=== PATIENT | female | born 1965 | race African-American/Black ===

== ENCOUNTER 2018-07-10 10:37 | Emergency (ER) | payer MEDICAID ==
[~2018-07-10] VITALS: Ht 167.6 cm; Wt 77.1 kg
[~2018-07-10 10:37] MED LIST: BACL10TA; BUSP10TA90; ESTRAVAN; TRIA37.55
[2018-07-10] MEDS ORDERED: SODIUM CHLORIDE 0.9% 500 ML IVB ONE (10:52)
[2018-07-10] MEDS ORDERED: PANTOPRAZOLE 40 MG/10 ML VIAL IV STA (10:52)
[2018-07-10] MEDS ORDERED: MORPHINE SULFATE 4 MG/ML SYR/VIAL IV ONE (11:00)
[2018-07-10] MEDS ORDERED: ONDANSETRON HCL 4 MG/2 ML VIAL IV ONE (11:00)
[2018-07-10 11:25] LABS: Basophils # (auto) 0.1 uL; Basophils % (auto) 0.7 % (0.0-2.0); Eosinophils # (auto) 0 uL; Eosinophils % (auto) 0.2 % (0.0-7.0); Hematocrit 48.3 % (36.0-46.0); Hemoglobin 16.7 g/dL (12.2-16.2); Lymphocytes # (auto) 2.1 uL; Lymphocytes % (auto) 18.2 % (10.0-50.0); Mean Corpuscular Hemoglobin 32.8 pg (28.0-32.0); Mean Corpuscular Hgb Conc. 34.6 g/dL (32.0-36.0); Mean Corpuscular Volume 94.9 fL (80.0-100.0); Monocytes # (auto) 0.8 uL; Monocytes % (auto) 6.5 % (0.0-12.0); Neutrophils # (auto) 8.7 uL; Neutrophils % (auto) 74.4 % (37.0-80.0); Nucleated Red Blood Cells % 0.1 %; Platelet Count (auto) 285 10^3/uL (140-450); Red Blood Cells 5.09 10^6/uL (4.0-5.20); Red Cell Distribution Width 14.1 % (11.8-14.3); White Blood Cell 11.7 10^3/uL (4.4-10.8)
[2018-07-10 11:37] LABS: Potassium 3.2 mmol/L (3.5-5.1)
[2018-07-10 11:40] LABS: Albumin 4.1 g/dL (3.4-5.0); Calcium 9.5 mg/dL (8.5-10.1); Magnesium 2.2 mg/dL (1.6-2.6)
[2018-07-10 11:45] LABS: BUN/Creatinine Ratio 21.1; Bilirubin, Total 0.5 mg/dL (0.2-1.0); Total Protein 8.6 g/dL (6.4-8.2)
[2018-07-10 12:17] VITALS: BP 160/93
== END 2018-07-10 13:12 | disposition home or self-care (01) ==
LOC: ER 10:37 → EDBD 10:37 → ER 13:12
DX: K52.9 Noninfective gastroenteritis and colitis, unspecified (principal); I10 Essential (primary) hypertension; F17.210 Nicotine dependence, cigarettes, uncomplicated; Z79.899 Other long term (current) drug therapy
CPT/HCPCS: 36415; 74176; 80053; 82150; 83690; 83735; 85025; 94761; 96361; 96374; 96375; 99284; C9113; J2405; J7040

== ENCOUNTER 2024-01-19 16:29 | Inpatient (IN) | payer OTHER, MEDICAID ==
[~2024-01-19] VITALS: Ht 167.6 cm; Wt 85.4 kg
[~2024-01-19 16:29] MED LIST changes: -TRIA37.55; +TRIA37.586
[2024-01-19 16:30] VITALS: PULSE 52; RESP 10; O2SAT 87
[2024-01-19] MEDS: ETOMIDATE (2MG/ML) 20ML VIAL IV ONE (16:32)
[2024-01-19] MEDS: ROCURONIUM 10MG/ML 10ML VIAL IV ONE ×3 (16:32→19:54)
[2024-01-19] MEDS: PROPOFOL 100 ML IV ONE (16:43)
--- NOTE | 2024-01-19 16:44 | ED.PDOC ---
Altered Mental Status HPI Comments 58 year old female OCHOA presents to the ED with chief complaint of seizure-like activity/LOC. EMS reports patient was last seen well 30 minutes ago, however, was found on the ground unresponsive by family. EMS relays patient was noted by family to be having seizure-like activity, but has no history of seizures. EMS denies any further history at this time. Time Seen by MD: 16:39 Primary Care Provider: GRAY Cole Notes: Nurses Notes, Molding Machine Tender Notes, Medications, Allergies Allergies: Coded Allergies: NO KNOWN ALLERGIES (Unverified , 11/04/12) Home Meds Reported Medications Baclofen (Baclofen) 10 Mg Tab, #60 01/22/15 Buspirone Hcl (Buspirone Hcl) 10 Mg Tab, #60 01/22/15 Hydrochlorothiazide W/Triamter (Triamterene/Hydrochloroth) 1 Cap Cap, #30 01/22/15 [Estravan] No Conflict Check 11/04/12 Information Source: Emergency Med Personnel Mode of Arrival: EMS Severity: Unresponsive Timing: Hours Duration: Since onset Prehospital treatment: Oxygen Quality: Decreased Alertness Recent: None History of: None Associated Signs and Symptoms: Seizure Past Medical History PAST MEDICAL HISTORY: Anxiety, HTN Surgical History: Denies all surgeries MILLER WOOD FLOUR History: No Pertinent MILLER WOOD FLOUR History Family History Family History: Unknown Social History Smoker: Cigarettes, Less Than 1 Pack/Day Alcohol: Occasionally Drugs: Denies Drug Use Lives In: Home Unable to Obtain due to: Altered Mental Status, Intubated All Other Systems: Reviewed and Negative Physical Exam General Appearance: No Apparent Distress, Normal HEENT: Normal ENT Inspection Neck: Full Range of Motion, Non-Tender, Normal, Normal Inspection Respiratory: Chest Non-Tender, Lungs Clear, No Accessory Muscle Use, No Respiratory Distress, Normal Breath Sounds Cardiovascular: No Edema, No JVD, No Murmur, No Gallop, Normal Peripheral Pulses, Regular Rate/Rhythm Breast Exam: Deferred Gastrointestinal: No Organomegaly, Non Tender, No Pulsatile Mass, Normal Bowel Sounds, Soft Genitalia: Deferred Pelvic: Deferred Rectal: Deferred Extremities: No calf tenderness, Normal capillary refill, Normal inspection, Normal range of motion, Non-tender, No pedal edema Musculoskeletal : Apperance: Normal Neurologic: Alert, sponsorship coordinator II-XII nml as Tested, No Motor Deficits, Normal Affect, Normal Mood, No Sensory Deficits Cerebellar Function: Normal Reflexes: Normal Skin: Dry, Normal Color, Warm Lymphatic: No Adenopathy Was a procedure done? Was a procedure done?: Yes Sedation Sedation?: Yes Informed consent obtained: No Sedation start time: 16:30 Sedation end time: 16:45 Sedation total time: 15 minutes Sedation provider statement: Propofol given. Central Line Recorder of insertion practice: Before [employer] Babysitter Occupation of software lead: Attending Physician Indication: Volume resuscitation, Suspected infection Room prepared for procedure: Yes [employer] Babysitter performed hand hygien: Yes Maximal sterile barrier precau: Sterile gown, Cap, Sterlie gloves, Large sterlie drape Skin Preparation: Chlorhexidine gluconate Skin preparation completely dr: Yes Insertion site: Right, Femoral Central line catheter type: [id number] dialysis Number of lumens: 3 Central line exchanged over a: No Antiseptic ointment applied to: No Post Assessment: Proper placement Informed consent obtained: No Risks/benefits/alt described: No Intubation Indication: Respiratory Insufficiency, Altered Mental Status, Airway Protection Prep: Preoxygenation Pretreated with: Sedation (Propofol) Medicated with: Other (20mg Rocuronium, 100mg Etomidate) Intubation Approach: Orotracheal Intubation size: cm (8) Informed consent obtained: No Risks/benefits/alt described: No Differential Diagnosis (ALOC) Differential Diagnosis: Hypoglycemia, DKA, Encephalopathy, Meningitis, Sepsis, Hypoxemia, Seizure, CVA, Drug Overdose, Heart Failure, Renal Failure X-Ray, Labs, Meds, VS Vital Signs Date Time Temp Pulse Resp B/P (MAP) Pulse Ox O2 Delivery O2 Flow Rate FiO2 01/19/24 19:48 198/82 01/19/24 19:20 70/43 01/19/24 19:15 51 20 70/43 (52) 86 01/19/24 19:11 80/48 01/19/24 19:00 72 20 205/115 (145) 98 01/19/24 18:50 49 200/109 01/19/24 18:45 97.5 50 20 224/137 (166) 100 97.5 01/19/24 18:39 92 26 198/108 (138) 99 100 01/19/24 18:32 224/137 01/19/24 18:30 97.2 88 20 198/108 (138) 99 97.2 01/19/24 18:15 97.2 51 20 196/105 (135) 100 97.2 01/19/24 18:00 97.3 52 20 189/104 (132) 99 97.3 01/19/24 17:45 56 20 197/110 (139) 99 01/19/24 17:45 197/110 01/19/24 17:30 57 20 177/103 (127) 100 01/19/24 17:00 74 21 191/116 (141) 100 01/19/24 16:57 97.7 97.7 01/19/24 16:56 79 20 188/120 (142) 100 100 01/19/24 16:50 79 20 190/115 (140) 100 01/19/24 16:45 188/120 01/19/24 16:45 86 20 180/120 (140) 100 01/19/24 16:40 103 15 162/117 (132) 100 01/19/24 16:38 106 20 175/125 (142) 100 01/19/24 16:33 52 10 165/83 (110) 100 01/19/24 16:32 165/83 01/19/24 16:30 52 10 87 Room Air* 0 21 01/19/24 16:30 53 01/19/24 16:29 97.7 96 8 162/117 (132) 99 Lab Test 01/19/24 18:15 01/19/24 18:12 01/19/24 17:54 01/19/24 14:03 Range/Units Urine Color Colorless Yellow Urine Clarity Clear Clear Urine pH 6.5 5.0-9.0 Urine Specific [place] 1.031 1.001-1.035 Urine Protein Negative Negative Urine Ketones Negative Negative Urine Blood Negative Negative /uL Urine Nitrite Negative Negative Urine Bilirubin Negative Negative Urine Urobilinogen Normal Negative mg/dL Urine Leukocyte Esterase Negative Negative /uL Urine RBC 1 0 - 4 /hpf Urine WBC <1 0 - 5 /hpf Urine Squamous Epithelial Cells Few <5 /hpf Urine Bacteria None seen None Seen /hpf Urine Glucose Normal Normal mg/dL Urine Opiates Screen Neg NEGATIVE Urine Fentanyl Screen Neg NEGATIVE Urine Barbiturates Screen Neg NEGATIVE Urine Phencyclidine Screen Neg NEGATIVE Urine Amphetamines Screen Neg NEGATIVE Urine Benzodiazepines Screen Neg NEGATIVE Urine Cocaine Screen Neg NEGATIVE Urine Cannabinoids Screen Neg NEGATIVE Blood Gas Specimen Type Arterial Blood Gas Sample Site Right radial Blood Gas Patient Temperature 37.0 Arterial Blood Date Drawn [id number] Arterial Blood pH 7.499 H 7.350-7.450 Arterial Blood Partial Pressure CO2 32.6 32.0-45.0 mmHg Arterial Blood Partial Pressure O2 133.9 H 83.0-108.0 mmHg Arterial Blood HCO3 24.8 21.0-28.0 mmol/L Arterial Blood Oxygen Saturation 99.0 H 94.0-98.0 % Arterial Blood Base Excess 2.4 -2.0-3.0 mmol/L Arterial Blood Oxyhemoglobin 95.5 94.0-98.0 % Arterial Blood Carboxyhemoglobin 3.0 H 0.5-1.5 % Arterial Blood Methemoglobin 0.5 0.0-1.5 % Elijah Test Modified Blood Gas Total Hemoglobin 17.00 H 12.0-16.0 g/dL Blood Gas Set Respiration Rate 20.0 Blood Gas Modality Vent - ac Blood Gas Spontaneous Rate 20 FiO2 % 100.0 Blood Gas Tidal Volume 450.0 Blood Gas PEEP or CPAP 5.0 White Blood Count 7.1 4.4-10.8 10^3/uL Red Blood Count 4.76 4.0-5.20 10^6/uL Hemoglobin 15.9 12.2-16.2 g/dL Hematocrit 46.0 36.0-46.0 % Mean Corpuscular Volume 96.7 80.0-100.0 fL Mean Corpuscular Hemoglobin 33.4 H 28.0-32.0 pg Mean Corpuscular Hemoglobin Concent 34.6 32.0-36.0 g/dL Red Cell Distribution Width 14.1 11.8-14.3 % Platelet Count 208 140-450 10^3/uL Mean Platelet Volume 8.6 6.9-10.8 fL Neutrophils (%) (Auto) 73.2 37.0-80.0 % Lymphocytes (%) (Auto) 18.1 10.0-50.0 % Monocytes (%) (Auto) 7.4 0.0-12.0 % Eosinophils (%) (Auto) 0.8 0.0-7.0 % Basophils (%) (Auto) 0.5 0.0-2.0 % Neutrophils # (Auto) 5.2 1.6-8.6 10 ^3/uL Lymphocytes # (Auto) 1.3 0.4-5.4 10 ^3/uL Monocytes # (Auto) 0.5 0-1.3 10 ^3/uL Eosinophils # (Auto) 0.1 0-0.8 10 ^3/uL Basophils # (Auto) 0 0-0.2 10 ^3/uL Nucleated Red Blood Cells 0.1 % Sodium Level 140 136-145 mmol/L Potassium Level 2.7 L 3.5-5.1 mmol/L Chloride Level 106 98-107 mmol/L Carbon Dioxide Level 26 20-31 mmol/L Anion Gap 8 5-15 Blood Urea Nitrogen < 5 L 9-23 mg/dL Creatinine 0.90 0.550-1.02 mg/dL Glomerular Filtration Rate Calc 73 >90 mL/min BUN/Creatinine Ratio 5.6 L 10.0-20.0 Serum Glucose 130 H 74-106 mg/dL Lactic Acid Level 1.2 0.4-2.0 mmol/L Calcium Level 10.2 8.7-10.4 mg/dL Total Bilirubin 1.1 H 0.2-1.0 mg/dL Aspartate Amino Transferase (AST) 14 13-40 U/L Alanine Aminotransferase (ALT) 17 7-40 U/L Alkaline Phosphatase 80 46-116 U/L Troponin I High Sensitivity 10 14 </=34 ng/L B-Type Natriuretic Peptide 25.66 0-100 pg/mL Total Protein 7.3 5.7-8.2 g/dL Albumin 4.4 3.2-4.8 g/dL Current Medications Medications (Trade) Dose Ordered Sig/Zenon Route Start Time Stop Time Status Last Admin Propofol 100 ml @ 2.7 mls/hr Q24H IV 01/19/24 16:45 01/19/24 16:45 Etomidate 20 mg ONCE ONCE IV 01/19/24 18:00 01/19/24 18:01 MA 01/19/24 16:32 Rocuronium Lutz 100 mg ONCE ONCE IV 01/19/24 18:00 01/19/24 18:01 MA 01/19/24 16:32 Vancomycin HCl 200 ml @ 200 mls/hr ONCE ONCE IV 01/19/24 18:15 01/19/24 19:14 DC 01/19/24 18:26 Azithromycin 250 ml @ 125 mls/hr ONCE ONCE IV 01/19/24 18:15 01/19/24 20:14 DC 01/19/24 20:43 Nicardipine HCl 250 ml @ 50 mls/hr Q5H IV 01/19/24 18:45 01/19/24 18:50 Norepinephrine Bitartrate 250 ml @ 3.75 mls/hr Q24H IV 01/19/24 19:45 01/19/24 19:11 Rocuronium Lutz 100 mg ONCE ONCE IV 01/19/24 19:45 01/19/24 19:46 DC 01/19/24 19:48 CT Head: Findings: Mild diffuse brain atrophy. Mild chronic small-vessel ischemic changes. No hemorrhages, masses, mass effect, midline shift, herniation or cytotoxic edema following a large vascular territory. No intra-axial or extra-axial fluid collections. No evidence of hydrocephalus. The basal cisterns are patent. The cerebellar tonsils are in normal position. The cerebellum is unremarkable.Nonspecific partially empty sella. The orbits and globes are unremarkable. Mucoperiosteal thickening of the ethmoid air cells. The remainder of the paranasal sinuses and mastoids are clear. There are no worrisome calvarial lesions. Impression: No evidence of acute intracranial abnormality. Nonspecific partially empty sella. Head/Neck CT: 1. No large vessel occlusion or high-grade stenosis in the arteries of the head and neck. 2. 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 3. Large amount of fluid in the oropharynx and nasopharynx. Fluid is seen in the dependent portion of trachea. Pulmonary opacities in the right upper lobe and asymmetric reduction in right lung volume. Aspiration pneumonia can not be ruled out. Recommend suctioning of the fluid in oropharynx and trachea. CT Chest/Abd/Pel W/ IV Con: Endotracheal tube with tip terminating superior to t he level of the clavicles. Recommend advancing 5 cm and obtaining follow-up radiographs. Right lower lobe consolidation with rightward deviation of the mediastinum. This may represent a large atelectasis with right lower lobe collapse versus possible mucous plug. A superimposed infectious process is not completely excluded. Fatty infiltration of the cecum which is nonspecific. Chest XR: No acute cardiopulmonary process. X-Ray, Labs, Meds, VS Comment @2030: Dr. Valdez came by bedside and performed a bronchoscopy on the patient at this time. Images Reviewed?: Images reviewed and evaluated by me Time of 1ST Reevaluation: 17:39 Reevaluation 1ST: Unchanged Patient Education/Counseling: Pt Unresponsive Family Education/Counseling: No Family Present Departure 1 Departure Time of Disposition: 20:48 (Patient presented critically ill. She was unresponsive with agonal breathing. Patient was emergently intubated. Central line was placed. Emergent CT scans were taken. Determine the patient did not have an obvious stroke. She was started on antibiotics, fluids, and pressors . She had what appeared to me to be a right lung collapse likely 2/[address] Valdez came to the bedside and bronched the patient. Patient to be admitted to the ICU in critical condition.) Impression: Primary Impression: Acute respiratory failure with hypoxemia Additional Impressions: Acute metabolic encephalopathy Collapse of right lung Disposition: ADMITTED INPATIENT Admit to: ICU Condition: Critical Critical Care Note Critical Care Time?: Yes Critical care comment: Acute respiratory failure Authorized and Performed by: Hansel Carrero MD Total critical care time: Approximately 140 minutes Due to a high probability of clinically significant, life threatening deterioration, the patient required my highest level of preparedness to intervene emergently and I personally spent this critical care time directly and personally managing the patient. This critical care time included obtaining a history; examining the patient; pulse oximetry; ordering and review of studies; arranging urgent treatment with development of a management plan; evaluation of patient's response to treatment; frequent reassessment; and, discussions with other providers. This critical care time was performed to assess and manage the high probability of imminent, life-threatening deterioration that could result in multi-organ failure. It was exclusive of separately billable procedures and treating other patients and teaching time. Please see my other sections and the rest of the note for further information on patient assessment and treatment. Stability Stability form required: No Heart Score Heart Score: Heart Score Response (Comments) Value History N/A 0 EKG N/A 0 Age N/A 0 Risk Factors N/A 0 Troponin N/A 0 Total 0 I personally scribed for HANSEL CARRERO MD ([email or web address]) on 01/19/24 at 16:44. Electronically submitted by Bon Smart ([email or web address]). I personally scribed for HANSEL CARRERO MD ([email or web address]) on 01/19/24 at 17:58. Electronically submitted by Bon Smart ([email or web address]). I personally scribed for [facility] on 01/19/24 at 17:59. Electronically submitted by Bon Smart ([email or web address]). I personally scribed for HANSEL CARRERO MD ([facility] on 01/19/24 at 18:22. Electronically submitted by Bon Smart ([email or web address]). I personally scribed for HANSEL CARRERO MD ([email or web address]) on 01/19/24 at 18:28. Electronically submitted by Bon Smart ([email or web address]). I personally scribed for HANSEL CARRERO MD ([email or web address]) on 01/19/24 at 20:44. Electronically submitted by Bon Smart ([email or web address]). HANSEL CARRERO MD Jan 19, 2024 16:44
[2024-01-19] MEDS: PROPOFOL 100 ML IV SCH (16:45)
[2024-01-19] MEDS: IOHEXOL 180 MG/ML 20ML VIAL IJ ONE (17:49)
--- NOTE | 2024-01-19 17:51 | DVH ---
Procedure: CT HEAD WITHOUT CONTRAST Study Date and Requested Time: 01/19/2024 05:14 PM History:ams, intubated Comparison: None Dose: CTDI: 55.48 mGy DLP: 1000.27 mGycm Technique: Multiplanar images obtained through the brain without intravenous contrast. Findings: Mild diffuse brain atrophy. Mild chronic small-vessel ischemic changes. No hemorrhages, masses, mass effect, midline shift, herniation or cytotoxic edema following a large v ascular territory. No intra-axial or extra-axial fluid collections. No evidence of hydrocephalus. The basal cisterns are patent. The cerebellar tonsils are in normal position. The cerebellum is unremarkable.Nonspecific partially e mpty sella. The orbits and globes are unremarkable. Mucoperiosteal thickening of the ethmoid air cells. The [place]ent[place] ju of the paranasal sinuses and mastoids are clear. There are no worrisome calvarial lesions. Impression: No evidence of acute intracranial abnormality. Nonspecific partially empty sella.
[2024-01-19] MEDS: IOHEXOL 350 MG/ML 100ML IJ ONE (17:54)
--- NOTE | 2024-01-19 18:09 | DVH ---
EXAM: CT ANGIO HEAD/NECK HISTORY: ams, intubated COMPARISON: CT brain without contrast performed earlier today TECHNIQUE: CTA imaging of the head was performed through the [place] following the uneventf ul administration of intravenous contrast. Sagittal and coronal reformatted images were obtained from the source data. 3D/MIP post-processing of the source data set was performed and reviewed by the rad iologist. Radiation Dose Information: CT Dose: CTDI volume is 39.96 mGy. Dose-length product is 1268.95 mGy*cm All CT scans at this medical facility are performed using dose modulation techniques as appropriate t o a performed exam including the following: Automated exposure control was utilized; adjustment of th e MA and/or KV according to patient size; and use of iterative reconstruction technique. FINDINGS: CTA Neck: Aortic Arch: Common origin of the right brachiocephalic and left common carotid arteries. Right brachiocephalic artery: Unremarkable. Right carotid artery: Mild calcified plaque formation of the carotid bulb and proximal ICA without si gnificant stenosis. Right subclavian artery: Unremarkable. Right vertebral artery: Unremarkable. Left carotid artery: Mild calcified plaque formation of the carotid bulb and proximal ICA without sig nificant stenosis. Left subclavian artery: Unremarkable. Left vertebral artery: Unremarkable. OTHER: Pulmonary opacities are seen in the right upper lobe. There is asymmetric reduction in the pa rtially seen right lung volume. Fluid is layered in the dependent portion of trachea. Large amount of fluid is seen in the oropharynx and nasopharynx. Ethmoid is opacified. ETT and NGT are noted. Promin ent thyroid several small hypodense nodules. CTA Head: [place]: The arteries of [place] are patent. Mild scattered calcified plaques of the carotid siphon noted bilaterally without significant stenosis. 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 Dural venous: Grossly unremarkable. Other: None. IMPRESSION: 1. No large vessel occlusion or high-grade stenosis in the arteries of the head and neck. 2. 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 3. Large amount of fluid in the oropharynx and nasopharynx. Fluid is seen in the dependent portion o f trachea. Pulmonary opacities in the right upper lobe and asymmetric reduction in right lung volume. Aspiration pneumonia can not be ruled out. Recommend suctioning of the fluid in oropharynx and trac hea.
--- NOTE | 2024-01-19 18:14 | DVH ---
EXAM: XR Chest, 1 View CLINICAL INDICATION: Post intubation TECHNIQUE: Frontal view of the chest. COMPARISON: None FINDINGS: LUNGS AND PLEURAL SPACES: Congestion. No consolidation. No pneumothorax. HEART: Unremarkable. No cardiomegaly. MEDIASTINUM: Unremarkable. Normal mediastinal contour. BONES/JOINTS: Unremarkable. No acute fracture. TUBES, LINES AND DEVICES: Enteric tube tip in the stomach. ETT nonvisualized. Clinical correlation is recommended. OTHER FINDINGS: . . IMPRESSION: No acute cardiopulmonary process. HS:Y
[2024-01-19 18:19] LABS: Base Excess 2.4 mmol/L (-2.0-3.0)
--- NOTE | 2024-01-19 18:22 | DVH ---
Exam: CT CT CHEST/AB/PL W CON- IV ONLY History: found down ams, intubated Comparison Study: None available at time of dictation. Technique: Multidetector spiral CT of the chest, abdomen and pelvis was performed from lower neck to pubic symphysis. Intravenous contrast was administered during this examination. Portal venous imagi ng was obtained. Axial, coronal and sagittal multiplanar reformats were performed by the technologist on a separate workstation. Radiation Dose : 1. Chest/Abdomen/Pelvis: CTDIvol 19 mGy, DLP 1391 mGy*cm. Findings: Endotracheal tube with tip terminating superior to the level of the clavicles. Recommend advancing 5 cm and obtaining follow-up radiographs. Enteric tube terminating within the stomach. Right groin CVC with tip terminating in the external iliac vein. Lower neck: Within normal limits Lungs: Right lower lobe consolidation concerning for atelectasis. Heart/Vascular Structures: Mild cardiomegaly. Mild calcification of the coronary vessels. There is ri ghtward deviation of the mediastinum. Lymph Nodes: No adenopathy Pleura: Within normal limits Liver: The liver is normal in size. No focal lesions. Normal hepatic vascular enhancement. Gallbladder and Biliary Tree: Unremarkable Spleen: Unremarkable Pancreas: The pancreas is normal in appearance without focal lesions or abnormal enhancement. Adrenal Glands: Unremarkable Kidneys: Kidneys demonstrate normal symmetric enhancement without focal lesions, calculi or hydroneph rosis. Subcentimeter cystic lesion in the right kidney. Bladder: Alberts catheter within urinary bladder. Bowel: The stomach is grossly normal in appearance. Small bowel and colon are normal in caliber and d istribution. The appendix is not visualized; however, no secondary findings of acute appendicitis id entified. Fatty infiltration of the cecum. Ascites: Absent Lymphadenopathy: No mesenteric, retroperitoneal or periportal lymphadenopathy. Abdominal Wall and Mesentery: Unremarkable. Vasculature: The visualized abdominal aorta is normal in size and caliber. Abdominal and pelvic vess els demonstrate normal enhancement. Pelvic Organs: Unremarkable Musculoskeletal: No aggressive focal bony lesions, acute fractures or dislocation. IMPRESSION: Endotracheal tube with tip terminating superior to the level of the clavicles. Recommend advancing 5 cm and obtaining follow-up radiographs. Right lower lobe consolidation with rightward deviation of the mediastinum. This may represent a larg e atelectasis with right lower lobe collapse versus possible mucous plug. A superimposed infectious process is not completely excluded. Fatty infiltration of the cecum which is nonspecific.
[2024-01-19 18:25] LABS: Urine Bacteria None Seen /hpf (None Seen)
[2024-01-19] MEDS: VANCOMYCIN 1GM/200ML PREMIX 200 ML IV ONE (18:26)
[2024-01-19 18:40] LABS: Basophils # (auto) 0 10 ^3/uL (0-0.2); Basophils % (auto) 0.5 % (0.0-2.0); Eosinophils # (auto) 0.1 10 ^3/uL (0-0.8); Eosinophils % (auto) 0.8 % (0.0-7.0); Hemoglobin 15.9 g/dL (12.2-16.2); Lymphocytes # (auto) 1.3 10 ^3/uL (0.4-5.4); Lymphocytes % (auto) 18.1 % (10.0-50.0); Mean Corpuscular Hemoglobin 33.4 pg (28.0-32.0); Mean Corpuscular Hgb Conc. 34.6 g/dL (32.0-36.0); Mean Corpuscular Volume 96.7 fL (80.0-100.0); Monocytes # (auto) 0.5 10 ^3/uL (0-1.3); Monocytes % (auto) 7.4 % (0.0-12.0); Neutrophils # (auto) 5.2 10 ^3/uL (1.6-8.6); Neutrophils % (auto) 73.2 % (37.0-80.0); Nucleated Red Blood Cells % 0.1 %; Platelet Count (auto) 208 10^3/uL (140-450); Red Blood Cells 4.76 10^6/uL (4.0-5.20); Red Cell Distribution Width 14.1 % (11.8-14.3); White Blood Cell 7.1 10^3/uL (4.4-10.8)
[2024-01-19 18:43] LABS: Urine Blood Negative /uL (Negative); Urine Clarity Clear (Clear); Urine Color Colorless (Yellow); Urine Protein, UAD Negative (Negative); Urine Specific Gravity 1.031 (1.001-1.035); Urine Urobilinogen Normal (Negative); Urine WBC <1 /hpf (0 - 5); Urine pH 6.5 (5.0-9.0)
[2024-01-19 18:48] LABS: Amphetamine Screen, Urine Neg (NEGATIVE); Barbiturate Scree,Urine Neg (NEGATIVE); Benzodiazephine Screen, Urine Neg (NEGATIVE); Cannabinoid Screen, Urine Neg (NEGATIVE); Cocaine Screen, Urine Neg (NEGATIVE); Opiate Scree,Urine Neg (NEGATIVE); Phencyclidine Screen, Urine Neg (NEGATIVE)
[2024-01-19 18:49] LABS: Alanine Aminotransferase 17 U/L (7-40); Albumin 4.4 g/dL (3.2-4.8); Alkaline Phosphatase 80 U/L (46-116); Anion Gap 8 (5-15); Aspartate Aminotransferase 14 U/L (13-40); Bilirubin, Total 1.1 mg/dL (0.2-1.0); Calcium 10.2 mg/dL (8.7-10.4); Carbon Dioxide 26 mmol/L (20-31); Chloride 106 mmol/L (98-107); Glucose 130 mg/dL (74-106); Potassium 2.7 mmol/L (3.5-5.1); Sodium 140 mmol/L (136-145); Total Protein 7.3 g/dL (5.7-8.2)
[2024-01-19 19:07] LABS: BUN/Creatinine Ratio 5.6 (10.0-20.0); Blood Urea Nitrogen < 5 mg/dL (9-23)
[2024-01-19] MEDS: NOREPINEPHRINE 8 MG/250ML KIT 250 ML IV SCH (19:11)
--- NOTE | 2024-01-19 19:20 | DVH ---
CHEST RADIOGRAPH Indication:s/p advancing tube Technique: Single frontal view of the chest was obtained Comparison: XY CHEST PORTABLE on DOS: 01/19/24 Findings/ IMPRESSION: Endotracheal tube projects 5.7 cm superior to the toño. Enteric tube projects terminating within th e stomach. Opacification of the right lower lung zone concerning for atelectasis with superimposed in fection not excluded. There is mild rightward deviation of the mediastinum.
[2024-01-19 19:30] VITALS: PULSE 56; RESP 20; O2SAT 100
[2024-01-19 20:08] VITALS: BP 167/107; PULSE 88; RESP 20; O2SAT 99
[2024-01-19] MEDS: AZITHROMYCIN 500MG/ 250ML 250 ML IV ONE (20:43)
--- NOTE | 2024-01-19 21:10 | DVHINCON2 ---
Date of service: Jan 19, [address] Ortega Reason for Consultation Acute hypoxic respiratory failure, suspected mucous plugging. History of Present Illness 58-year-old woman history of anxiety, hypertension who presented with seizure- like activity and loss of consciousness. EMS reports patient was last seen well 30 minutes ago. She was found on the ground unresponsive by family. EMS relays patient was noted by family to have seizure-like activity. No prior history of seizures. She was currently sedated, intubated on mechanical ventilator in the emergency department. Pulmonary consultation was called emergently due to suspected mucus plugging in the right lung, emergent bronchoscopy on mechanical ventilator management. Review of systems: 14 point review of systems is negative unless otherwise noted above. Past medical history: Hypertension, anxiety Past surgical history: None mentioned in prior surgeries. Medications: Reviewed Allergies: No known drug allergies. Family history: No family history of premature CAD. No family history of lung disease Social history: Smoker, less than one pack per day. Social alcohol use. No illicit drug use. Lives at home. Allergies: Coded Allergies: NO KNOWN ALLERGIES (Unverified , 11/04/12) Home Meds Reported Medications Baclofen (Baclofen) 10 Mg Tab, #60 01/22/15 Buspirone Hcl (Buspirone Hcl) 10 Mg Tab, #60 01/22/15 Hydrochlorothiazide W/Triamter (Triamterene/Hydrochloroth) 1 Cap Cap, #30 01/22/15 [Estravan] No Conflict Check 11/04/12 Current Medications Current Medications Medications (Trade) Dose Ordered Sig/Zenon Route PRN Reason Start Time Stop Time Status Last Admin Propofol 100 ml @ 2.7 mls/hr Q24H IV 01/19/24 16:45 01/19/24 16:45 Nicardipine HCl 250 ml @ 50 mls/hr Q5H IV 01/19/24 18:45 01/19/24 18:50 Norepinephrine Bitartrate 250 ml @ 3.75 mls/hr Q24H IV 01/19/24 19:45 01/19/24 19:11 Vital Signs Vital Signs Date Time Temp Pulse Resp B/P (MAP) Pulse Ox O2 Delivery O2 Flow Rate FiO2 01/19/24 19:48 198/82 01/19/24 19:15 51 20 86 01/19/24 18:45 97.5 97.5 01/19/24 18:39 100 01/19/24 16:30 Room Air* 0 Physical Exam Gen.: Patient lying in bed in medical ICU. Sedated, intubated on mechanical ventilator. Head: Normocephalic, atraumatic. Eyes: PERRLA. Ears: Normal external anatomy. Throat: Endotracheal tube and orogastric tube in place. Neck: Supple, trachea midline. Chest: Transmitted breath sounds bilaterally. Decreased air entry bilaterally. No wheezing. Bibasilar crackles. Cardio vascular: Positive S1, positive S2. Regular rate and rhythm. Abdomen: Positive bowel sounds in all 4 quadrants. Soft, nontender, non distended. : Alberts in place. Normal external genitalia. Rectal: Deferred Skin: Warm, dry. Intact. Extremities: 2+ radial pulses bilaterally. No lower extremity edema. Neuro: Sedated. Labs/Diagnostic Data Labs Test 01/19/24 18:15 01/19/24 18:12 01/19/24 17:54 Range/Units Urine Color Colorless Yellow Urine Clarity Clear Clear Urine pH 6.5 5.0-9.0 Urine Specific Jean 1.031 1.001-1.035 Urine Protein Negative Negative Urine Ketones Negative Negative Urine Blood Negative Negative /uL Urine Nitrite Negative Negative Urine Bilirubin Negative Negative Urine Urobilinogen Normal Negative mg/dL Urine Leukocyte Esterase Negative Negative /uL Urine RBC 1 0 - 4 /hpf Urine WBC <1 0 - 5 /hpf Urine Squamous Epithelial Cells Few <5 /hpf Urine Bacteria None seen None Seen /hpf Urine Glucose Normal Normal mg/dL Urine Opiates Screen Neg NEGATIVE Urine Fentanyl Screen Neg NEGATIVE Urine Barbiturates Screen Neg NEGATIVE Urine Phencyclidine Screen Neg NEGATIVE Urine Amphetamines Screen Neg NEGATIVE Urine Benzodiazepines Screen Neg NEGATIVE Urine Cocaine Screen Neg NEGATIVE Urine Cannabinoids Screen Neg NEGATIVE Blood Gas Specimen Type Arterial Blood Gas Sample Site Right radial Blood Gas Patient Temperature 37.0 Arterial Blood Date Drawn [id number] Arterial Blood pH 7.499 H 7.350-7.450 Arterial Blood Partial Pressure CO2 32.6 32.0-45.0 mmHg Arterial Blood Partial Pressure O2 133.9 H 83.0-108.0 mmHg Arterial Blood HCO3 24.8 21.0-28.0 mmol/L Arterial Blood Oxygen Saturation 99.0 H 94.0-98.0 % Arterial Blood Base Excess 2.4 -2.0-3.0 mmol/L Arterial Blood Oxyhemoglobin 95.5 94.0-98.0 % Arterial Blood Carboxyhemoglobin 3.0 H 0.5-1.5 % Arterial Blood Methemoglobin 0.5 0.0-1.5 % Elijah Test Modified Blood Gas Total Hemoglobin 17.00 H 12.0-16.0 g/dL Blood Gas Set Respiration Rate 20.0 Blood Gas Modality Vent - ac Blood Gas Spontaneous Rate 20 FiO2 % 100.0 Blood Gas Tidal Volume 450.0 Blood Gas PEEP or CPAP 5.0 White Blood Count 7.1 4.4-10.8 10^3/uL Red Blood Count 4.76 4.0-5.20 10^6/uL Hemoglobin 15.9 12.2-16.2 g/dL Hematocrit 46.0 36.0-46.0 % Mean Corpuscular Volume 96.7 80.0-100.0 fL Mean Corpuscular Hemoglobin 33.4 H 28.0-32.0 pg Mean Corpuscular Hemoglobin Concent 34.6 32.0-36.0 g/dL Red Cell Distribution Width 14.1 11.8-14.3 % Platelet Count 208 140-450 10^3/uL Mean Platelet Volume 8.6 6.9-10.8 fL Neutrophils (%) (Auto) 73.2 37.0-80.0 % Lymphocytes (%) (Auto) 18.1 10.0-50.0 % Monocytes (%) (Auto) 7.4 0.0-12.0 % Eosinophils (%) (Auto) 0.8 0.0-7.0 % Basophils (%) (Auto) 0.5 0.0-2.0 % Neutrophils # (Auto) 5.2 1.6-8.6 10 ^3/uL Lymphocytes # (Auto) 1.3 0.4-5.4 10 ^3/uL Monocytes # (Auto) 0.5 0-1.3 10 ^3/uL Eosinophils # (Auto) 0.1 0-0.8 10 ^3/uL Basophils # (Auto) 0 0-0.2 10 ^3/uL Nucleated Red Blood Cells 0.1 % Sodium Level 140 136-145 mmol/L Potassium Level 2.7 L 3.5-5.1 mmol/L Chloride Level 106 98-107 mmol/L Carbon Dioxide Level 26 20-31 mmol/L Anion Gap 8 5-15 Blood Urea Nitrogen < 5 L 9-23 mg/dL Creatinine 0.90 0.550-1.02 mg/dL Glomerular Filtration Rate Calc 73 >90 mL/min BUN/Creatinine Ratio 5.6 L 10.0-20.0 Serum Glucose 130 H 74-106 mg/dL Lactic Acid Level 1.2 0.4-2.0 mmol/L Calcium Level 10.2 8.7-10.4 mg/dL Total Bilirubin 1.1 H 0.2-1.0 mg/dL Aspartate Amino Transferase (AST) 14 13-40 U/L Alanine Aminotransferase (ALT) 17 7-40 U/L Alkaline Phosphatase 80 46-116 U/L Troponin I High Sensitivity 10 </=34 ng/L B-Type Natriuretic Peptide 25.66 0-100 pg/mL Total Protein 7.3 5.7-8.2 g/dL Albumin 4.4 3.2-4.8 g/dL Assessment Impression: Acute hypoxic respiratory failure On mechanical ventilator Aspiration pneumonia Acute metabolic encephalopathy Mucus plugging causing collapse of the right lung Atelectasis Obesity, BMI 31.1 Hypokalemia Plan: s/p intubation on mechanical ventilator Head CT : NO acute intracranial abnormality. CXR image and report reviewed. CT chest report and images reviewed: Rightward deviation of the mediastinum. Atelectasis with right lower lobe. Possible mucus plugging. Can not rule out superimposed pneumonia. ABG reviewed. Alkalemia due to respiratory alkalosis. On assist control with respiratory rate of 20, tidal volume 450, peep of five, FiO2 at 100% Titrate FIO2 to keep O2 saturation above 92%. VAP bundle Daily ABG and CXR while intubated. Sedate for ventilatory synchrony. Recommend Propofol and Fentanyl drips. Recommend to taper versed drip. On pressors for hemodynamic support. On Levophed at 10 micrograms/minute. Titrate to keep MAP above 65 mmHg/SBP above 90 mmHg. Continue broad spectrum antibiotics. F/u cultures. F/u RML BAL cultures Monitor renal function due to Acute kidney injury. Monitor electrolytes. Supplement as necessary. Nutritional support. Accucheks, ISS. On nicardipine drip for BP control GI/DVT prophylaxis. Updated family at bedside regarding management plan. Consent obtained for bronchoscopy. With full knowledge of risks and benefits, mother agreed for bronchoscopy with Bronchoalveolar lavage. Condition: Critical Prognosis: Poor given multiple comorbidities. Rest of plan per hospitalist and other consultants. A total of 36 minutes of critical care time was spent reviewing the patient record, examining the patient, making a diagnostic and therapeutic plan, discussing this plan with the medical personnel, following up on diagnostic studies and following the patient for clinical stability excluding any and all procedures. At least 50% of this time was spent in direct, [id number] contact. Thank you Dr. Ortega for allowing me to participate in this patient's care. Further recommendations will depend on patient's clinical course. Please do not hesitate to contact me if you have any questions or concerns. This medical document was created using an electronic medical record system with [employer] dictation system. Although this document has been carefully reviewed, there may still be some phonetic and typographical errors. These areas are purely typographical due to imperfections of the software programs, and do not reflect any compromise in the patient's medical care. Plan discussed with: Other (Mother, RN Graciela, RT MD Shannon Colon, MD Del Valle) CJ FYO MD Jan 19, 2024 21:10
--- NOTE | 2024-01-19 21:14 | DVHNC2 ---
Procedure - Bronchoscopy procedure note: Indications: Right lower lobe collapse, Possible mucous plugging. Medicines: See ED RN notes. Complications: None Procedure: Patient medications and allergies reviewed. The risks and benefits of the procedure and the sedation options and risk were discussed with the patient's healthcare proxy. All questions were answered and informed consent was obtained. Patient identification and proposed procedure were verified prior to the procedure by the physician, and a nurse, and the respiratory therapist in ICU room. The heart rate, respiratory rate, oxygen saturations, blood pressure, adequacy of pulmonary ventilation, and response to care were monitored throughout the procedure. The physical status of the patient was reassessed after the procedure. After obtaining informed consent, the bronchoscope was introduced through the endotracheal tube and advanced into the trachea bronchial tree of both lungs. The procedure was accomplished without difficulty. The patient tolerated the procedure well. Findings: The trachea is in normal caliber. The toño is sharp. The tracheobronchial tree of the right lung was examined to at least the first subsegmental level. The bronchial mucosa and anatomy in the right lung are normal. There are no endobronchial lesions. There was copious clear viscous secretions from right main stem bronchus onward throughout R1-R10. These were suctioned and cleared out. Right middle lobe (RML) Bronchoalveolar lavage (BAL) obtained. RML BAL sent for gram stain and culture. The left upper lobe, lingula, and left lower lobe were examined to at least the first subsegmental level. Bronchial mucosa and anatomy in the left upper lobe and lingula are normal. There were no endobronchial lesions. There was no secretions. There was no active bleeding at the completion of the procedure. Copious clear viscous secretions were suctioned from oropharynx. Likely source of contents found in right lung. Estimated blood loss: Less than 5 mL. Impression: Right upper and lower lobe atelectasis due to mucous plugging Mucous plugging from R1-R10 RML BAL performed Recommendation: Follow-up RML BAL results. Procedure codes: 37165, bronchoscopy, rigid and flexible, including fluoroscopic guidance, one performed; with bronchial endobronchial broncho-alveolar lavage, single or multiple sites CJ FOY MD Jan 19, 2024 21:14
--- NOTE | 2024-01-19 21:26 | DVH ---
CHEST RADIOGRAPH Indication:S/P BRONCHOSCOPY Technique: Single frontal view of the chest was obtained Comparison: XY CHEST PORTABLE on DOS: 01/19/24, XY CHEST PORTABLE on DOS: 01/19/24 Findings/ IMPRESSION: Endotracheal tube projects 4.2 cm superior to the toño. Enteric tube projecting in the stomach. Rig ht lower lung zone opacification concerning for pleural effusion versus atelectasis versus pneumonia. No pneumothorax.
[2024-01-19] MEDS ORDERED: ALBUTEROL SULF 2.5 MG/0.5ML(0.5%) NEB SOLN NEB PRN (22:00)
[2024-01-19] MEDS ORDERED: ACETAMINOPHEN 325 MG TAB PO PRN (22:00)
[2024-01-19] MEDS ORDERED: MORPHINE SULFATE INJ 2 MG/ml SYRG IV PRN (22:00)
[2024-01-19] MEDS ORDERED: ONDANSETRON HCL 4 MG/2 ML VIAL IV PRN (22:00)
[2024-01-19] MEDS ORDERED: NITROGLYCERIN 0.4 MG SL TAB SL PRN (22:00)
[2024-01-19] MEDS ORDERED: IPRATROPIUM BROM 0.5 MG/2.5ML INH SOL NEB PRN (22:00)
[2024-01-19 22:40] VITALS: BP 178/80; PULSE 84; RESP 20; O2SAT 99
[2024-01-19] MEDS: hydrALAZINE HCL 20 MG/ML VL IV ONE (22:54)
[2024-01-19] MEDS: POTASSIUM CHL 20MEQ/100ML 100 ML IV SCH (23:01)
[2024-01-19] MEDS: D5W/SOD CHL 0.45% 1,000 ML IV SCH (23:03)
[2024-01-19 23:20] VITALS: BP 178/80; PULSE 84; RESP 20; TEMP 97.5; O2SAT 100
[2024-01-19] MEDS: CEFEPIME 2GM/50ML NS 50 ML IV ONE (23:30)
[2024-01-20] VITALS (110 sets, daily range): BP systolic 104–204; BP diastolic 47–136; PULSE 58–139; RESP 13–25; TEMP 98.4–99.9; O2SAT 95–100
[2024-01-20 00:39] LABS: Base Excess -1.4 mmol/L (-2.0-3.0)
[2024-01-20 02:38] LABS: Basophils # (auto) 0 10 ^3/uL (0-0.2); Basophils % (auto) 0.3 % (0.0-2.0); Eosinophils # (auto) 0 10 ^3/uL (0-0.8); Eosinophils % (auto) 0.1 % (0.0-7.0); Hemoglobin 16.2 g/dL (12.2-16.2); Lymphocytes # (auto) 1.3 10 ^3/uL (0.4-5.4); Lymphocytes % (auto) 7.7 % (10.0-50.0); Mean Corpuscular Hemoglobin 33.4 pg (28.0-32.0); Mean Corpuscular Hgb Conc. 34.5 g/dL (32.0-36.0); Mean Corpuscular Volume 96.6 fL (80.0-100.0); Monocytes # (auto) 1.1 10 ^3/uL (0-1.3); Monocytes % (auto) 6.6 % (0.0-12.0); Neutrophils # (auto) 13.9 10 ^3/uL (1.6-8.6); Neutrophils % (auto) 85.3 % (37.0-80.0); Platelet Count (auto) 219 10^3/uL (140-450); Red Blood Cells 4.87 10^6/uL (4.0-5.20); White Blood Cell 16.3 10^3/uL (4.4-10.8)
[2024-01-20 02:55] LABS: Alanine Aminotransferase 14 U/L (7-40); Albumin 4.4 g/dL (3.2-4.8); Alkaline Phosphatase 81 U/L (46-116); Anion Gap 11 (5-15); Aspartate Aminotransferase 11 U/L (13-40); Calcium 9.4 mg/dL (8.7-10.4); Carbon Dioxide 23 mmol/L (20-31); Chloride 110 mmol/L (98-107); Glucose 160 mg/dL (74-106); Potassium 3.5 mmol/L (3.5-5.1); Sodium 144 mmol/L (136-145)
[2024-01-20 02:56] LABS: Bilirubin, Total 0.9 mg/dL (0.2-1.0); Total Protein 7.1 g/dL (5.7-8.2)
[2024-01-20 03:29] LABS: BUN/Creatinine Ratio 6.8 (10.0-20.0); Blood Urea Nitrogen < 5 mg/dL (9-23)
[2024-01-20 06:45] LABS: Base Excess -1.9 mmol/L (-2.0-3.0)
--- NOTE | 2024-01-20 06:57 | DVHHP2 ---
History of Present Illness Reason for Visit: Altered mental status History of Present Illness 58-year-old female presents for evaluation of altered mental status. Patient was found unresponsive by family members. Patient was transferred to the emergency department and intubated on arrival. Patient's right lung was noted to be collapsed up with possible mucus plug. Bedside bronchoscopy was performed with positive reinflation of the right lung. Patient is currently sedated and intubated. No further history could be obtained at the moment. Past Medical History Hypertension Past Surgical History Unknown Family History Unknown Smoke: 2 packs per day ALCOHOL: none Lives: with Family Review of Systems Review of Systems Review of systems can not be completed, patient is sedated and intubated. Allergies: Coded Allergies: NO KNOWN ALLERGIES (Unverified , 11/04/12) Medications Current Medications Medications Dose Ordered Sig/Zenon Route Start Time Stop Time Status Last Admin Dose Admin Propofol 100 ml @ 2.7 mls/hr Q24H IV 01/19/24 16:45 01/20/24 03:06 16.2 MLS/HR Nicardipine HCl 250 ml @ 50 mls/hr Q5H IV 01/19/24 18:45 01/20/24 00:15 50 MLS/HR Norepinephrine Bitartrate 250 ml @ 3.75 mls/hr Q24H IV 01/19/24 19:45 01/19/24 19:11 3.75 MLS/HR Albuterol 2.5 mg Q6HPRN PRN NEB 01/19/24 22:00 Ipratropium Egan 0.5 mg Q6HPRN PRN NEB 01/19/24 22:00 Ondansetron HCl 4 mg Q4HP PRN IV 01/19/24 22:00 Enoxaparin Sodium 40 mg DAILY SC 01/20/24 10:00 Acetaminophen 650 mg Q6HP PRN PO 01/19/24 22:00 Nitroglycerin 0.4 mg Q5MINP PRN SL 01/19/24 22:00 Morphine Sulfate 2 mg Q30M PRN IV 01/19/24 22:00 Dextrose/Sodium Chloride 1,000 ml @ 65 mls/hr [id number] IV 01/19/24 22:00 01/19/24 23:03 65 MLS/HR Exam Vital Signs Vital Signs Date Time Temp Pulse Resp B/P (MAP) Pulse Ox O2 Delivery O2 Flow Rate FiO2 01/20/24 06:17 67 01/20/24 06:17 20 98 Mechanical Ventilator+ 30 30 01/20/24 04:30 99.7 132/70 (90) 99.7 149/67 (94) 01/19/24 19:30 0 Exam Gen: 58-year-old female in no apparent distress Skin: Warm, dry, normal color and texture, no rash. HEENT: Normocephalic atraumatic, mucous membranes moist and pink. Neck: Cervical and supraclavicular nodes normal without enlargement, trachea is midline, thyroid gland is normal without masses. Pulmonary: Clear to auscultation and percussion bilaterally. Cardiac: Regular rate and rhythm. No murmur Abdomen: Soft, nontender, nondistended, bowel sounds present all 4 quadrants, no guarding, no rigidity, no organomegaly. Extremities: No cyanosis, clubbing, no edema Neuro: Cranial nerves II through XII grossly intact, normal affect and speech, no focal motor deficits. Labs/Xrays ORDERING PHYSICIAN: HANSEL CARRERO MD PROCEDURE(s): CXRP - CHEST PORTABLE REASON: S/P BRONCHOSCOPY ORDER NUMBER(s): [id number], ACCESSION NUMBER(s): [id number] CHEST RADIOGRAPH Indication:S/P BRONCHOSCOPY Technique: Single frontal view of the chest was obtained Comparison: XY CHEST PORTABLE on DOS: 01/19/24, XY CHEST PORTABLE on DOS: 01/19/24 Findings/ IMPRESSION: Endotracheal tube projects 4.2 cm superior to the toño. Enteric tube projecting in the stomach. Right lower lung zone opacification concerning for pleural effusion versus atelectasis versus pneumonia. No pneumothorax. RING PHYSICIAN: HANSEL CARRERO MD PROCEDURE(s): CAPIV - CT CHEST/AB/PL W CON- IV ONLY REASON: found down ams, intubated ORDER NUMBER(s): [id number], ACCESSION NUMBER(s): [id number] Exam: CT CT CHEST/AB/PL W CON- IV ONLY History: found down ams, intubated Comparison Study: None available at time of dictation. Technique: Multidetector spiral CT of the chest, abdomen and pelvis was performed from lower neck to pubic symphysis. Intravenous contrast was admin istered during this examination. Portal venous imaging was obtained. Axial, coronal and sagittal multiplanar reformats were performed by the technologist on a separate workstation. Radiation Dose : 1. Chest/Abdomen/Pelvis: CTDIvol 19 mGy, DLP 1391 mGy*cm. Findings: Endotracheal tube with tip terminating superior to the level of the clavicles. Recommend advancing 5 cm and obtaining follow-up radiographs. Enteric tube terminating within the stomach. Right groin CVC with tip terminating in the external iliac vein. Lower neck: Within normal limits Lungs: Right lower lobe consolidation concerning for atelectasis. Heart/Vascular Structures: Mild cardiomegaly. Mild calcification of the coronary vessels. There is rightward deviation of the mediastinum. Lymph Nodes: No adenopathy Pleura: Within normal limits Liver: The liver is normal in size. No focal lesions. Normal hepatic vascular enhancement. Gallbladder and Biliary Tree: Unremarkable Spleen: Unremarkable Pancreas: The pancreas is normal in appearance without focal lesions or abnormal enhancement. Adrenal Glands: Unremarkable Kidneys: Kidneys demonstrate normal symmetric enhancement without focal lesions, calculi or hydronephrosis. Subcentimeter cystic lesion in the right kidney. Bladder: Alberts catheter within urinary bladder. Bowel: The stomach is grossly normal in appearance. Small bowel and colon are normal in caliber and distribution. The appendix is not visualized; however, no secondary findings of acute appendicitis identified. Fatty infiltration of the cecum. Ascites: Absent Lymphadenopathy: No mesenteric, retroperitoneal or periportal lymphadenopathy. Abdominal Wall and Mesentery: Unremarkable. Vasculature: The visualized abdominal aorta is normal in size and caliber. Abdominal and pelvic vessels demonstrate normal enhancement. Pelvic Organs: Unremarkable Musculoskeletal: No aggressive focal bony lesions, acute fractures or dislocation. IMPRESSION: Endotracheal tube with tip terminating superior to the level of the clavicles. Recommend advancing 5 cm and obtaining follow-up radiographs. Right lower lobe consolidation with rightward deviation of the mediastinum. This may represent a large atelectasis with right lower lobe collapse versus possible mucous plug. A superimposed infectious process is not completely excluded. Fatty infiltration of the cecum which is nonspecific. RING PHYSICIAN: HANSEL CARRERO MD PROCEDURE(s): HWOCT - HEAD WITHOUT CONTRAST REASON: ams, intubated ORDER NUMBER(s): [id number], ACCESSION NUMBER(s): [id number] Procedure: CT HEAD WITHOUT CONTRAST Study Date and Requested Time: 01/19/2024 05:14 PM History:ams, intubated Comparison: None Dose: CTDI: 55.48 mGy DLP: 1000.27 mGycm Technique: Multiplanar images obtained through the brain without intravenous contrast. Findings: Mild diffuse brain atrophy. Mild chronic small-vessel ischemic changes. No hemorrhages, masses, mass effect, midline shift, herniation or cytotoxic edema following a large vascular territory. No intra-axial or extra-axial fluid collections. No evidence of hydrocephalus. The basal cisterns are patent. The cerebellar tonsils are in normal position. The cerebellum is unremarkable.Nonspecific partially empty sella. The orbits and globes are unremarkable. Mucoperiosteal thickening of the ethmoid air cells. The remainder of the paranasal sinuses and mastoids are clear. There are no worrisome calvarial lesions. Impression: No evidence of acute intracranial abnormality. Nonspecific partially empty sella. Labs Test 01/20/24 06:35 01/20/24 02:26 01/19/24 20:54 01/19/24 18:15 Range/Units Blood Gas Specimen Type Arterial Blood Gas Sample Site Arterial line Blood Gas Patient Temperature 37.0 Arterial Blood Date Drawn [id number] Arterial Blood pH 7.503 H 7.350-7.450 Arterial Blood Partial Pressure CO2 24.7 L 32.0-45.0 mmHg Arterial Blood Partial Pressure O2 86.7 83.0-108.0 mmHg Arterial Blood HCO3 19.0 L 21.0-28.0 mmol/L Arterial Blood Oxygen Saturation 97.2 94.0-98.0 % Arterial Blood Base Excess -1.9 -2.0-3.0 mmol/L Arterial Blood Oxyhemoglobin 95.5 94.0-98.0 % Arterial Blood Carboxyhemoglobin 0.9 0.5-1.5 % Arterial Blood Methemoglobin 0.8 0.0-1.5 % Elijah Test N/a Blood Gas Total Hemoglobin 17.00 H 12.0-16.0 g/dL Blood Gas Set Respiration Rate 20.0 Blood Gas Modality Vent - ac Blood Gas Spontaneous Rate 20 FiO2 % 30.0 Blood Gas Tidal Volume 450.0 Blood Gas PEEP or CPAP 5.0 White Blood Count 16.3 #H 4.4-10.8 10^3/uL Red Blood Count 4.87 4.0-5.20 10^6/uL Hemoglobin 16.2 12.2-16.2 g/dL Hematocrit 47.0 H 36.0-46.0 % Mean Corpuscular Volume 96.6 80.0-100.0 fL Mean Corpuscular Hemoglobin 33.4 H 28.0-32.0 pg Mean Corpuscular Hemoglobin Concent 34.5 32.0-36.0 g/dL Red Cell Distribution Width 14.0 11.8-14.3 % Platelet Count 219 140-450 10^3/uL Mean Platelet Volume 7.9 6.9-10.8 fL Neutrophils (%) (Auto) 85.3 H 37.0-80.0 % Lymphocytes (%) (Auto) 7.7 L 10.0-50.0 % Monocytes (%) (Auto) 6.6 0.0-12.0 % Eosinophils (%) (Auto) 0.1 0.0-7.0 % Basophils (%) (Auto) 0.3 0.0-2.0 % Neutrophils # (Auto) 13.9 H 1.6-8.6 10 ^3/uL Lymphocytes # (Auto) 1.3 0.4-5.4 10 ^3/uL Monocytes # (Auto) 1.1 0-1.3 10 ^3/uL Eosinophils # (Auto) 0 0-0.8 10 ^3/uL Basophils # (Auto) 0 0-0.2 10 ^3/uL Nucleated Red Blood Cells 0.0 % Sodium Level 144 136-145 mmol/L Potassium Level 3.5 3.5-5.1 mmol/L Chloride Level 110 H 98-107 mmol/L Carbon Dioxide Level 23 20-31 mmol/L Anion Gap 11 5-15 Blood Urea Nitrogen < 5 L 9-23 mg/dL Creatinine 0.73 0.550-1.02 mg/dL Glomerular Filtration Rate Calc 94 >90 mL/min BUN/Creatinine Ratio 6.8 L 10.0-20.0 Serum Glucose 160 H 74-106 mg/dL Calcium Level 9.4 8.7-10.4 mg/dL Total Bilirubin 0.9 0.2-1.0 mg/dL Aspartate Amino Transferase (AST) 11 L 13-40 U/L Alanine Aminotransferase (ALT) 14 7-40 U/L Alkaline Phosphatase 81 46-116 U/L Total Protein 7.1 5.7-8.2 g/dL Albumin 4.4 3.2-4.8 g/dL Troponin I High Sensitivity 15 </=34 ng/L Urine Color Colorless Yellow Urine Clarity Clear Clear Urine pH 6.5 5.0-9.0 Urine Specific G[place] 1.031 1.001-1.035 Urine Protein Negative Negative Urine Ketones Negative Negative Urine Blood Negative Negative /uL Urine Nitrite Negative Negative Urine Bilirubin Negative Negative Urine Urobilinogen Normal Negative mg/dL Urine Leukocyte Esterase Negative Negative /uL Urine RBC 1 0 - 4 /hpf Urine WBC <1 0 - 5 /hpf Urine Squamous Epithelial Cells Few <5 /hpf Urine Bacteria None seen None Seen /hpf Urine Glucose Normal Normal mg/dL Urine Opiates Screen Neg NEGATIVE Urine Fentanyl Screen Neg NEGATIVE Urine Barbiturates Screen Neg NEGATIVE Urine Phencyclidine Screen Neg NEGATIVE Urine Amphetamines Screen Neg NEGATIVE Urine Benzodiazepines Screen Neg NEGATIVE Urine Cocaine Screen Neg NEGATIVE Urine Cannabinoids Screen Neg NEGATIVE Test 01/19/24 17:54 Range/Units Lactic Acid Level 1.2 0.4-2.0 mmol/L B-Type Natriuretic Peptide 25.66 0-100 pg/mL Assessment/Plan Assessment/Plan Assessment Acute hypoxic respiratory failure right collapsed lung, status post bronchoscopy Hypokalemia Possible pneumonia Plan Admit the patient to ICU to the hospitalist Rocephin/azithromycin Resume home medications Continue treatment per orders Total critical care time is 50 minutes excluding procedures performed. Plan discussed with: Other My Orders Orders - CHAMP HANEY AGACNP Procedure Category Date Status Time Albuterol Medneb PHA 01/19/24 In Process (Ventolin Medneb) 22:00 Ipratropium Medneb PHA 01/19/24 In Process (Atrovent Medneb) 22:00 Admit ADMIT 01/19/24 Transmitted 21:51 Ondansetron Hcl PHA 01/19/24 In Process (Zofran) 22:00 Enoxaparin Sodium PHA 01/20/24 In Process (Lovenox) 10:00 Condition: Critical PAZ 01/19/24 In Process 21:51 Acetaminophen Tablet PHA 01/19/24 In Process (Tylenol Tablet) 22:00 Maintain Bed Rest PAZ 01/19/24 In Process 21:51 Sequential PAZ 01/19/24 In Process Compression Device Nitroglycerin PHA 01/19/24 In Process Sublingual (Ntrostat 22:00 Morphine Sulfate PHA 01/19/24 In Process Injection 22:00 Stat Ekg For Chest PAZ 01/19/24 In Process Pain 21:51 Notify Md Of Changes PAZ 01/19/24 In Process From Base 21:51 Check Writer Salesperson For [facility] 01/19/24 In Process 24 Hours 21:51 Emergency Dysrhythmia PAZ 01/19/24 In Process Protocol 21:51 Rhythm Strips Once PAZ 01/19/24 In Process Every Shift 21:51 Oxygen By Nasal RT 01/19/24 Transmitted Cannula 21:51 D5w/Sod Chl 0.45% PHA 01/19/24 In Process (D5w 1/2ns) 22:00 * Wound Consult CONS 01/20/24 Transmitted * Dietary Consult CONS 01/20/24 Transmitted 06:25 Date of Service: Jan 19, 2024 Billing Provider: CHAMP HANEY Common Visit Codes: [id number] CARE 30-74 MIN CHAMP HANEY Jan 20, 2024 06:57
[2024-01-20] MEDS: cefTRIAXone 1GM/50ML D5W 50 ML IV SCH (09:57)
[2024-01-20] MEDS: AZITHROMYCIN 500MG/ 250ML 250 ML IV SCH (09:58)
[2024-01-20] MEDS: ENOXAPARIN SOD 40 MG/0.4 ML SYRINGE SC SCH (10:00)
--- NOTE | 2024-01-20 10:04 | DVHNC2 ---
Arterial Puncture Indication: Assess ventilatory status, Assess acid-base status Procedure: Sterile Preparation, Arterial Punct Obtained Location: Right Femoral Informed consent obtained: Yes Risks/benefits/alt described: Yes Date of Service: Jan 19, 2024 Billing Provider: HANSEL CARREOR MD Common Visit Codes: PROCEDURE ONLY RAMOS CLANCY RESIDENT Jan 20, 2024 10:04
--- NOTE | 2024-01-20 11:12 | ECG ---
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
[2024-01-20 12:19] LABS: Phosphorus 2.9 mg/dL (2.4-5.1)
[2024-01-20] MEDS: POTASSIUM CHL 20MEQ/100ML 100 ML IV ONE (14:24)
--- NOTE | 2024-01-20 14:55 | DVHPN2 ---
Subjective Patient intubated and chemically sedated Reviewed: Care Plan, H&P, Labs, Medications Changes from previous H/P or p: No Changes General: Per HPI Objective Vitals Vital Signs Date Time Temp Pulse Resp B/P (MAP) Pulse Ox O2 Delivery O2 Flow Rate FiO2 01/20/24 14:14 73 155/68 01/20/24 14:00 30 01/20/24 14:00 16 97 Mechanical Ventilator+ 01/20/24 06:45 99.3 99.3 01/19/24 19:30 0 Intake/Output Intake and Output 01/20/24 07:00 Intake Total 1631.6 ml Output Total 2600 ml Balance -968.4 ml Intake IV Total 1631.6 ml Output Urine Total 2600 ml # Bowel Movements 1 General Appearance: moderate distress HEENT: Atraumatic, PERRLA Lungs: Clear to auscultation, Normal air movement, Other (Mechanical ventilation) Cardiovascular: Normal S1, Normal S2 Abdomen: Normal bowel sounds, No tenderness, No hepatospenomegaly Genitourinary: No Apparent Abnormalities (Alberts catheterization) Musculoskeletal: Other (No motor removed) Neuro: Other (Unable to assess) Psych/Mental Status: Other (Unable to assess) Medications Current Medications Medications Dose Ordered Sig/Zenon Route Start Time Stop Time Status Last Admin Dose Admin Propofol 100 ml @ 2.7 mls/hr Q24H IV 01/19/24 16:45 01/20/24 13:51 16.2 MLS/HR Nicardipine HCl 250 ml @ 50 mls/hr Q5H IV 01/19/24 18:45 01/20/24 14:14 125 MLS/HR Norepinephrine Bitartrate 250 ml @ 3.75 mls/hr Q24H IV 01/19/24 19:45 01/19/24 19:11 3.75 MLS/HR Ondansetron HCl 4 mg Q4HP PRN IV 01/19/24 22:00 Enoxaparin Sodium 40 mg DAILY SC 01/20/24 10:00 01/20/24 10:00 40 MG Acetaminophen 650 mg Q6HP PRN PO 01/19/24 22:00 Nitroglycerin 0.4 mg Q5MINP PRN SL 01/19/24 22:00 Morphine Sulfate 2 mg Q30M PRN IV 01/19/24 22:00 Dextrose/Sodium Chloride 1,000 ml @ 65 mls/hr [id number] IV 01/19/24 22:00 01/20/24 14:24 65 MLS/HR Ceftriaxone Sodium 50 ml @ 100 mls/hr DAILY@09 IV 01/20/24 09:00 01/20/24 09:57 100 MLS/HR Azithromycin 250 ml @ 125 mls/hr DAILY IV 01/20/24 10:00 01/20/24 09:58 125 MLS/HR Albuterol 2.5 mg Q6HR NEB 01/20/24 18:00 Ipratropium [place] 0.5 mg Q6HR NEB 01/20/24 18:00 Acetylcysteine 100 mg Q6HR NEB 01/20/24 18:00 01/21/24 12:01 Pantoprazole Sodium 40 mg DAILY IV 01/21/24 10:00 Laboratory Results Laboratory Tests 01/20/24 02:26 Chemistry Test 01/19/24 17:54 01/20/24 02:26 Albumin 4.4 g/dL (3.2-4.8) 4.4 g/dL (3.2-4.8) Calcium Level 10.2 mg/dL (8.7-10.4) 9.4 mg/dL (8.7-10.4) Total Protein 7.3 g/dL (5.7-8.2) 7.1 g/dL (5.7-8.2) Magnesium Level 2.0 mg/dL (1.6-2.6) Phosphorus Level 2.9 mg/dL (2.4-5.1) Cardiac Markers Test 01/19/24 17:54 B-Type Natriuretic Peptide 25.66 pg/mL (0-100) LFT Test 01/19/24 17:54 01/20/24 02:26 Alanine Aminotransferase (ALT) 17 U/L (7-40) 14 U/L (7-40) Alkaline Phosphatase 80 U/L (46-116) 81 U/L (46-116) Aspartate Amino Transferase (AST) 14 U/L (13-40) 11 U/L (13-40) L Total Bilirubin 1.1 mg/dL (0.2-1.0) H 0.9 mg/dL (0.2-1.0) Urinalysis Test 01/19/24 18:15 Urine Color Colorless (Yellow) Urine Clarity Clear (Clear) Urine pH 6.5 (5.0-9.0) Urine Specific [place] 1.031 (1.001-1.035) Urine Protein Negative (Negative) Urine Ketones Negative (Negative) Urine Blood Negative /uL (Negative) Urine Nitrite Negative (Negative) Urine Bilirubin Negative (Negative) Urine Urobilinogen Normal mg/dL (Negative) Urine Leukocyte Esterase Negative /uL (Negative) Urine RBC 1 /hpf (0 - 4) Urine WBC <1 /hpf (0 - 5) Urine Squamous Epithelial Cells Few /hpf (<5) Urine Bacteria None seen /hpf (None Seen) Urine Glucose Normal mg/dL (Normal) Blood Gas Results Test 01/19/24 18:12 01/20/24 00:34 01/20/24 06:35 Arterial Blood pH 7.499 (7.350-7.450) 7.465 (7.350-7.450) 7.503 (7.350-7.450) FiO2 % 100.0 80.0 30.0 Microbiology Microbiology Date/Time Source Procedure Growth Status 01/19/24 20:48 Bronchial Washings Gram Stain - Final Resulted 01/19/24 20:48 Bronchial Washings Respiratory Culture - Preliminary Resulted Labs and/or images reviewed: Labs reviewed by me, Image(s) reviewed by me Assessment/Plan Assessment/Plan LImpression: -acute hypoxic respiratory failure on mechanical ventilation -probable aspiration pneumonia -breakthrough seizure activity -history of anxiety disorder, probable other underlying psychosis, not otherwise specified -obesity -leukocytosis, probable sepsis -right upper bronchus occlusion secondary to mucus plugging -accelerated hypertension Plan: -continue mechanical ventilation -bronchodilators q.6 hours, add Mucomyst q.6 hours -continue current sedation with propofol -continue nicardipine drip. Add lisinopril and amlodipine, home doses -PUD, DVT prophylaxis -repeat labs in a.m. -pulmonology consultation on board. Possible spontaneous breathing trial in a.m. Critical care time spent with patient discussing and formulating plan of care: 90 minutes. This does not include time spent performing procedures. This medical document was created using an electronic medical record system with [employer] dictation system. Although this document has been carefully reviewed, there may still be some phonetic and typographical errors. These areas are purely typographical due to imperfections of the software programs, and do not reflect any compromise in the patient's medical care. Plan discussed with: Patient, Daughter, Other (RN, mother) My Orders Orders - PIA HEATH NP Procedure Category Date Status Time Albuterol Medneb PHA 01/20/24 In Process (Ventolin Medneb) 18:00 Ipratropium Medneb PHA 01/20/24 In Process (Atrovent Medneb) 18:00 Acetylcysteine PHA 01/20/24 In Process Inhalation 10% 18:00 Blood Culture DAVID 01/20/24 Logged 14:16 Pantoprazole PHA 01/21/24 In Process (Protonix) 10:00 Chest Xray 1 View XY 01/20/24 Taken 14:16 Basic Metabolic Panel LAB 01/21/24 Verified 04:00 Chest Portable XY 01/21/24 Logged 04:00 Abg W/ Co-Ox RT 01/21/24 Logged 04:00 Complete Blood Count LAB 01/21/24 Verified 04:00 Lisinopril Tablet PHA 01/20/24 Logged (Zestril Tablet) 14:45 Amlodipine Tablet PHA 01/21/24 Logged (Norvasc Tablet) 10:00 Date of Service: Jan 20, 2024 Billing Provider: PIA HEATH NP Common Visit Codes: 69309-[id number] CARE 30-74 MIN, 33553-HOHTWWWE CARE-EACH +30MIN PIA HEATH NP Jan 20, 2024 14:55
--- NOTE | 2024-01-20 15:43 | DVH ---
CHEST RADIOGRAPH Indication:aspiration pna Technique: Single frontal view of the chest was obtained COMPARISON: XY CHEST PORTABLE on DOS: 01/19/24, XY CHEST PORTABLE on DOS: 01/19/24, XY CHEST PORTABLE on DOS: 01/19/24 FINDINGS: Lines and Tubes: Endotracheal tube and enteric catheter in satisfactory position. Lungs: Pulmonary vascular congestion. Pleura: No effusion. No pneumothorax. Cardiomediastinal contours: Unremarkable Bones: Unremarkable IMPRESSION: Lines and tubes in satisfactory position. No significant interval change.
[2024-01-20] MEDS: LISINOPRIL 20 MG TAB PO SCH (15:56)
--- NOTE | 2024-01-20 18:30 | DVHPN2 ---
Progress Note - Dictate Date Seen: Jan 20, 2024 Medical Necessity Reason Pt with a Central, PICC or Fol: No Subjective Patient seen and examined at bedside. Sedated, intubated on mechanical ventilator. Overnight events reviewed. vital signs Vital Sign Date Time Temp Pulse Resp B/P (MAP) Pulse Ox O2 Delivery O2 Flow Rate FiO2 01/20/24 16:12 80 16 146/66 (92) 98 30 01/20/24 14:00 Mechanical Ventilator+ 01/20/24 08:45 99.0 99.0 01/19/24 19:30 0 Total Intake and Output 01/19/24 01/19/24 01/20/24 15:00 23:00 07:00 Intake Total 530.0 ml 1232.8 ml Output Total 2600 ml Balance 530.0 ml -1367.2 ml medications Current Medications Medications Dose Ordered Sig/Zenon Route Start Time Stop Time Status Last Admin Dose Admin Propofol 100 ml @ 2.7 mls/hr Q24H IV 01/19/24 16:45 01/20/24 13:51 16.2 MLS/HR Nicardipine HCl 250 ml @ 50 mls/hr Q5H IV 01/19/24 18:45 01/20/24 14:14 125 MLS/HR Norepinephrine Bitartrate 250 ml @ 3.75 mls/hr Q24H IV 01/19/24 19:45 01/19/24 19:11 3.75 MLS/HR Ondansetron HCl 4 mg Q4HP PRN IV 01/19/24 22:00 Enoxaparin Sodium 40 mg DAILY SC 01/20/24 10:00 01/20/24 10:00 40 MG Acetaminophen 650 mg Q6HP PRN PO 01/19/24 22:00 Nitroglycerin 0.4 mg Q5MINP PRN SL 01/19/24 22:00 Morphine Sulfate 2 mg Q30M PRN IV 01/19/24 22:00 Dextrose/Sodium Chloride 1,000 ml @ 65 mls/hr [id number] IV 01/19/24 22:00 01/20/24 14:24 65 MLS/HR Ceftriaxone Sodium 50 ml @ 100 mls/hr DAILY@09 IV 01/20/24 09:00 01/20/24 09:57 100 MLS/HR Azithromycin 250 ml @ 125 mls/hr DAILY IV 01/20/24 10:00 01/20/24 09:58 125 MLS/HR Albuterol 2.5 mg Q6HR NEB 01/20/24 18:00 Ipratropium [place] 0.5 mg Q6HR NEB 01/20/24 18:00 Acetylcysteine 100 mg Q6HR NEB 01/20/24 18:00 01/21/24 12:01 Pantoprazole Sodium 40 mg DAILY IV 01/21/24 10:00 Lisinopril 40 mg DAILY PO 01/20/24 14:45 01/20/24 15:56 40 MG Amlodipine Besylate 10 mg DAILY PO 01/21/24 10:00 objective Gen.: Patient lying in bed in medical ICU. Sedated, intubated on mechanical ventilator. Head: Normocephalic, atraumatic. Eyes: PERRLA. Ears: Normal external anatomy. Throat: Endotracheal tube and orogastric tube in place. Neck: Supple, trachea midline. Chest: Transmitted breath sounds bilaterally. Decreased air entry bilaterally. No wheezing. Bibasilar crackles. Cardiovascular: Positive S1, positive S2. Regular rate and rhythm. Abdomen: Positive bowel sounds in all 4 quadrants. Soft, nontender, nondistended. : Alberts in place. Normal external genitalia. Rectal: Deferred. Skin: Warm, dry. Intact. Extremities: 2+ radial pulses bilaterally. No lower extremity edema. Neuro: Sedated. laboratory and microbiology Laboratory Tests 01/20/24 02:26 Test 01/20/24 02:26 Range/Units Serum Glucose 160 H 74-106 mg/dL Assessment/Plan Impression: Acute hypoxic respiratory failure On mechanical ventilator Aspiration pneumonia Acute metabolic encephalopathy Mucus plugging causing collapse of the right lung Atelectasis Obesity, BMI 31.1 Hypokalemia Events: Remains on vent support On assist control with respiratory rate of 16, tidal volume 450, PEEP of 5, FiO2 at 30% Titrate FIO2 to keep O2 saturation above 92%. ABG reviewed, shows alkalemia RR decreased to 16 CXR reviewed, demonstrates improved aeration of right upper/mid lung zones. Increase PEEP to 8 to improve aeration of RLL. Sedated with Propofol Nicardipine drip for increased blood pressure. Check mag, phos Monitor renal function Labs and imaging reviewed. Rest of plan as noted below. Plan: s/p intubation on mechanical ventilator Head CT: No acute intracranial abnormality. CXR image and report reviewed. CT chest report and images reviewed: Rightward deviation of the mediastinum. Atelectasis with right lower lobe. Possible mucus plugging. Can not rule out superimposed pneumonia. ABG reviewed. Alkalemia due to respiratory alkalosis. On assist control with respiratory rate of 16, tidal volume 450, PEEP of 5, FiO2 at 30% Titrate FIO2 to keep O2 saturation above 92%. VAP bundle Daily ABG and CXR while intubated. Sedate for ventilatory synchrony - on Propofol Pressors as necessary for hemodynamic support. Titrate to keep MAP above 65 mmHg/SBP above 90 mmHg. Continue broad spectrum antibiotics. F/u cultures. F/u RML BAL cultures Monitor renal function due to Acute kidney injury. Monitor electrolytes. Supplement as necessary. Nutritional support. Accucheks, ISS. On nicardipine drip for BP control GI/DVT prophylaxis. Updated family at bedside regarding management plan. Consent obtained for bronchoscopy. With full knowledge of risks and benefits, mother agreed for bronchoscopy with Bronchoalveolar lavage. Condition: Critical Prognosis: Poor given multiple comorbidities. Rest of plan per hospitalist and other consultants. A total of 35 minutes of critical care time was spent reviewing the patient record, examining the patient, making a diagnostic and therapeutic plan, discussing this plan with the medical personnel, following up on diagnostic studies and following the patient for clinical stability excluding any and all procedures. At least 50% of this time was spent in direct, [id number] contact. Thank you Dr. Ortega for allowing me to participate in this patient's care. Further recommendations will depend on patient's clinical course. Please do not hesitate to contact me if you have any questions or concerns. This medical document was created using an electronic medical record system with [employer] dictation system. Although this document has been carefully reviewed, there may still be some phonetic and typographical errors. These areas are purely typographical due to imperfections of the software programs, and do not reflect any compromise in the patient's medical care. Dietary Evaluation Review Comments: 1) If GI is accessible consider Jevity 1.2 @ 40 ml/hr x 24 hrs goal as tolerated 2) If pt remains NPO >7 days consider PN support to meet at least 75% or estimated needs 3) Advance pt diet when medically feasible 4) Continue current plan of care Expected Outcomes/Goals: 1) Pt to receive nutrition support within 7 days of NPO status 2) Pt diet to advance 3) F/U in 2-3 days Plan discussed with: Other (MARTÍN Adams) CJ FOY MD Jan 20, 2024 18:30
[2024-01-20] MEDS: ACETYLCYSTEINE 10 %(100MG/ML) SOL 4ML NEB SCH (19:18)
[2024-01-20] MEDS: ALBUTEROL SULF 2.5 MG/0.5ML(0.5%) NEB SOLN NEB SCH (19:18)
[2024-01-20] MEDS: IPRATROPIUM BROM 0.5 MG/2.5ML INH SOL NEB SCH (19:18)
--- NOTE | 2024-01-20 21:28 | DVHINCON2 ---
Date of service: Jan 20, 2024 Referring Physician Kiko Reason for Consultation New onset seizure activity History of Present Illness Ms. Samaniego is a 58 years old right-handed female with a history of hypertension, anxiety, the patient was admitted on 01/17/2024 to the [facility] with a chief company of altered mental state, seizure activity. At this time, she is sedated, intubated, the history is obtained from his daughters, and the nurse, I have also reviewed the chart In the morning on 01/19/24, family found her on the floor by her bed, nonresponsive but having shaking movement as if somebody is seizing, his nose was twisted to one side, she woke up after EMS came over, confused, and she was repeating want to her son's name for a few times. In the emergency room, the patient was still mentally altered, and she was intubated. No more seizure activity in the hospital Per family, the patient has had no similar activity of seizure disorder, she was no history of traumatic brain injury, intracranial infection, stroke, this no family history of seizure disorder Her CT angiogram showed a small brain aneurysm She spiked temperature in the hospital UDS, 01/19/2024: Negative Urinalysis, 01/19/2024: Unremarkable ABG, 01/19/2024: Respiratory alkalosis WBC/HB/PLT/MCV, 01/20/2024: 16.3/16.2/219/96.6 CMP, 01/20/2024: Normal Chest ray, 01/19/24: Endotracheal tube projects 5.7 cm superior to the toño. Enteric tube projects terminating within the stomach. Opacification of the right lower lung zone concerning for atelectasis with superimposed infection not excluded. There is mild rightward deviation of the mediastinum. CT head, 01/19/2024: No evidence of acute intracranial abnormality. Nonspecific partially empty sella CTA head, neck, 01/19/2024: 1. No large vessel occlusion or high-grade stenosis in the arteries of the head and neck. 2. 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 3. Large amount of fluid in the oropharynx and nasopharynx. Fluid is seen in the dependent portion of trachea. Pulmonary opacities in the right upper lobe and asymmetric reduction in right lung volume. Aspiration pneumonia can not be ruled out. Recommend suctioning of the fluid in oropharynx and trachea Past Medical History Hypertension, anxiety Past Surgical History Leg fracture repair Family History: Patient reports no known family medical history. Family History Cancer Social History She smokes, but no history of drug or alcohol abuse Allergies: Coded Allergies: NO KNOWN ALLERGIES (Unverified , 11/04/12) Home Meds Reported Medications Baclofen (Baclofen) 10 Mg Tab, #60 01/22/15 Buspirone Hcl (Buspirone Hcl) 10 Mg Tab, #60 01/22/15 Hydrochlorothiazide W/Triamter (Triamterene/Hydrochloroth) 1 Cap Cap, #30 01/22/15 [Estravan] No Conflict Check 11/04/12 Current Medications Current Medications Medications (Trade) Dose Ordered Sig/Zenon Route PRN Reason Start Time Stop Time Status Last Admin Potassium Chloride 100 ml @ 50 mls/hr Q2H IV 01/19/24 22:00 01/20/24 01:59 DC 01/20/24 01:14 Albuterol (Ventolin Medneb) 2.5 mg Q6HPRN PRN NEB SHORTNESS OF BREATH 01/19/24 22:00 01/20/24 14:21 DC Ipratropium [place] (Atrovent Medneb) 0.5 mg Q6HPRN PRN NEB SHORTNESS OF BREATH 01/19/24 22:00 01/20/24 14:21 DC Ondansetron HCl (Zofran) 4 mg Q4HP PRN IV NAUSEA / VOMITING 01/19/24 22:00 Enoxaparin Sodium (Lovenox) 40 mg DAILY SC 01/20/24 10:00 01/20/24 10:00 Acetaminophen (Tylenol Tablet) 650 mg Q6HP PRN PO PAIN SCALE 1-3 OR TEMP>100.4 01/19/24 22:00 Nitroglycerin (Ntrostat Sublingual) 0.4 mg Q5MINP PRN SL FOR CHEST PAIN 01/19/24 22:00 Morphine Sulfate 2 mg Q30M PRN IV FOR CHEST PAIN 01/19/24 22:00 Dextrose/Sodium Chloride 1,000 ml @ 65 mls/hr [id number] IV 01/19/24 22:00 01/20/24 14:24 Ceftriaxone Sodium 50 ml @ 100 mls/hr DAILY@09 IV 01/20/24 09:00 01/20/24 09:57 Azithromycin 250 ml @ 125 mls/hr DAILY IV 01/20/24 10:00 01/20/24 09:58 Albuterol (Ventolin Medneb) 2.5 mg Q6HR NEB 01/20/24 18:00 01/20/24 19:18 Ipratropium [place] (Atrovent Medneb) 0.5 mg Q6HR NEB 01/20/24 18:00 01/20/24 19:18 Acetylcysteine (Mucomyst Inahalation 10%) 100 mg Q6HR NEB 01/20/24 18:00 01/21/24 12:01 01/20/24 19:18 Pantoprazole Sodium (Protonix) 40 mg DAILY IV 01/21/24 10:00 Lisinopril (Zestril Tablet) 40 mg DAILY PO 01/20/24 14:45 01/20/24 15:56 Amlodipine Besylate (Norvasc Tablet) 10 mg DAILY PO 01/21/24 10:00 Review of Systems As above, the other systems are negative Vital Signs Vital Signs Date Time Temp Pulse Resp B/P (MAP) Pulse Ox O2 Delivery O2 Flow Rate FiO2 01/20/24 20:30 102 18 176/93 (120) 100 30 01/20/24 19:19 Mechanical Ventilator 01/20/24 18:30 99.5 99.5 01/19/24 19:30 0 Physical Exam The patient is well-nourished and well-developed with no distress. The patient is intubated HEENT: Normocephalic, neck supple, no carotid bruits Lungs: Clear to auscultation Cardiovascular: Regular rate and region, S1, S2, no murmurs Abdomen: Soft, nontender, normal bowel sounds MENTAL STATUS: Possibly responsive to light painful stimuli CRANIAL NERVES: Pupils are equal, round and reactive.There are corneal reflexes and doll's eyes phenomenon. No signs of facial weakness. There are gagging or coughing reflexes SENSATION: Possibly responses to pain stimuli. MOTOR: Normal tone in the upper and lower extremity. Normal muscle bulk. No fasciculations. No spontaneous movement. REFLEXES: Deep tendon reflexes are symmetrical. No pathological reflexes. CEREBELLAR/COORDINATION: Deferred GAIT/STATION: deferred. Labs/Diagnostic Data Labs Test 01/20/24 06:35 01/20/24 02:26 01/19/24 20:54 01/19/24 18:15 Range/Units Blood Gas Specimen Type Arterial Blood Gas Sample Site Arterial line Blood Gas Patient Temperature 37.0 Arterial Blood Date Drawn [id number] Arterial Blood pH 7.503 H 7.350-7.450 Arterial Blood Partial Pressure CO2 24.7 L 32.0-45.0 mmHg Arterial Blood Partial Pressure O2 86.7 83.0-108.0 mmHg Arterial Blood HCO3 19.0 L 21.0-28.0 mmol/L Arterial Blood Oxygen Saturation 97.2 94.0-98.0 % Arterial Blood Base Excess -1.9 -2.0-3.0 mmol/L Arterial Blood Oxyhemoglobin 95.5 94.0-98.0 % Arterial Blood Carboxyhemoglobin 0.9 0.5-1.5 % Arterial Blood Methemoglobin 0.8 0.0-1.5 % Elijah Test N/a Blood Gas Total Hemoglobin 17.00 H 12.0-16.0 g/dL Blood Gas Set Respiration Rate 20.0 Blood Gas Modality Vent - ac Blood Gas Spontaneous Rate 20 FiO2 % 30.0 Blood Gas Tidal Volume 450.0 Blood Gas PEEP or CPAP 5.0 White Blood Count 16.3 #H 4.4-10.8 10^3/uL Red Blood Count 4.87 4.0-5.20 10^6/uL Hemoglobin 16.2 12.2-16.2 g/dL Hematocrit 47.0 H 36.0-46.0 % Mean Corpuscular Volume 96.6 80.0-100.0 fL Mean Corpuscular Hemoglobin 33.4 H 28.0-32.0 pg Mean Corpuscular Hemoglobin Concent 34.5 32.0-36.0 g/dL Red Cell Distribution Width 14.0 11.8-14.3 % Platelet Count 219 140-450 10^3/uL Mean Platelet Volume 7.9 6.9-10.8 fL Neutrophils (%) (Auto) 85.3 H 37.0-80.0 % Lymphocytes (%) (Auto) 7.7 L 10.0-50.0 % Monocytes (%) (Auto) 6.6 0.0-12.0 % Eosinophils (%) (Auto) 0.1 0.0-7.0 % Basophils (%) (Auto) 0.3 0.0-2.0 % Neutrophils # (Auto) 13.9 H 1.6-8.6 10 ^3/uL Lymphocytes # (Auto) 1.3 0.4-5.4 10 ^3/uL Monocytes # (Auto) 1.1 0-1.3 10 ^3/uL Eosinophils # (Auto) 0 0-0.8 10 ^3/uL Basophils # (Auto) 0 0-0.2 10 ^3/uL Nucleated Red Blood Cells 0.0 % Sodium Level 144 136-145 mmol/L Potassium Level 3.5 3.5-5.1 mmol/L Chloride Level 110 H 98-107 mmol/L Carbon Dioxide Level 23 20-31 mmol/L Anion Gap 11 5-15 Blood Urea Nitrogen < 5 L 9-23 mg/dL Creatinine 0.73 0.550-1.02 mg/dL Glomerular Filtration Rate Calc 94 >90 mL/min BUN/Creatinine Ratio 6.8 L 10.0-20.0 Serum Glucose 160 H 74-106 mg/dL Calcium Level 9.4 8.7-10.4 mg/dL Phosphorus Level 2.9 2.4-5.1 mg/dL Magnesium Level 2.0 1.6-2.6 mg/dL Total Bilirubin 0.9 0.2-1.0 mg/dL Aspartate Amino Transferase (AST) 11 L 13-40 U/L Alanine Aminotransferase (ALT) 14 7-40 U/L Alkaline Phosphatase 81 46-116 U/L Total Protein 7.1 5.7-8.2 g/dL Albumin 4.4 3.2-4.8 g/dL Troponin I High Sensitivity 15 </=34 ng/L Urine Color Colorless Yellow Urine Clarity Clear Clear Urine pH 6.5 5.0-9.0 Urine Specific [place] 1.031 1.001-1.035 Urine Protein Negative Negative Urine Ketones Negative Negative Urine Blood Negative Negative /uL Urine Nitrite Negative Negative Urine Bilirubin Negative Negative Urine Urobilinogen Normal Negative mg/dL Urine Leukocyte Esterase Negative Negative /uL Urine RBC 1 0 - 4 /hpf Urine WBC <1 0 - 5 /hpf Urine Squamous Epithelial Cells Few <5 /hpf Urine Bacteria None seen None Seen /hpf Urine Glucose Normal Normal mg/dL Urine Opiates Screen Neg NEGATIVE Urine Fentanyl Screen Neg NEGATIVE Urine Barbiturates Screen Neg NEGATIVE Urine Phencyclidine Screen Neg NEGATIVE Urine Amphetamines Screen Neg NEGATIVE Urine Benzodiazepines Screen Neg NEGATIVE Urine Cocaine Screen Neg NEGATIVE Urine Cannabinoids Screen Neg NEGATIVE Test 01/19/24 17:54 Range/Units Lactic Acid Level 1.2 0.4-2.0 mmol/L B-Type Natriuretic Peptide 25.66 0-100 pg/mL Microbiology Date/Time Source Procedure Growth Status 01/19/24 20:48 Bronchial Washings Gram Stain - Final Resulted 01/19/24 20:48 Bronchial Washings Respiratory Culture - Preliminary Resulted Assessment Grand mal seizure Status epileptics Metabolic encephalopathy Respiratory failure Brain aneurysm Fever/sepsis Plan/Recommendation Monitoring Supportive treatment ICU care EEG MR brain/follow-up CT scan Stabilize vitals Respiratory support/vent management Oxygen IV antibiotics Ativan for seizure breakthrough DVT prophylaxis Consider preventive seizure treatment as indicated More recommendation per clinical course Progress: Guarded Critical care time spent is 45 minutes This medical document was created using an electronic medical record system with [employer] computerized dictation system. Although this document has been carefully reviewed, there may still be some phonetic and typographical errors. These areas are purely typographical due to imperfections of the software programs, and do not reflect any compromise in the patient's medical care. Plan discussed with: Daughter, Other RAPHAEL LR MD Jan 20, 2024 21:28
[2024-01-20] MEDS ORDERED: LORazepam 2MG/ML-1ML VIAL IV PRN (22:15)
[2024-01-21] VITALS (117 sets, daily range): BP systolic 72–195; BP diastolic 37–177; PULSE 69–135; RESP 9–35; TEMP 98.2–99.5; O2SAT 96–100
[2024-01-21] MEDS: fentaNYL Drip 2500mCg/250mlNS 250 ML IV SCH (02:48)
[2024-01-21 04:24] LABS: Basophils # (auto) 0 10 ^3/uL (0-0.2); Basophils % (auto) 0.3 % (0.0-2.0); Eosinophils # (auto) 0.1 10 ^3/uL (0-0.8); Eosinophils % (auto) 0.5 % (0.0-7.0); Hematocrit 47.7 % (36.0-46.0); Lymphocytes # (auto) 2.9 10 ^3/uL (0.4-5.4); Mean Corpuscular Hemoglobin 32.8 pg (28.0-32.0); Mean Corpuscular Hgb Conc. 33.5 g/dL (32.0-36.0); Mean Corpuscular Volume 97.7 fL (80.0-100.0); Monocytes # (auto) 1.3 10 ^3/uL (0-1.3); Monocytes % (auto) 8.9 % (0.0-12.0); Neutrophils # (auto) 9.7 10 ^3/uL (1.6-8.6); Neutrophils % (auto) 69.3 % (37.0-80.0); Nucleated Red Blood Cells % 0.1 %; Platelet Count (auto) 214 10^3/uL (140-450); Red Blood Cells 4.88 10^6/uL (4.0-5.20); Red Cell Distribution Width 14.8 % (11.8-14.3); White Blood Cell 14.1 10^3/uL (4.4-10.8)
[2024-01-21 04:42] LABS: Anion Gap 10 (5-15); Calcium 9.4 mg/dL (8.7-10.4); Carbon Dioxide 23 mmol/L (20-31); Chloride 114 mmol/L (98-107); Potassium 3.2 mmol/L (3.5-5.1); Sodium 147 mmol/L (136-145)
--- NOTE | 2024-01-21 04:44 | DVH ---
CHEST RADIOGRAPH Indication:pna Technique: Single frontal view of the chest was obtained Comparison: XY CHEST XRAY 1 VIEW on DOS: 01/20/24 FINDINGS: Rotation limits evaluation. Lines and Tubes: The endotracheal tube terminates 4.3 cm above the toño. The enteric tube courses b elow the left hemidiaphragm and the tip extends outside the field of view. Lungs: Pulmonary congestion. Pleura: No effusion. No pneumothorax. Cardiomediastinal contours: Unremarkable Bones: No acute osseous abnormality. IMPRESSION: 1. Pulmonary congestion. 2. Stable position of the support lines and tubes.
[2024-01-21 04:48] LABS: Glucose 131 mg/dL (74-106)
[2024-01-21 04:52] LABS: BUN/Creatinine Ratio 6.3 (10.0-20.0); Blood Urea Nitrogen < 5 mg/dL (9-23)
[2024-01-21] MEDS: POTASSIUM CHL 20MEQ/100ML 100 ML IV ONE (06:51)
[2024-01-21 07:40] LABS: Base Excess -1.4 mmol/L (-2.0-3.0)
--- NOTE | 2024-01-21 09:11 | DVHPN2 ---
Subjective Patient intubated and chemically sedated Reviewed: Care Plan, H&P, Labs, Medications Changes from previous H/P or p: No Changes General: Per HPI Objective Vitals Vital Signs Date Time Temp Pulse Resp B/P (MAP) Pulse Ox O2 Delivery O2 Flow Rate FiO2 01/21/24 08:37 130/67 01/21/24 08:30 84 16 99 30 01/21/24 06:45 98.8 209.8 01/21/24 06:01 Mechanical Ventilator+ 01/19/24 19:30 0 Intake/Output Intake and Output 01/21/24 07:00 Intake Total 3112.2 ml Output Total 2350 ml Balance 762.2 ml Intake IV Total 3112.2 ml Output Urine Total 2350 ml # Bowel Movements 2 General Appearance: mild distress HEENT: Atraumatic, PERRLA Lungs: Clear to auscultation, Normal air movement, Other (Mechanical ventilation) Cardiovascular: Normal S1, Normal S2 Abdomen: Normal bowel sounds, No tenderness, No hepatospenomegaly Genitourinary: No Apparent Abnormalities (Alberts catheterization) Musculoskeletal: Other (No motor removed) Neuro: Other (Unable to assess) Psych/Mental Status: Other (Unable to assess) Medications Current Medications Medications Dose Ordered Sig/Zenon Route Start Time Stop Time Status Last Admin Dose Admin Propofol 100 ml @ 2.7 mls/hr Q24H IV 01/19/24 16:45 01/21/24 08:37 21.6 MLS/HR Nicardipine HCl 250 ml @ 50 mls/hr Q5H IV 01/19/24 18:45 01/20/24 14:14 125 MLS/HR Norepinephrine Bitartrate 250 ml @ 3.75 mls/hr Q24H IV 01/19/24 19:45 01/19/24 19:11 3.75 MLS/HR Ondansetron HCl 4 mg Q4HP PRN IV 01/19/24 22:00 Enoxaparin Sodium 40 mg DAILY SC 01/20/24 10:00 01/20/24 10:00 40 MG Acetaminophen 650 mg Q6HP PRN PO 01/19/24 22:00 Nitroglycerin 0.4 mg Q5MINP PRN SL 01/19/24 22:00 Morphine Sulfate 2 mg Q30M PRN IV 01/19/24 22:00 Dextrose/Sodium Chloride 1,000 ml @ 65 mls/hr [id number] IV 01/19/24 22:00 01/20/24 14:24 65 MLS/HR Ceftriaxone Sodium 50 ml @ 100 mls/hr DAILY@09 IV 01/20/24 09:00 01/21/24 08:38 100 MLS/HR Azithromycin 250 ml @ 125 mls/hr DAILY IV 01/20/24 10:00 01/20/24 09:58 125 MLS/HR Albuterol 2.5 mg Q6HR NEB 01/20/24 18:00 01/21/24 06:12 2.5 MG Ipratropium [place] 0.5 mg Q6HR NEB 01/20/24 18:00 01/21/24 06:12 0.5 MG Acetylcysteine 100 mg Q6HR NEB 01/20/24 18:00 01/21/24 12:01 01/21/24 06:12 100 MG Pantoprazole Sodium 40 mg DAILY IV 01/21/24 10:00 Lisinopril 40 mg DAILY PO 01/20/24 14:45 01/20/24 15:56 40 MG Amlodipine Besylate 10 mg DAILY PO 01/21/24 10:00 Lorazepam 1 mg Q5MINP PRN IV 01/20/24 22:15 Fentanyl Citrate 250 ml @ 2.5 mls/hr Q24H IV 01/21/24 00:45 01/21/24 02:48 2.5 MLS/HR Laboratory Results Laboratory Tests 01/21/24 03:59 Chemistry Test 01/21/24 03:59 Calcium Level 9.4 mg/dL (8.7-10.4) Urinalysis Test 01/19/24 18:15 Urine Color Colorless (Yellow) Urine Clarity Clear (Clear) Urine pH 6.5 (5.0-9.0) Urine Specific [place] 1.031 (1.001-1.035) Urine Protein Negative (Negative) Urine Ketones Negative (Negative) Urine Blood Negative /uL (Negative) Urine Nitrite Negative (Negative) Urine Bilirubin Negative (Negative) Urine Urobilinogen Normal mg/dL (Negative) Urine Leukocyte Esterase Negative /uL (Negative) Urine RBC 1 /hpf (0 - 4) Urine WBC <1 /hpf (0 - 5) Urine Squamous Epithelial Cells Few /hpf (<5) Urine Bacteria None seen /hpf (None Seen) Urine Glucose Normal mg/dL (Normal) Blood Gas Results Test 01/21/24 07:30 Arterial Blood pH 7.408 (7.350-7.450) FiO2 % 30.0 Microbiology Microbiology Date/Time Source Procedure Growth Status 01/19/24 20:48 Bronchial Washings Gram Stain - Final Resulted 01/19/24 20:48 Bronchial Washings Respiratory Culture - Preliminary Resulted Labs and/or images reviewed: Labs reviewed by me, Image(s) reviewed by me Assessment/Plan Assessment/Plan LImpression: -acute hypoxic respiratory failure on mechanical ventilation -probable aspiration pneumonia -breakthrough seizure activity -history of anxiety disorder, probable other underlying psychosis, not otherwise specified -obesity -leukocytosis, probable sepsis -right upper bronchus occlusion secondary to mucus plugging -accelerated hypertension Plan: Events: X-ray reviewed. Communicated with pulmonology regarding possible spontaneous breathing trial. Dr. Valdez agrees. Nicardipine drip weaned off. -continue mechanical ventilation -bronchodilators q.6 hours, add Mucomyst q.6 hours -weaned fentanyl and propofol -nicardipine drip as needed to keep systolic blood pressure less than 160 mmHg. Continue amlodipine and lisinopril -PUD, DVT prophylaxis -repeat labs in a.m. -consultations: Pulmonology, neurology Critical care time spent with patient discussing and formulating plan of care: 90 minutes. This does not include time spent performing procedures. This medical document was created using an electronic medical record system with [employer] dictation system. Although this document has been carefully reviewed, there may still be some phonetic and typographical errors. These areas are purely typographical due to imperfections of the software programs, and do not reflect any compromise in the patient's medical care. 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 - PIA HEATH NP Procedure Category Date Status Time Albuterol Medneb PHA 01/20/24 In Process (Ventolin Medneb) 18:00 Ipratropium Medneb PHA 01/20/24 In Process (Atrovent Medneb) 18:00 Acetylcysteine PHA 01/20/24 In Process Inhalation 10% 18:00 Blood Culture DAVID 01/20/24 In Process 14:16 Pantoprazole PHA 01/21/24 In Process (Protonix) 10:00 Chest Xray 1 View XY 01/20/24 Resulted 14:16 Chest Portable XY 01/21/24 Resulted 04:00 Abg W/ Co-Ox RT 01/21/24 Logged 04:00 Lisinopril Tablet PHA 01/20/24 In Process (Zestril Tablet) 14:45 Amlodipine Tablet PHA 01/21/24 In Process (Norvasc Tablet) 10:00 * Neurology Consult CONS 01/20/24 Transmitted 15:31 Mrsa Screen DAVID 01/20/24 In Process 19:15 Cpap/Sed Vacation Med ORDERS 01/21/24 Transmitted Weaning 08:11 Cpap Trial For Am ORDERS 01/21/24 Transmitted 08:11 Date of Service: Jan 21, 2024 Billing Provider: PIA HEATH NP Common Visit Codes: 01505-[id number] CARE 30-74 MIN PIA HEATH NP Jan 21, 2024 09:11
--- NOTE | 2024-01-21 09:18 | DVHPN2 ---
Progress Note - Dictate Date Seen: Jan 21, 2024 Medical Necessity Reason Pt with a Central, PICC or Fol: No Subjective Ms. Samaniego is a 58 years old right-handed female with a history of hypertension, anxiety, the patient was [facility] on 01[facility]17[facility]20[facility] with a chief company of altered mental state, seizure activity. I have seen and examined the patient, have discussed with her nurse and other medical staff. Her mother, daughter, son are in the room with her, they provided more history According to her mother, the patient was had seizures from age [age] to age [age], according to her description, she had grand mal seizure, but there was no symptoms of absence seizure and myoclonus One of her sons had grand mal seizure One of her nephew has seizure disorder There is no family history of brain aneurysm or headache/migraine headache UDS, 01/19/2024: Negative Urinalysis, 01/19/2024: Unremarkable ABG, 01/19/2024: Respiratory alkalosis WBC/HB/PLT/MCV, 01/20/2024: 16.3/16.2/219/96.6 CMP, 01/20/2024: Normal Chest ray, 01/19/24: Endotracheal tube projects 5.7 cm superior to the toño. Enteric tube projects terminating within the stomach. Opacification of the right lower lung zone concerning for atelectasis with superimposed infection not excluded. There is mild rightward deviation of the mediastinum. CXR, 01/21/24: 1. Pulmonary congestion. 2. Stable position of the support lines and tubes CT head, 01/19/2024: No evidence of acute intracranial abnormality. Nonspecific partially empty sella CTA head, neck, 01/19/2024: 1. No large vessel occlusion or high-grade stenosis in the arteries of the head and neck. 2. 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 3. Large amount of fluid in the oropharynx and nasopharynx. Fluid is seen in the dependent portion of trachea. Pulmonary opacities in the right upper lobe and asymmetric reduction in right lung volume. Aspiration pneumonia can not be ruled out. Recommend suctioning of the fluid in oropharynx and trachea vital signs Vital Sign Date Time Temp Pulse Resp B/P (MAP) Pulse Ox O2 Delivery O2 Flow Rate FiO2 01/21/24 08:37 130/67 01/21/24 08:30 84 16 99 30 01/21/24 06:45 98.8 209.8 01/21/24 06:01 Mechanical Ventilator+ 01/19/24 19:30 0 Total Intake and Output 01/20/24 01/20/24 01/21/24 14:59 22:59 06:59 Intake Total 1524.6 ml 1098.2 ml 620.6 ml Output Total 1850 ml 500 ml Balance 1524.6 ml -751.8 ml 120.6 ml medications Current Medications Medications Dose Ordered Sig/Zenon Route Start Time Stop Time Status Last Admin Dose Admin Propofol 100 ml @ 2.7 mls/hr Q24H IV 01/19/24 16:45 01/21/24 08:37 21.6 MLS/HR Nicardipine HCl 250 ml @ 50 mls/hr Q5H IV 01/19/24 18:45 01/20/24 14:14 125 MLS/HR Norepinephrine Bitartrate 250 ml @ 3.75 mls/hr Q24H IV 01/19/24 19:45 01/19/24 19:11 3.75 MLS/HR Ondansetron HCl 4 mg Q4HP PRN IV 01/19/24 22:00 Enoxaparin Sodium 40 mg DAILY SC 01/20/24 10:00 01/20/24 10:00 40 MG Acetaminophen 650 mg Q6HP PRN PO 01/19/24 22:00 Nitroglycerin 0.4 mg Q5MINP PRN SL 01/19/24 22:00 Morphine Sulfate 2 mg Q30M PRN IV 01/19/24 22:00 Dextrose/Sodium Chloride 1,000 ml @ 65 mls/hr [id number] IV 01/19/24 22:00 01/20/24 14:24 65 MLS/HR Ceftriaxone Sodium 50 ml @ 100 mls/hr DAILY@09 IV 01/20/24 09:00 01/21/24 08:38 100 MLS/HR Azithromycin 250 ml @ 125 mls/hr DAILY IV 01/20/24 10:00 01/20/24 09:58 125 MLS/HR Albuterol 2.5 mg Q6HR NEB 01/20/24 18:00 01/21/24 06:12 2.5 MG Ipratropium [place] 0.5 mg Q6HR NEB 01/20/24 18:00 01/21/24 06:12 0.5 MG Acetylcysteine 100 mg Q6HR NEB 01/20/24 18:00 01/21/24 12:01 01/21/24 06:12 100 MG Pantoprazole Sodium 40 mg DAILY IV 01/21/24 10:00 Lisinopril 40 mg DAILY PO 01/20/24 14:45 01/20/24 15:56 40 MG Amlodipine Besylate 10 mg DAILY PO 01/21/24 10:00 Lorazepam 1 mg Q5MINP PRN IV 01/20/24 22:15 Fentanyl Citrate 250 ml @ 2.5 mls/hr Q24H IV 01/21/24 00:45 01/21/24 02:48 2.5 MLS/HR objective The patient is well-nourished and well-developed with no distress. The patient is intubated MENTAL STATUS: Possibly responsive to light painful stimuli CRANIAL NERVES: Pupils are equal, round and reactive.There are corneal reflexes and doll's eyes phenomenon. No signs of facial weakness. There are gagging or coughing reflexes SENSATION: Possibly responses to pain stimuli. MOTOR: Normal tone in the upper and lower extremity. Normal muscle bulk. No fasciculations. No spontaneous movement. REFLEXES: Deep tendon reflexes are symmetrical. No pathological reflexes. CEREBELLAR/COORDINATION: Deferred GAIT/STATION: deferred. laboratory and microbiology Laboratory Tests 01/21/24 03:59 Test 01/21/24 03:59 Range/Units Serum Glucose 131 H 74-106 mg/dL Problem List Grand mal seizure Status epileptics Metabolic encephalopathy Respiratory failure Brain aneurysm Fever/sepsis Assessment/Plan Monitoring Supportive treatment ICU care EEG MRI brain/follow-up CT scan Stabilize vitals Respiratory support/vent management Oxygen IV antibiotics Ativan for seizure breakthrough DVT prophylaxis Consider preventive seizure treatment as indicated More recommendation per clinical course This medical document was created using an electronic medical record system with [employer] dictation system. Although this document has been carefully reviewed, there may still be some phonetic and typographical errors. These areas are purely typographical due to imperfections of the software programs, and do not reflect any compromise in the patient's medical car Prognosis poor Dietary Evaluation Review Comments: 1) If GI is accessible consider Jevity 1.2 @ 40 ml/hr x 24 hrs goal as tolerated 2) If pt remains NPO >7 days consider PN support to meet at least 75% or estimated needs 3) Advance pt diet when medically feasible 4) Continue current plan of care Expected Outcomes/Goals: 1) Pt to receive nutrition support within 7 days of NPO status 2) Pt diet to advance 3) F/U in 2-3 days Plan discussed with: Daughter, Son, Other Critical Care Time(min): 40 RAPHAEL LR MD Jan 21, 2024 09:18
[2024-01-21] MEDS: PANTOPRAZOLE 40 MG/10 ML VIAL INJ IV SCH (09:49)
[2024-01-21] MEDS: amLODIPine BESYLATE 5 MG TAB PO SCH (10:00)
--- NOTE | 2024-01-21 16:51 | DVH ---
PROCEDURE: MRI BRAIN HEAD WO CONTRAST INDICATION: Seizure EXAM DATE: 01/21/2024 03:45 PM COMPARISON: None TECHNIQUE: MRI brain without intravenous contrast. FINDINGS: Diffusion weighted images of the brain demonstrate no evidence of acute infarction. There is no evid ence of intracranial hemorrhage, extra-axial collection, mass effect, midline shift, herniation or hy drocephalus. The ventricles, sulci, and cisterns appear otherwise age appropriate. There is no old looking infarct in the right clint. Otherwise the signal intensities of the brain parenchyma are within normal limits. There are no signal abnormalities on the susceptibility weighted sequences. The major vascular flow voids are present. The visualized paranasal sinuses and mastoid air cells are clear. The surrounding soft tissues and osseous structures are otherwise unremarkable. Sella is empty. IMPRESSION: 1. No evidence of acute infarction, intracranial hemorrhage, mass lesion or hydrocephalus. 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 Empty sella. HS:Y
--- NOTE | 2024-01-21 22:23 | DVHPN2 ---
Progress Note - Dictate Date Seen: Jan 21, 2024 Medical Necessity Reason Pt with a Central, PICC or Fol: Yes The following are medically ne: Xavier Catheter Reason for xavier catheter: Strict I&O Subjective Patient seen and examined at bedside. Sedated, intubated on mechanical ventilator. Overnight events reviewed. vital signs Vital Sign Date Time Temp Pulse Resp B/P (MAP) Pulse Ox O2 Delivery O2 Flow Rate FiO2 01/21/24 22:06 30 01/21/24 22:06 72 01/21/24 22:06 16 99 Mechanical Ventilator+ 01/21/24 22:00 94/49 (64) 94/49 (64) 01/21/24 20:00 98.6 98.6 01/19/24 19:30 0 Total Intake and Output 01/20/24 01/20/24 01/21/24 15:00 23:00 07:00 Intake Total 1699.6 ml 878.6 ml 551.5 ml Output Total 1850 ml 500 ml Balance 1699.6 ml -971.4 ml 51.5 ml medications Current Medications Medications Dose Ordered Sig/Zenon Route Start Time Stop Time Status Last Admin Dose Admin Propofol 100 ml @ 2.7 mls/hr Q24H IV 01/19/24 16:45 01/21/24 19:14 27 MLS/HR Nicardipine HCl 250 ml @ 50 mls/hr Q5H IV 01/19/24 18:45 01/20/24 14:14 125 MLS/HR Norepinephrine Bitartrate 250 ml @ 3.75 mls/hr Q24H IV 01/19/24 19:45 01/21/24 21:45 3.75 MLS/HR Ondansetron HCl 4 mg Q4HP PRN IV 01/19/24 22:00 Enoxaparin Sodium 40 mg DAILY SC 01/20/24 10:00 01/21/24 09:49 40 MG Acetaminophen 650 mg Q6HP PRN PO 01/19/24 22:00 Nitroglycerin 0.4 mg Q5MINP PRN SL 01/19/24 22:00 Morphine Sulfate 2 mg Q30M PRN IV 01/19/24 22:00 Dextrose/Sodium Chloride 1,000 ml @ 65 mls/hr [id number] IV 01/19/24 22:00 01/20/24 14:24 65 MLS/HR Ceftriaxone Sodium 50 ml @ 100 mls/hr DAILY@09 IV 01/20/24 09:00 01/21/24 08:38 100 MLS/HR Azithromycin 250 ml @ 125 mls/hr DAILY IV 01/20/24 10:00 01/21/24 09:50 125 MLS/HR Albuterol 2.5 mg Q6HR NEB 01/20/24 18:00 01/21/24 18:14 2.5 MG Ipratropium [place] 0.5 mg Q6HR NEB 01/20/24 18:00 01/21/24 18:14 0.5 MG Pantoprazole Sodium 40 mg DAILY IV 01/21/24 10:00 01/21/24 09:49 40 MG Lisinopril 40 mg DAILY PO 01/20/24 14:45 01/20/24 15:56 40 MG Amlodipine Besylate 10 mg DAILY PO 01/21/24 10:00 Lorazepam 1 mg Q5MINP PRN IV 01/20/24 22:15 Fentanyl Citrate 250 ml @ 2.5 mls/hr Q24H IV 01/21/24 00:45 01/21/24 21:42 20 MLS/HR Dexmedetomidine HCl 400 mcg/ Dextrose 100 ml @ 4.32 mls/hr Q23H9M IV 01/21/24 09:30 objective Gen.: Patient lying in bed in medical ICU. Sedated, intubated on mechanical ventilator. Head: Normocephalic, atraumatic. Eyes: PERRLA. Ears: Normal external anatomy. Throat: Endotracheal tube and orogastric tube in place. Neck: Supple, trachea midline. Chest: Transmitted breath sounds bilaterally. Decreased air entry bilaterally. No wheezing. Bibasilar crackles. Cardiovascular: Positive S1, positive S2. Regular rate and rhythm. Abdomen: Positive bowel sounds in all 4 quadrants. Soft, nontender, nondistended. : Xavier in place. Normal external genitalia. Rectal: Deferred. Skin: Warm, dry. Intact. Extremities: 2+ radial pulses bilaterally. No lower extremity edema. Neuro: Sedated. laboratory and microbiology Laboratory Tests 01/21/24 03:59 Test 01/21/24 03:59 Range/Units Serum Glucose 131 H 74-106 mg/dL Assessment/Plan Impression: Acute hypoxic respiratory failure On mechanical ventilator Aspiration pneumonia Acute metabolic encephalopathy Mucus plugging causing collapse of the right lung Atelectasis Obesity, BMI 31.1 Hypokalemia Events: Remains on vent support On assist control with respiratory rate of 16, tidal volume 450, PEEP of 8, FiO2 at 30% Decrease PEEP to 5 ABG reviewed, compensated CXR reviewed, demonstrates pulmonary congestion. No pleural effusion. Brain MRI: No evidence of acute infarction, intracranial hemorrhage, mass lesion or hydrocephalus. Old lacunar infarct in the right clint. Sedated with Propofol, Fentanyl. Patient did not tolerate drop in sedation. Start Precedex drip. Potassium supplementation Check mag, phos Monitor renal function CPAP in AM. Labs and imaging reviewed. Rest of plan as noted below. Plan: s/p intubation on mechanical ventilator Head CT: No acute intracranial abnormality. CXR image and report reviewed. CT chest report and images reviewed: Rightward deviation of the mediastinum. Atelectasis with right lower lobe. Possible mucus plugging. Can not rule out superimposed pneumonia. ABG reviewed. Alkalemia due to respiratory alkalosis. Vent settings; assist control with respiratory rate of 16, tidal volume 450, PEEP of 5, FiO2 at 30% Titrate FIO2 to keep O2 saturation above 92%. VAP bundle Daily ABG and CXR while intubated. Sedate for ventilatory synchrony - on Propofol Pressors as necessary for hemodynamic support. Titrate to keep MAP above 65 mmHg/SBP above 90 mmHg. Continue broad spectrum antibiotics. F/u cultures. F/u RML BAL cultures Monitor renal function due to Acute kidney injury. Monitor electrolytes. Supplement as necessary. Nutritional support. Accucheks, ISS. Nicardipine drip for BP control - on hold GI/DVT prophylaxis. Updated family at bedside regarding management plan. Consent obtained for bronchoscopy. With full knowledge of risks and benefits, mother agreed for bronchoscopy with Bronchoalveolar lavage. Condition: Critical Prognosis: Poor given multiple comorbidities. Rest of plan per hospitalist and other consultants. A total of 35 minutes of critical care time was spent reviewing the patient record, examining the patient, making a diagnostic and therapeutic plan, discussing this plan with the medical personnel, following up on diagnostic studies and following the patient for clinical stability excluding any and all procedures. At least 50% of this time was spent in direct, [id number] contact. Thank you Dr. Ortega for allowing me to participate in this patient's care. Further recommendations will depend on patient's clinical course. Please do not hesitate to contact me if you have any questions or concerns. This medical document was created using an electronic medical record system with [employer] dictation system. Although this document has been carefully reviewed, there may still be some phonetic and typographical errors. These areas are purely typographical due to imperfections of the software programs, and do not reflect any compromise in the patient's medical care. Dietary Evaluation Review Comments: 1) If GI is accessible consider Jevity 1.2 @ 40 ml/hr x 24 hrs goal as tolerated 2) If pt remains NPO >7 days consider PN support to meet at least 75% or estimated needs 3) Advance pt diet when medically feasible 4) Continue current plan of care Expected Outcomes/Goals: 1) Pt to receive nutrition support within 7 days of NPO status 2) Pt diet to advance 3) F/U in 2-3 days Plan discussed with: Other (MARTÍN Mcgovern) Critical Care Time(min): 35 CJ FOY MD Jan 21, 2024 22:23
[2024-01-22] VITALS (107 sets, daily range): BP systolic 69–243; BP diastolic 27–233; PULSE 59–141; RESP 11–43; TEMP 96.3–99.5; O2SAT 97–100
--- NOTE | 2024-01-22 00:46 | DVHEEG2 ---
Neurology EEG Procedural Note Procedural Note EXAM DATE: 01/21/2024 REFERRING DOCTOR: Dr. Lr TECHNIQUE: Eighteen channels of EEG, 2 channels of EOG, and 1 channel of EKG were recorded using the [employer] 10/20 system. CLINICAL DATA: The patient was referred for an EEG evaluation for the evidence of seizure disorder. MEDICATIONS: See chart BACKGROUND ACTIVITY: There was electrode artifacts in the recording. This EEG showed medium voltage polymorphic delta and theta activity over both hemisphere with intervals of relatively suppressed background activity ACTIVATION: Hyperventilation: Not done Photic Stimulation: Not done Sleep: Nonresponsiveness IMPRESSION: This is a remarkably abnormal EEG, this EEG seen in severe cerebral dysfunction due to metabolic/hypoxic encephalopathy or medication effects, please correlate clinically. The EKG channel showed a regular heart rate of 84/min[place] [address] RAPHAEL LR MD Jan 22, 2024 00:45
[2024-01-22 04:01] LABS: Basophils # (auto) 0.1 10 ^3/uL (0-0.2); Basophils % (auto) 0.6 % (0.0-2.0); Eosinophils # (auto) 0.2 10 ^3/uL (0-0.8); Eosinophils % (auto) 1.5 % (0.0-7.0); Hematocrit 39.4 % (36.0-46.0); Hemoglobin 13.3 g/dL (12.2-16.2); Lymphocytes # (auto) 2.6 10 ^3/uL (0.4-5.4); Mean Corpuscular Hgb Conc. 33.6 g/dL (32.0-36.0); Mean Corpuscular Volume 98.2 fL (80.0-100.0); Monocytes # (auto) 1.3 10 ^3/uL (0-1.3); Monocytes % (auto) 10.7 % (0.0-12.0); Neutrophils # (auto) 8.2 10 ^3/uL (1.6-8.6); Neutrophils % (auto) 66.2 % (37.0-80.0); Nucleated Red Blood Cells % 0.1 %; Platelet Count (auto) 225 10^3/uL (140-450); Red Blood Cells 4.02 10^6/uL (4.0-5.20); Red Cell Distribution Width 14.4 % (11.8-14.3); White Blood Cell 12.3 10^3/uL (4.4-10.8)
[2024-01-22 04:12] LABS: Anion Gap 13 (5-15); Carbon Dioxide 22 mmol/L (20-31); Chloride 109 mmol/L (98-107); Potassium 3.2 mmol/L (3.5-5.1); Sodium 144 mmol/L (136-145)
[2024-01-22 04:13] LABS: Calcium 8.9 mg/dL (8.7-10.4)
[2024-01-22 04:18] LABS: BUN/Creatinine Ratio 7.2 (10.0-20.0); Blood Urea Nitrogen 12 mg/dL (9-23); Glucose 146 mg/dL (74-106)
[2024-01-22 04:19] LABS: Magnesium 1.9 mg/dL (1.6-2.6)
[2024-01-22 04:20] LABS: Phosphorus 5.3 mg/dL (2.4-5.1)
--- NOTE | 2024-01-22 05:38 | DVH ---
CHEST RADIOGRAPH Indication: Pulmonary congestion Technique: Single frontal view of the chest was obtained Comparison: XY CHEST PORTABLE on DOS: 01/21/24, XY CHEST XRAY 1 VIEW on DOS: 01/20/24 FINDINGS: Lines and Tubes: The endotracheal tube terminates 5.4 cm above the toño. The enteric tube courses b elow the left hemidiaphragm and the tip extends outside the field of view. Lungs: Stable mild pulmonary vascular congestion. Pleura: No effusion. No pneumothorax. Cardiomediastinal contours: Unremarkable Bones: No acute osseous abnormality. IMPRESSION: 1. No significant interval change.
[2024-01-22] MEDS: POTASSIUM CHL 20MEQ/100ML 100 ML IV ONE (05:46)
[2024-01-22 07:33] LABS: Base Excess -4.6 mmol/L (-2.0-3.0)
[2024-01-22] MEDS: SOD CHL 0.45% WITH 20MEQ KCL 1,000 ML IV ONE (07:36)
--- NOTE | 2024-01-22 07:59 | DVHPN2 ---
Subjective Patient intubated and somewhat lethargic, sedation weaned off Reviewed: Care Plan, H&P, Labs, Medications Changes from previous H/P or p: No Changes General: Per HPI Objective Vitals Vital Signs Date Time Temp Pulse Resp B/P (MAP) Pulse Ox O2 Delivery O2 Flow Rate FiO2 01/22/24 07:20 120 16 119/73 (88) 100 30 01/22/24 06:45 97.3 207.1 01/22/24 05:58 Mechanical Ventilator+ Intake/Output Intake and Output 01/22/24 07:00 Intake Total 1289.40 ml Output Total 225 ml Balance 1064.40 ml Intake IV Total 1289.40 ml Output Urine Total 225 ml # Bowel Movements 2 General Appearance: mild distress HEENT: Atraumatic, PERRLA Lungs: Clear to auscultation, Normal air movement, Other (Mechanical ventilation) Cardiovascular: Normal S1, Normal S2, Other (Sinus tach) Abdomen: Normal bowel sounds, No tenderness, No hepatospenomegaly Genitourinary: No Apparent Abnormalities (Alberts catheterization) Musculoskeletal: Other (No motor removed) Neuro: Other (Unable to assess) Psych/Mental Status: Other (Unable to assess) Medications Current Medications Medications Dose Ordered Sig/Zenon Route Start Time Stop Time Status Last Admin Dose Admin Propofol 100 ml @ 2.7 mls/hr Q24H IV 01/19/24 16:45 01/22/24 02:38 16.2 MLS/HR Nicardipine HCl 250 ml @ 50 mls/hr Q5H IV 01/19/24 18:45 01/20/24 14:14 125 MLS/HR Norepinephrine Bitartrate 250 ml @ 3.75 mls/hr Q24H IV 01/19/24 19:45 01/21/24 21:45 3.75 MLS/HR Ondansetron HCl 4 mg Q4HP PRN IV 01/19/24 22:00 Enoxaparin Sodium 40 mg DAILY SC 01/20/24 10:00 01/21/24 09:49 40 MG Acetaminophen 650 mg Q6HP PRN PO 01/19/24 22:00 Nitroglycerin 0.4 mg Q5MINP PRN SL 01/19/24 22:00 Morphine Sulfate 2 mg Q30M PRN IV 01/19/24 22:00 Ceftriaxone Sodium 50 ml @ 100 mls/hr DAILY@09 IV 01/20/24 09:00 01/21/24 08:38 100 MLS/HR Azithromycin 250 ml @ 125 mls/hr DAILY IV 01/20/24 10:00 01/21/24 09:50 125 MLS/HR Albuterol 2.5 mg Q6HR NEB 01/20/24 18:00 01/22/24 06:26 2.5 MG Ipratropium [place] 0.5 mg Q6HR NEB 01/20/24 18:00 01/22/24 06:26 0.5 MG Pantoprazole Sodium 40 mg DAILY IV 01/21/24 10:00 01/21/24 09:49 40 MG Lisinopril 40 mg DAILY PO 01/20/24 14:45 01/20/24 15:56 40 MG Amlodipine Besylate 10 mg DAILY PO 01/21/24 10:00 Lorazepam 1 mg Q5MINP PRN IV 01/20/24 22:15 Fentanyl Citrate 250 ml @ 2.5 mls/hr Q24H IV 01/21/24 00:45 01/21/24 21:42 20 MLS/HR Dexmedetomidine HCl 400 mcg/ Dextrose 100 ml @ 4.32 mls/hr Q23H9M IV 01/21/24 09:30 01/21/24 23:32 4.32 MLS/HR Laboratory Results Laboratory Tests 01/22/24 03:00 Chemistry Test 01/22/24 03:00 Calcium Level 8.9 mg/dL (8.7-10.4) Magnesium Level 1.9 mg/dL (1.6-2.6) Phosphorus Level 5.3 mg/dL (2.4-5.1) H Urinalysis Test 01/19/24 18:15 Urine Color Colorless (Yellow) Urine Clarity Clear (Clear) Urine pH 6.5 (5.0-9.0) Urine Specific Bryant 1.031 (1.001-1.035) Urine Protein Negative (Negative) Urine Ketones Negative (Negative) Urine Blood Negative /uL (Negative) Urine Nitrite Negative (Negative) Urine Bilirubin Negative (Negative) Urine Urobilinogen Normal mg/dL (Negative) Urine Leukocyte Esterase Negative /uL (Negative) Urine RBC 1 /hpf (0 - 4) Urine WBC <1 /hpf (0 - 5) Urine Squamous Epithelial Cells Few /hpf (<5) Urine Bacteria None seen /hpf (None Seen) Urine Glucose Normal mg/dL (Normal) Blood Gas Results Test 01/22/24 07:08 Arterial Blood pH 7.389 (7.350-7.450) FiO2 % 30.0 Microbiology Microbiology Date/Time Source Procedure Growth Status 01/20/24 19:37 Blood Blood Culture - Preliminary NO GROWTH AFTER 24 HOURS OF INCUBATION. Resulted 01/20/24 19:15 Nose MRSA Screen - Final Complete 01/19/24 20:48 Bronchial Washings Gram Stain - Final Resulted 01/19/24 20:48 Bronchial Washings Respiratory Culture - Preliminary Resulted Labs and/or images reviewed: Labs reviewed by me, Image(s) reviewed by me Assessment/Plan Assessment/Plan LImpression: -acute hypoxic respiratory failure on mechanical ventilation -probable aspiration pneumonia -breakthrough seizure activity -history of anxiety disorder, probable other underlying psychosis, not otherwise specified -obesity -leukocytosis, probable sepsis -right upper bronchus occlusion secondary to mucus plugging -accelerated hypertension -acute kidney injury Plan: Events: X-ray reviewed. Bump in creatinine. Assessed with sedation off with patient opening eyes. -continue mechanical ventilation CPAP trial once awake and able. -continue Precedex -bronchodilators q.6 hours, add Mucomyst q.6 hours -nicardipine drip as needed to keep systolic blood pressure less than 160 mmHg. Continue amlodipine and lisinopril -PUD, DVT prophylaxis -repeat labs in a.m. -consultations: Pulmonology, neurology Critical care time spent with patient discussing and formulating plan of care: 90 minutes. This does not include time spent performing procedures. This medical document was created using an electronic medical record system with [employer] dictation system. Although this document has been carefully reviewed, there may still be some phonetic and typographical errors. These areas are purely typographical due to imperfections of the software programs, and do not reflect any compromise in the patient's medical care. 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 Procedure Category Date Status Time Cpap/Sed Vacation Med ORDERS 01/21/24 Transmitted Weaning 08:11 Cpap Trial For Am ORDERS 01/21/24 Transmitted 08:11 Brain Head Wo Contrast MRI 01/21/24 Resulted 12:41 Sod Chl 0.45% With PHA 01/22/24 In Process 20meq Kcl 07:15 Basic Metabolic Panel LAB 01/23/24 Verified 04:00 Magnesium LAB 01/23/24 Verified 04:00 Chest Portable XY 01/23/24 Logged 04:00 Complete Blood Count LAB 01/23/24 Verified 04:00 Metoprolol Inj PHA 01/22/24 Logged (Lopressor) 08:00 Date of Service: Jan 22, 2024 Billing Provider: PIA HEATH NP Common Visit Codes: [id number] CARE 30-74 MIN PIA HEATH NP Jan 22, 2024 07:59
[2024-01-22] MEDS: METOPROLOL TARTRATE 1MG/1ML-5ML VIAL IV ONE ×2 (08:50→13:18)
--- NOTE | 2024-01-22 10:45 | DVHPN2 ---
"Progress Note - Dictate Date Seen: Jan 22, 2024 Medical Necessity Reason Pt with a Central, PICC or Fol: Yes The following are medically ne: Xavier Catheter Reason for xavier catheter: Strict I&O Subjective Ms. Samaniego is a 58 years old right-handed female with a history of hypertension, anxiety, the patient was admitted on 01/17/2024 to the [facility] with a chief company of altered mental state, seizure activity. I have seen and examined the patient, have discussed with her nurse and other medical staff. She was awake, she was responsive to verbal stimuli, she moves the arms and the legs Her daughter in the room She has pain in the left elbow UDS, 01/19/2024: Negative Urinalysis, 01/19/2024: Unremarkable ABG, 01/19/2024: Respiratory alkalosis WBC/HB/PLT/MCV, 01/20/2024: 16.3/16.2/219/96.6 CMP, 01/20/2024: Normal EEG 01/21/2024: a remarkably abnormal EEG Chest ray, 01/19/24: Endotracheal tube projects 5.7 cm superior to the toño. Enteric tube projects terminating within the stomach. Opacification of the right lower lung zone concerning for atelectasis with superimposed infection not excluded. There is mild rightward deviation of the mediastinum. CXR, 01/21/24: 1. Pulmonary congestion. 2. Stable position of the support lines and tubes CT head, 01/19/2024: No evidence of acute intracranial abnormality. Nonspecific partially empty sella CTA head, neck, 01/19/2024: 1. No large vessel occlusion or high-grade stenosis in the arteries of the head and neck. 2. 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 3. Large amount of fluid in the oropharynx and nasopharynx. Fluid is seen in the dependent portion of trachea. Pulmonary opacities in the right upper lobe and asymmetric reduction in right lung volume. Aspiration pneumonia can not be ruled out. Recommend suctioning of the fluid in oropharynx and trachea MRI head, 01/21/2024: No evidence of acute infarction, intracranial hemorrhage, mass lesion or hydrocephalus. Old lacunar infarct in the right clint. Empty sella. vital signs Vital Sign Date Time Temp Pulse Resp B/P (MAP) Pulse Ox O2 Delivery O2 Flow Rate FiO2 01/22/24 10:06 175/86 01/22/24 09:00 97.9 111 19 100 208.2 01/22/24 08:00 30 01/22/24 08:00 Mechanical Ventilator+ Total Intake and Output 01/21/24 01/21/24 01/22/24 15:00 23:00 07:00 Intake Total 636.1 ml 318.4 ml 334.90 ml Output Total 100 ml 125 ml Balance 636.1 ml 218.4 ml 209.90 ml medications Current Medications Medications Dose Ordered Sig/Zenon Route Start Time Stop Time Status Last Admin Dose Admin Propofol 100 ml @ 2.7 mls/hr Q24H IV 01/19/24 16:45 01/22/24 02:38 16.2 MLS/HR Nicardipine HCl 250 ml @ 50 mls/hr Q5H IV 01/19/24 18:45 01/20/24 14:14 125 MLS/HR Norepinephrine Bitartrate 250 ml @ 3.75 mls/hr Q24H IV 01/19/24 19:45 01/21/24 21:45 3.75 MLS/HR Ondansetron HCl 4 mg Q4HP PRN IV 01/19/24 22:00 Enoxaparin Sodium 40 mg DAILY SC 01/20/24 10:00 01/22/24 10:12 40 MG Acetaminophen 650 mg Q6HP PRN PO 01/19/24 22:00 Nitroglycerin 0.4 mg Q5MINP PRN SL 01/19/24 22:00 Morphine Sulfate 2 mg Q30M PRN IV 01/19/24 22:00 Ceftriaxone Sodium 50 ml @ 100 mls/hr DAILY@09 IV 01/20/24 09:00 01/22/24 08:54 100 MLS/HR Azithromycin 250 ml @ 125 mls/hr DAILY IV 01/20/24 10:00 01/22/24 09:48 125 MLS/HR Albuterol 2.5 mg Q6HR NEB 01/20/24 18:00 01/22/24 06:26 2.5 MG Ipratropium [place] 0.5 mg Q6HR NEB 01/20/24 18:00 01/22/24 06:26 0.5 MG Pantoprazole Sodium 40 mg DAILY IV 01/21/24 10:00 01/22/24 09:48 40 MG Lisinopril 40 mg DAILY PO 01/20/24 14:45 01/22/24 10:06 40 MG Amlodipine Besylate 10 mg DAILY PO 01/21/24 10:00 01/22/24 09:48 10 MG Lorazepam 1 mg Q5MINP PRN IV 01/20/24 22:15 Fentanyl Citrate 250 ml @ 2.5 mls/hr Q24H IV 01/21/24 00:45 01/21/24 21:42 20 MLS/HR Dexmedetomidine HCl 400 mcg/ Dextrose 100 ml @ 4.32 mls/hr Q23H9M IV 01/21/24 09:30 01/21/24 23:32 4.32 MLS/HR objective The patient is well-nourished and well-developed with no distress. The patient is intubated MENTAL STATUS: Possibly responsive to light painful stimuli CRANIAL NERVES: Pupils are equal, round and reactive.There are spontaneous conjugated eye movement. No signs of facial weakness. There are gagging or coughing reflexes during the aura care SENSATION: Responses to pain stimuli. MOTOR: Normal tone in the upper and lower extremity. Normal muscle bulk. No fasciculations. Moves the hands a little bit REFLEXES: Deep tendon reflexes are symmetrical. No pathological reflexes. CEREBELLAR/COORDINATION: Deferred GAIT/STATION: deferred. laboratory and microbiology Laboratory Tests 01/22/24 03:00 Test 01/22/24 03:00 Range/Units Serum Glucose 146 H 74-106 mg/dL Problem List Grand mal seizure Status epileptics Metabolic encephalopathy Respiratory failure Brain aneurysm Fever/sepsis Left elbow pain Assessment/Plan Monitoring Supportive treatment ICU care Left elbow X-ray Stabilize vitals Respiratory support/vent management Oxygen IV antibiotics Ativan for seizure breakthrough DVT prophylaxis Consider preventive seizure treatment as indicated More recommendation per clinical course This medical document was created using an electronic medical record system with [employer] dictation system. Although this document has been carefully reviewed, there may still be some phonetic and typographical errors. These areas are purely typographical due to imperfections of the software programs, and do not reflect any compromise in the patient's medical car Prognosis guarded Dietary Evaluation Review Comments: 1) If GI is accessible consider Jevity 1.2 @ 40 ml/hr x 24 hrs goal as tolerated 2) If pt remains NPO >7 days consider PN support to meet at least 75% or estimated needs 3) Advance pt diet when medically feasible 4) Continue current plan of care Expected Outcomes/Goals: 1) Pt to receive nutrition support within 7 days of NPO status 2) Pt diet to advance 3) F/U in 2-3 days Plan discussed with: Daughter, Other Critical Care Time(min): 30 RAPHAEL LR MD Jan 22, 2024 10:45"
--- NOTE | 2024-01-22 12:20 | DVH ---
CLINICAL INDICATION: pain TECHNIQUE: XY L ELBOW 3 VIEW XRAY Comparison: None FINDINGS/IMPRESSION: There is no evidence of acute fracture or dislocation. Soft tissues are unremarkable.
--- NOTE | 2024-01-22 21:22 | DVHPN2 ---
Progress Note - Dictate Date Seen: Jan 22, 2024 Medical Necessity Reason Pt with a Central, PICC or Fol: Yes The following are medically ne: Xavier Catheter Reason for xavier catheter: Strict I&O Subjective Patient seen and examined at bedside. Sedated, intubated on mechanical ventilator. Overnight events reviewed. vital signs Vital Sign Date Time Temp Pulse Resp B/P (MAP) Pulse Ox O2 Delivery O2 Flow Rate FiO2 01/22/24 20:18 111 19 146/69 (94) 100 30 01/22/24 19:15 99.5 211.1 01/22/24 18:00 Mechanical Ventilator+ Total Intake and Output 01/21/24 01/21/24 01/22/24 15:00 23:00 07:00 Intake Total 636.1 ml 318.4 ml 354.08 ml Output Total 100 ml 125 ml Balance 636.1 ml 218.4 ml 229.08 ml medications Current Medications Medications Dose Ordered Sig/Zenon Route Start Time Stop Time Status Last Admin Dose Admin Propofol 100 ml @ 2.7 mls/hr Q24H IV 01/19/24 16:45 01/22/24 16:10 21.6 MLS/HR Nicardipine HCl 250 ml @ 50 mls/hr Q5H IV 01/19/24 18:45 01/22/24 12:45 150 MLS/HR Norepinephrine Bitartrate 250 ml @ 3.75 mls/hr Q24H IV 01/19/24 19:45 01/21/24 21:45 3.75 MLS/HR Ondansetron HCl 4 mg Q4HP PRN IV 01/19/24 22:00 Enoxaparin Sodium 40 mg DAILY SC 01/20/24 10:00 01/22/24 10:12 40 MG Acetaminophen 650 mg Q6HP PRN PO 01/19/24 22:00 Nitroglycerin 0.4 mg Q5MINP PRN SL 01/19/24 22:00 Morphine Sulfate 2 mg Q30M PRN IV 01/19/24 22:00 Ceftriaxone Sodium 50 ml @ 100 mls/hr DAILY@09 IV 01/20/24 09:00 01/22/24 08:54 100 MLS/HR Azithromycin 250 ml @ 125 mls/hr DAILY IV 01/20/24 10:00 01/22/24 09:48 125 MLS/HR Albuterol 2.5 mg Q6HR NEB 01/20/24 18:00 01/22/24 18:55 2.5 MG Ipratropium [place] 0.5 mg Q6HR NEB 01/20/24 18:00 01/22/24 18:55 0.5 MG Pantoprazole Sodium 40 mg DAILY IV 01/21/24 10:00 01/22/24 09:48 40 MG Lisinopril 40 mg DAILY PO 01/20/24 14:45 01/22/24 10:06 40 MG Amlodipine Besylate 10 mg DAILY PO 01/21/24 10:00 01/22/24 09:48 10 MG Lorazepam 1 mg Q5MINP PRN IV 01/20/24 22:15 Fentanyl Citrate 250 ml @ 2.5 mls/hr Q24H IV 01/21/24 00:45 01/21/24 21:42 20 MLS/HR Dexmedetomidine HCl 400 mcg/ Dextrose 100 ml @ 4.32 mls/hr Q23H9M IV 01/21/24 09:30 01/21/24 23:32 4.32 MLS/HR Metoprolol Tartrate 50 mg BID PO 01/22/24 22:00 Potassium Chloride/Sodium Chloride 1,000 ml @ 75 mls/hr [id number] IV 01/22/24 20:45 objective Gen.: Patient lying in bed in medical ICU. Sedated, intubated on mechanical ventilator. Head: Normocephalic, atraumatic. Eyes: PERRLA. Ears: Normal external anatomy. Throat: Endotracheal tube and orogastric tube in place. Neck: Supple, trachea midline. Chest: Transmitted breath sounds bilaterally. Decreased air entry bilaterally. No wheezing. Bibasilar crackles. Cardiovascular: Positive S1, positive S2. Regular rate and rhythm. Abdomen: Positive bowel sounds in all 4 quadrants. Soft, nontender, nondistended. : Xavier in place. Normal external genitalia. Rectal: Deferred. Skin: Warm, dry. Intact. Extremities: 2+ radial pulses bilaterally. No lower extremity edema. Neuro: Sedated. laboratory and microbiology Laboratory Tests 01/22/24 03:00 Test 01/22/24 03:00 Range/Units Serum Glucose 146 H 74-106 mg/dL Assessment/Plan Impression: Acute hypoxic respiratory failure On mechanical ventilator Aspiration pneumonia Acute metabolic encephalopathy Mucus plugging causing collapse of the right lung Atelectasis Obesity, BMI 31.1 Hypokalemia Events: Remains on vent support On assist control with respiratory rate of 16, tidal volume 450, PEEP of 5, FiO2 at 30% ABG reviewed, notable for alkalemia CXR reviewed, demonstrates stable mild pulmonary vascular congestion. No pleural effusion or pneumothorax. Brain MRI: No evidence of acute infarction, intracranial hemorrhage, mass lesion or hydrocephalus. Old lacunar infarct in the right clint. Sedated with Propofol, Fentanyl. Off nicardipine drip. CPAP trial this AM - pt tachycardic in 140s Placed back on full support Will attempt CPAP in AM. Potassium supplementation Phos 5.3, mag at goal Monitor renal function Labs and imaging reviewed. Rest of plan as noted below. Plan: s/p intubation on mechanical ventilator Head CT: No acute intracranial abnormality. CXR image and report reviewed. CT chest report and images reviewed: Rightward deviation of the mediastinum. Atelectasis with right lower lobe. Possible mucus plugging. Can not rule out superimposed pneumonia. ABG reviewed. Alkalemia due to respiratory alkalosis. Vent settings; assist control with respiratory rate of 16, tidal volume 450, PEEP of 5, FiO2 at 30% Titrate FIO2 to keep O2 saturation above 92%. VAP bundle Daily ABG and CXR while intubated. Sedate for ventilatory synchrony - on Propofol Pressors as necessary for hemodynamic support. Titrate to keep MAP above 65 mmHg/SBP above 90 mmHg. Continue broad spectrum antibiotics. F/u cultures. F/u RML BAL cultures Monitor renal function due to Acute kidney injury. Monitor electrolytes. Supplement as necessary. Nutritional support. Accucheks, ISS. Nicardipine drip for BP control - on hold GI/DVT prophylaxis. Updated family at bedside regarding management plan. Consent obtained for bronchoscopy. With full knowledge of risks and benefits, mother agreed for bronchoscopy with Bronchoalveolar lavage. Condition: Critical Prognosis: Poor given multiple comorbidities. Rest of plan per hospitalist and other consultants. A total of 35 minutes of critical care time was spent reviewing the patient record, examining the patient, making a diagnostic and therapeutic plan, discussing this plan with the medical personnel, following up on diagnostic studies and following the patient for clinical stability excluding any and all procedures. At least 50% of this time was spent in direct, [id number] contact. Thank you Dr. Ortega for allowing me to participate in this patient's care. Further recommendations will depend on patient's clinical course. Please do not hesitate to contact me if you have any questions or concerns. This medical document was created using an electronic medical record system with [employer] system. Although this document has been carefully reviewed, there may still be some phonetic and typographical errors. These areas are purely typographical due to imperfections of the software programs, and do not reflect any compromise in the patient's medical care. Dietary Evaluation Review Comments: 1) If GI is accessible consider Jevity 1.2 @ 40 ml/hr x 24 hrs goal as tolerated 2) If pt remains NPO >7 days consider PN support to meet at least 75% or estimated needs 3) Advance pt diet when medically feasible 4) Continue current plan of care Expected Outcomes/Goals: 1) Pt to receive nutrition support within 7 days of NPO status 2) Pt diet to advance 3) F/U in 2-3 days Plan discussed with: Other (MARTÍN Mcgovern) Critical Care Time(min): 35 CJ FOY MD Jan 22, 2024 21:22
[2024-01-22] MEDS: SOD CHL 0.45% WITH 20MEQ KCL 1,000 ML IV SCH (21:29)
[2024-01-22] MEDS: METOPROLOL TARTRATE 50 MG TAB PO SCH (21:30)
[2024-01-23] VITALS (107 sets, daily range): BP systolic 89–189; BP diastolic 49–131; PULSE 56–119; RESP 11–22; TEMP 98.4–99.9; O2SAT 97–100
[2024-01-23 03:55] LABS: Basophils # (auto) 0 10 ^3/uL (0-0.2); Basophils % (auto) 0.4 % (0.0-2.0); Eosinophils # (auto) 0.2 10 ^3/uL (0-0.8); Eosinophils % (auto) 2.2 % (0.0-7.0); Hematocrit 37.4 % (36.0-46.0); Hemoglobin 12.8 g/dL (12.2-16.2); Lymphocytes # (auto) 2.7 10 ^3/uL (0.4-5.4); Lymphocytes % (auto) 32.4 % (10.0-50.0); Mean Corpuscular Hemoglobin 33.6 pg (28.0-32.0); Mean Corpuscular Hgb Conc. 34.2 g/dL (32.0-36.0); Mean Corpuscular Volume 98.1 fL (80.0-100.0); Monocytes % (auto) 11.8 % (0.0-12.0); Neutrophils # (auto) 4.5 10 ^3/uL (1.6-8.6); Neutrophils % (auto) 53.2 % (37.0-80.0); Nucleated Red Blood Cells % 0.1 %; Platelet Count (auto) 180 10^3/uL (140-450); Red Blood Cells 3.81 10^6/uL (4.0-5.20); Red Cell Distribution Width 14.2 % (11.8-14.3); White Blood Cell 8.5 10^3/uL (4.4-10.8)
[2024-01-23 03:57] LABS: Anion Gap 7 (5-15); Carbon Dioxide 23 mmol/L (20-31); Chloride 112 mmol/L (98-107); Potassium 3.6 mmol/L (3.5-5.1); Sodium 142 mmol/L (136-145)
[2024-01-23 03:58] LABS: Calcium 8.9 mg/dL (8.7-10.4)
[2024-01-23 04:02] LABS: Glucose 101 mg/dL (74-106)
[2024-01-23 04:03] LABS: BUN/Creatinine Ratio 11.8 (10.0-20.0); Blood Urea Nitrogen 12 mg/dL (9-23)
--- NOTE | 2024-01-23 04:09 | DVH ---
CHEST RADIOGRAPH Indication:aspiration pna Technique: Single frontal view of the chest was obtained Comparison: XY CHEST PORTABLE on DOS: 01/22/24, XY CHEST PORTABLE on DOS: 01/21/24, XY CHEST XRAY 1 V IEW on DOS: 01/20/24, XY CHEST PORTABLE on DOS: 01/19/24, XY CHEST PORTABLE on DOS: 01/19/24, XY CHES T PORTABLE on DOS: 01/22/24 FINDINGS: Lines and Tubes: The endotracheal tube terminates 5.4 cm above the toño. The enteric tube courses b elow the left hemidiaphragm and the tip extends outside the field of view. Lungs: Stable mild pulmonary vascular congestion. Pleura: No effusion. No pneumothorax. Cardiomediastinal contours: Unremarkable Bones: No acute osseous abnormality. IMPRESSION: 1. No significant interval change.
[2024-01-23 07:20] LABS: Base Excess -4.4 mmol/L (-2.0-3.0)
[2024-01-23] MEDS ORDERED: VANCOMYCIN PER PHARMACY 0 MG IV SCH (07:45)
[2024-01-23] MEDS: VANCOMYCIN 1GM/200ML PREMIX 200 ML IV SCH ×2 (08:32→20:13)
--- NOTE | 2024-01-23 08:39 | DVHPN2 ---
Subjective Patient intubated and somewhat lethargic, sedation weaned off Reviewed: Care Plan, H&P, Labs, Medications Changes from previous H/P or p: No Changes General: Per HPI Objective Vitals Vital Signs Date Time Temp Pulse Resp B/P (MAP) Pulse Ox O2 Delivery O2 Flow Rate FiO2 01/23/24 08:17 107 172/84 01/23/24 08:06 17 100 30 01/23/24 07:30 99.1 210.4 01/23/24 06:00 Mechanical Ventilator+ Intake/Output Intake and Output 01/23/24 07:00 Intake Total 3427.20 ml Output Total 2100 ml Balance 1327.20 ml Intake Oral 120 ml IV Total 3307.20 ml Output Urine Total 2100 ml General Appearance: mild distress HEENT: Atraumatic, PERRLA Lungs: Clear to auscultation, Normal air movement, Other (Mechanical ventilation) Cardiovascular: Normal S1, Normal S2, Other (Sinus tach) Abdomen: Normal bowel sounds, No tenderness, No hepatospenomegaly Genitourinary: No Apparent Abnormalities (Alberts catheterization) Musculoskeletal: Other (No motor removed) Neuro: Other (Unable to assess) Skin: Dry, Intact Psych/Mental Status: Other (Unable to assess) Medications Current Medications Medications Dose Ordered Sig/Zenon Route Start Time Stop Time Status Last Admin Dose Admin Propofol 100 ml @ 2.7 mls/hr Q24H IV 01/19/24 16:45 01/23/24 04:27 18.9 MLS/HR Nicardipine HCl 250 ml @ 50 mls/hr Q5H IV 01/19/24 18:45 01/22/24 12:45 150 MLS/HR Norepinephrine Bitartrate 250 ml @ 3.75 mls/hr Q24H IV 01/19/24 19:45 01/21/24 21:45 3.75 MLS/HR Ondansetron HCl 4 mg Q4HP PRN IV 01/19/24 22:00 Enoxaparin Sodium 40 mg DAILY SC 01/20/24 10:00 01/22/24 10:12 40 MG Acetaminophen 650 mg Q6HP PRN PO 01/19/24 22:00 Nitroglycerin 0.4 mg Q5MINP PRN SL 01/19/24 22:00 Morphine Sulfate 2 mg Q30M PRN IV 01/19/24 22:00 Albuterol 2.5 mg Q6HR NEB 01/20/24 18:00 01/23/24 06:13 2.5 MG Ipratropium [place] 0.5 mg Q6HR NEB 01/20/24 18:00 01/23/24 06:13 0.5 MG Pantoprazole Sodium 40 mg DAILY IV 01/21/24 10:00 01/22/24 09:48 40 MG Lisinopril 40 mg DAILY PO 01/20/24 14:45 01/22/24 10:06 40 MG Amlodipine Besylate 10 mg DAILY PO 01/21/24 10:00 01/22/24 09:48 10 MG Lorazepam 1 mg Q5MINP PRN IV 01/20/24 22:15 Fentanyl Citrate 250 ml @ 2.5 mls/hr Q24H IV 01/21/24 00:45 01/22/24 22:41 12.5 MLS/HR Dexmedetomidine HCl 400 mcg/ Dextrose 100 ml @ 4.32 mls/hr Q23H9M IV 01/21/24 09:30 01/23/24 07:30 4.32 MLS/HR Metoprolol Tartrate 50 mg BID PO 01/22/24 22:00 01/23/24 08:17 50 MG Potassium Chloride/Sodium Chloride 1,000 ml @ 75 mls/hr [id number] IV 01/22/24 20:45 01/22/24 21:29 75 MLS/HR Vancomycin HCl 0 ml @ 0 mls/hr UD IV 01/23/24 07:45 UNV Vancomycin HCl 200 ml @ 200 mls/hr Q1H IV 01/23/24 08:00 01/23/24 09:59 01/23/24 08:32 200 MLS/HR Laboratory Results Laboratory Tests 01/23/24 03:00 Chemistry Test 01/23/24 03:00 Calcium Level 8.9 mg/dL (8.7-10.4) Magnesium Level 2.0 mg/dL (1.6-2.6) Urinalysis Test 01/19/24 18:15 Urine Color Colorless (Yellow) Urine Clarity Clear (Clear) Urine pH 6.5 (5.0-9.0) Urine Specific [place] 1.031 (1.001-1.035) Urine Protein Negative (Negative) Urine Ketones Negative (Negative) Urine Blood Negative /uL (Negative) Urine Nitrite Negative (Negative) Urine Bilirubin Negative (Negative) Urine Urobilinogen Normal mg/dL (Negative) Urine Leukocyte Esterase Negative /uL (Negative) Urine RBC 1 /hpf (0 - 4) Urine WBC <1 /hpf (0 - 5) Urine Squamous Epithelial Cells Few /hpf (<5) Urine Bacteria None seen /hpf (None Seen) Urine Glucose Normal mg/dL (Normal) Blood Gas Results Test 01/22/24 13:00 01/23/24 07:16 Arterial Blood pH 7.496 (7.350-7.450) 7.347 (7.350-7.450) FiO2 % 30.0 30.0 Microbiology Microbiology Date/Time Source Procedure Growth Status 01/20/24 19:37 Blood Blood Culture - Preliminary NO GROWTH AFTER 48 HOURS OF INCUBATION. Resulted 01/20/24 19:15 Nose MRSA Screen - Final Complete 01/19/24 20:48 Bronchial Washings Gram Stain - Final Complete 01/19/24 20:48 Respiratory Culture - Final Staphylococcus aureus Complete Labs and/or images reviewed: Labs reviewed by me, Image(s) reviewed by me Assessment/Plan Assessment/Plan LImpression: -acute hypoxic respiratory failure on mechanical ventilation -probable aspiration pneumonia -breakthrough seizure activity -history of anxiety disorder, probable other underlying psychosis, not otherwise specified -obesity -leukocytosis, probable sepsis -right upper bronchus occlusion secondary to mucus plugging -accelerated hypertension -acute kidney injury Plan: Events: Sedation weaning. NIcardipine for BP control. Metoprolol Tartrate for BP/HR control -continue mechanical ventilation CPAP trial once awake and able. -continue Precedex -bronchodilators q.6 hours, add Mucomyst q.6 hours -nicardipine drip as needed to keep systolic blood pressure less than 160 mmHg. Continue amlodipine and lisinopril -PUD, DVT prophylaxis -repeat labs in a.m. -consultations: Pulmonology, neurology Critical care time spent with patient discussing and formulating plan of care: 90 minutes. This does not include time spent performing procedures. This medical document was created using an electronic medical record system with [employer] system. Although this document has been carefully reviewed, there may still be some phonetic and typographical errors. These areas are purely typographical due to imperfections of the software programs, and do not reflect any compromise in the patient's medical care. 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 - PIA HEATH NP Procedure Category Date Status Time Metoprolol Tartrate PHA 01/22/24 In Process Tablet (Lopressor Ta 22:00 Sod Chl 0.45% With PHA 01/22/24 In Process 20meq Kcl 20:45 Cpap/Sed Vacation Med ORDERS 01/23/24 Transmitted Weaning 07:39 Cpap Trial For Am ORDERS 01/23/24 Transmitted 07:39 Vancomycin Per PHA 01/23/24 Pending Pharmacy 07:45 Basic Metabolic Panel LAB 01/24/24 Verified 04:00 Chest Portable XY 01/24/24 Logged 04:00 Vancomycin 1gm/200ml PHA 01/23/24 In Process Premix 08:00 Date of Service: Jan 23, 2024 Billing Provider: PIA HEATH NP Common Visit Codes: [id number] CARE 30-74 MIN PIA HEATH NP Jan 23, 2024 08:39
[2024-01-23 11:12] LABS: Base Excess -5.7 mmol/L (-2.0-3.0)
[2024-01-23] MEDS: DexAMETHasone SOD PHOS 4 MG/1ML SDV INJ IV SCH (12:46)
[2024-01-23] MEDS: diphenhdrAMINE HCL 50 MG/1 ML VL IV ONE (16:23)
[2024-01-23] MEDS: niCARdipine 50 MG in SODIUM CHL 0.9% 230 ML IV SCH (16:45)
[2024-01-23] MEDS: METOPROLOL TARTRATE 50 MG TAB PO SCH (21:14)
[2024-01-23] MEDS: FAMOTIDINE (10MG/ML) 2ML VL IV SCH (21:14)
[2024-01-23] MEDS: Jevity 1.2 Cal/Fiber 1 Liter GT SCH (21:18)
--- NOTE | 2024-01-23 22:11 | DVHPN2 ---
Progress Note - Dictate Date Seen: Jan 23, 2024 Medical Necessity Reason Pt with a Central, PICC or Fol: Yes The following are medically ne: Xavier Catheter Reason for xavier catheter: Strict I&O vital signs Vital Sign Date Time Temp Pulse Resp B/P (MAP) Pulse Ox O2 Delivery O2 Flow Rate FiO2 01/23/24 21:45 98.8 65 15 133/71 (91) 100 209.8 136/125 (129) 01/23/24 20:03 30 01/23/24 20:00 Mechanical Ventilator+ Total Intake and Output 01/22/24 01/22/24 01/23/24 15:00 23:00 07:00 Intake Total 1739.26 ml 798.04 ml 888.1 ml Output Total 1050 ml 1050 ml Balance 1739.26 ml -251.96 ml -161.9 ml medications Current Medications Medications Dose Ordered Sig/Zenon Route Start Time Stop Time Status Last Admin Dose Admin Propofol 100 ml @ 2.7 mls/hr Q24H IV 01/19/24 16:45 01/23/24 19:37 13.5 MLS/HR Norepinephrine Bitartrate 250 ml @ 3.75 mls/hr Q24H IV 01/19/24 19:45 01/21/24 21:45 3.75 MLS/HR Ondansetron HCl 4 mg Q4HP PRN IV 01/19/24 22:00 Enoxaparin Sodium 40 mg DAILY SC 01/20/24 10:00 01/23/24 09:46 40 MG Acetaminophen 650 mg Q6HP PRN PO 01/19/24 22:00 Nitroglycerin 0.4 mg Q5MINP PRN SL 01/19/24 22:00 Morphine Sulfate 2 mg Q30M PRN IV 01/19/24 22:00 Albuterol 2.5 mg Q6HR NEB 01/20/24 18:00 01/23/24 18:20 2.5 MG Ipratropium [place] 0.5 mg Q6HR NEB 01/20/24 18:00 01/23/24 18:20 0.5 MG Pantoprazole Sodium 40 mg DAILY IV 01/21/24 10:00 01/23/24 09:46 40 MG Amlodipine Besylate 10 mg DAILY PO 01/21/24 10:00 01/23/24 12:45 10 MG Lorazepam 1 mg Q5MINP PRN IV 01/20/24 22:15 Fentanyl Citrate 250 ml @ 2.5 mls/hr Q24H IV 01/21/24 00:45 01/22/24 22:41 12.5 MLS/HR Dexmedetomidine HCl 400 mcg/ Dextrose 100 ml @ 4.32 mls/hr Q23H9M IV 01/21/24 09:30 01/23/24 07:30 4.32 MLS/HR Vancomycin HCl 0 ml @ 0 mls/hr UD IV 01/23/24 07:45 Vancomycin HCl 200 ml @ 200 mls/hr Q12H IV 01/23/24 20:00 01/23/24 20:13 200 MLS/HR Dexamethasone Sodium Phosphate 6 mg Q6HR IV 01/23/24 12:15 01/23/24 17:46 6 MG Buspirone HCl 10 mg DAILY GT 01/24/24 10:00 Famotidine 20 mg Q12HR IV 01/23/24 22:00 01/24/24 10:01 01/23/24 21:14 20 MG Nicardipine HCl 50 mg/Sodium Chloride 250 ml @ 25 mls/hr Q10H IV 01/23/24 16:45 Metoprolol Tartrate 75 mg BID PO 01/23/24 22:00 01/23/24 21:14 75 MG Enteral Nutritional Formula 1,000 ml 30ML/HR GT 01/23/24 18:30 01/23/24 21:18 1,000 ML Purified Water 200 ml Q6HR GT 01/24/24 00:00 laboratory and microbiology Laboratory Tests 01/23/24 03:00 Test 01/23/24 03:00 Range/Units Serum Glucose 101 74-106 mg/dL Dietary Evaluation Review Comments: 1) If GI is accessible consider Jevity 1.2 @ 40 ml/hr x 24 hrs goal as tolerated 2) If pt remains NPO >7 days consider PN support to meet at least 75% or estimated needs 3) Advance pt diet when medically feasible 4) Continue current plan of care Expected Outcomes/Goals: 1) Pt to receive nutrition support within 7 days of NPO status 2) Pt diet to advance 3) F/U in 2-3 days YUMIKO BROOKS [facility] Jan 23, 2024 22:11
[2024-01-23] MEDS: FREE WATER GT SCH (23:28)
[2024-01-24] VITALS (105 sets, daily range): BP systolic 105–298; BP diastolic 53–201; PULSE 60–134; RESP 13–42; TEMP 97.7–99.9; O2SAT 94–100
[2024-01-24 04:03] LABS: Chloride 110 mmol/L (98-107); Potassium 4.4 mmol/L (3.5-5.1); Sodium 139 mmol/L (136-145)
[2024-01-24 04:04] LABS: Anion Gap 7 (5-15); Calcium 9.9 mg/dL (8.7-10.4); Carbon Dioxide 22 mmol/L (20-31)
[2024-01-24 04:09] LABS: BUN/Creatinine Ratio 14.1 (10.0-20.0); Blood Urea Nitrogen 12 mg/dL (9-23); Glucose 126 mg/dL (74-106)
[2024-01-24 04:26] LABS: Basophils # (auto) 0 10 ^3/uL (0-0.2); Basophils % (auto) 0.3 % (0.0-2.0); Eosinophils # (auto) 0 10 ^3/uL (0-0.8); Eosinophils % (auto) 0.1 % (0.0-7.0); Hematocrit 39.4 % (36.0-46.0); Hemoglobin 13.6 g/dL (12.2-16.2); Lymphocytes # (auto) 0.6 10 ^3/uL (0.4-5.4); Lymphocytes % (auto) 7.7 % (10.0-50.0); Mean Corpuscular Hemoglobin 33.5 pg (28.0-32.0); Mean Corpuscular Hgb Conc. 34.6 g/dL (32.0-36.0); Mean Corpuscular Volume 96.9 fL (80.0-100.0); Monocytes # (auto) 0.1 10 ^3/uL (0-1.3); Monocytes % (auto) 1.2 % (0.0-12.0); Neutrophils # (auto) 6.8 10 ^3/uL (1.6-8.6); Neutrophils % (auto) 90.7 % (37.0-80.0); Nucleated Red Blood Cells % 0.2 %; Platelet Count (auto) 196 10^3/uL (140-450); Red Blood Cells 4.06 10^6/uL (4.0-5.20); White Blood Cell 7.5 10^3/uL (4.4-10.8)
--- NOTE | 2024-01-24 05:31 | DVH ---
CHEST RADIOGRAPH Indication:pna Technique: Single frontal view of the chest was obtained Comparison: XY CHEST PORTABLE on DOS: 01/23/24, XY CHEST PORTABLE on DOS: 01/22/24, XY CHEST PORTABLE on DOS: 01/21/24, XY CHEST XRAY 1 VIEW on DOS: 01/20/24, XY CHEST PORTABLE on DOS: 01/19/24, XY CHEST PORTABLE on DOS: 01/23/24 FINDINGS: Lines and Tubes: The endotracheal tube terminates 5.4 cm above the toño. The enteric tube courses b elow the left hemidiaphragm and the tip extends outside the field of view. Lungs: Stable mild pulmonary vascular congestion. Pleura: No effusion. No pneumothorax. Cardiomediastinal contours: Unremarkable Bones: No acute osseous abnormality. IMPRESSION: 1. No significant interval change.
[2024-01-24 06:54] LABS: Base Excess -2.5 mmol/L (-2.0-3.0)
[2024-01-24] MEDS ORDERED: VANCOMYCIN 1.25GM/250ML 250 ML IV SCH (08:00)
[2024-01-24] MEDS: busPIRone HCL 10 MG TAB GT SCH (08:36)
--- NOTE | 2024-01-24 10:12 | DVHPN2 ---
Progress Note - Dictate Date Seen: Jan 23, 2024 Medical Necessity Reason Pt with a Central, PICC or Fol: Yes The following are medically ne: Xavier Catheter Reason for xavier catheter: Strict I&O Subjective Patient seen and examined at bedside. Sedated, intubated on mechanical ventilator. Overnight events reviewed. vital signs Vital Sign Date Time Temp Pulse Resp B/P (MAP) Pulse Ox O2 Delivery O2 Flow Rate FiO2 01/24/24 09:53 60 134/73 01/24/24 08:34 18 100 30 01/24/24 08:00 Mechanical Ventilator+ 01/24/24 06:45 98.4 209.1 Total Intake and Output 01/23/24 01/23/24 01/24/24 15:00 23:00 07:00 Intake Total 1724.10 ml 725.1 ml 640.08 ml Output Total 2175 ml 625 ml Balance 1724.10 ml -1449.9 ml 15.08 ml medications Current Medications Medications Dose Ordered Sig/Zenon Route Start Time Stop Time Status Last Admin Dose Admin Propofol 100 ml @ 2.7 mls/hr Q24H IV 01/19/24 16:45 01/24/24 06:37 10.8 MLS/HR Norepinephrine Bitartrate 250 ml @ 3.75 mls/hr Q24H IV 01/19/24 19:45 01/21/24 21:45 3.75 MLS/HR Ondansetron HCl 4 mg Q4HP PRN IV 01/19/24 22:00 Enoxaparin Sodium 40 mg DAILY SC 01/20/24 10:00 01/24/24 08:31 40 MG Acetaminophen 650 mg Q6HP PRN PO 01/19/24 22:00 Nitroglycerin 0.4 mg Q5MINP PRN SL 01/19/24 22:00 Morphine Sulfate 2 mg Q30M PRN IV 01/19/24 22:00 Albuterol 2.5 mg Q6HR NEB 01/20/24 18:00 01/24/24 06:08 2.5 MG Ipratropium [place] 0.5 mg Q6HR NEB 01/20/24 18:00 01/24/24 06:07 0.5 MG Pantoprazole Sodium 40 mg DAILY IV 01/21/24 10:00 01/24/24 08:29 40 MG Amlodipine Besylate 10 mg DAILY PO 01/21/24 10:00 01/24/24 08:37 10 MG Lorazepam 1 mg Q5MINP PRN IV 01/20/24 22:15 Fentanyl Citrate 250 ml @ 2.5 mls/hr Q24H IV 01/21/24 00:45 01/22/24 22:41 12.5 MLS/HR Dexmedetomidine HCl 400 mcg/ Dextrose 100 ml @ 4.32 mls/hr Q23H9M IV 01/21/24 09:30 01/24/24 05:13 4.32 MLS/HR Vancomycin HCl 0 ml @ 0 mls/hr UD IV 01/23/24 07:45 Vancomycin HCl 200 ml @ 200 mls/hr Q12H IV 01/23/24 20:00 01/24/24 08:22 200 MLS/HR Dexamethasone Sodium Phosphate 6 mg Q6HR IV 01/23/24 12:15 01/24/24 05:30 6 MG Buspirone HCl 10 mg DAILY GT 01/24/24 10:00 01/24/24 08:36 10 MG Nicardipine HCl 50 mg/Sodium Chloride 250 ml @ 25 mls/hr Q10H IV 01/23/24 16:45 Metoprolol Tartrate 75 mg BID PO 01/23/24 22:00 01/24/24 08:50 75 MG Enteral Nutritional Formula 1,000 ml 30ML/HR GT 01/23/24 18:30 01/23/24 21:18 1,000 ML Purified Water 200 ml Q6HR GT 01/24/24 00:00 01/24/24 05:30 200 ML objective Gen.: Patient lying in bed in medical ICU. Sedated, intubated on mechanical ventilator. Head: Normocephalic, atraumatic. Eyes: PERRLA. Ears: Normal external anatomy. Throat: Endotracheal tube and orogastric tube in place. Neck: Supple, trachea midline. Chest: Transmitted breath sounds bilaterally. Decreased air entry bilaterally. No wheezing. Bibasilar crackles. Cardiovascular: Positive S1, positive S2. Regular rate and rhythm. Abdomen: Positive bowel sounds in all 4 quadrants. Soft, nontender, nondistended. : Xavier in place. Normal external genitalia. Rectal: Deferred. Skin: Warm, dry. Intact. Extremities: 2+ radial pulses bilaterally. No lower extremity edema. Neuro: Sedated. laboratory and microbiology Laboratory Tests 01/24/24 04:05 01/24/24 03:11 Test 01/24/24 03:11 Range/Units Serum Glucose 126 H 74-106 mg/dL Assessment/Plan Impression: Acute hypoxic respiratory failure On mechanical ventilator Aspiration pneumonia Acute metabolic encephalopathy Mucus plugging causing collapse of the right lung Atelectasis Obesity, BMI 31.1 Hypokalemia Events: Remains on vent support On assist control with respiratory rate of 16, tidal volume 450, PEEP of 5, FiO2 at 30% ABG reviewed, compensated CXR reviewed, demonstrates stable mild pulmonary vascular congestion. No pleural effusion or pneumothorax. Brain MRI: No evidence of acute infarction, intracranial hemorrhage, mass lesion or hydrocephalus. Old lacunar infarct in the right clint. Sedated with Propofol 30, Fentanyl 50 mcg. Off Levophed. Off nicardipine drip. HR in 80s. IV fluids with NS + potassium chloride 20 mEq at 75 ml/hr. CPAP trial with PS 8, PEEP of 5. NIF 31 VC 205 RSBI 39 Labs and imaging reviewed. Rest of plan as noted below. Plan: s/p intubation on mechanical ventilator Head CT: No acute intracranial abnormality. CXR image and report reviewed. CT chest report and images reviewed: Rightward deviation of the mediastinum. Atelectasis with right lower lobe. Possible mucus plugging. Can not rule out superimposed pneumonia. ABG reviewed. Alkalemia due to respiratory alkalosis. Vent settings; assist control with respiratory rate of 16, tidal volume 450, PEEP of 5, FiO2 at 30% Titrate FIO2 to keep O2 saturation above 92%. VAP bundle Daily ABG and CXR while intubated. Sedate for ventilatory synchrony Pressors as necessary for hemodynamic support - off Titrate to keep MAP above 65 mmHg/SBP above 90 mmHg. Continue broad spectrum antibiotics. F/u cultures. F/u RML BAL cultures Monitor renal function due to Acute kidney injury. Monitor electrolytes. Supplement as necessary. Nutritional support. AccuchDANIEL pérez. Nicardipine drip for BP control - on hold GI/DVT prophylaxis. Updated family at bedside regarding management plan. Consent obtained for bronchoscopy. With full knowledge of risks and benefits, mother agreed for bronchoscopy with Bronchoalveolar lavage. Condition: Critical Prognosis: Poor given multiple comorbidities. Rest of plan per hospitalist and other consultants. A total of 35 minutes of critical care time was spent reviewing the patient record, examining the patient, making a diagnostic and therapeutic plan, discussing this plan with the medical personnel, following up on diagnostic studies and following the patient for clinical stability excluding any and all procedures. At least 50% of this time was spent in direct, [id number] contact. Thank you Dr. Ortega for allowing me to participate in this patient's care. Further recommendations will depend on patient's clinical course. Please do not hesitate to contact me if you have any questions or concerns. This medical document was created using an electronic medical record system with [employer] dictation system. Although this document has been carefully reviewed, there may still be some phonetic and typographical errors. These areas are purely typographical due to imperfections of the software programs, and do not reflect any compromise in the patient's medical care. Dietary Evaluation Review Comments: 1) If GI is accessible consider Jevity 1.2 @ 40 ml/hr x 24 hrs goal as tolerated 2) If pt remains NPO >7 days consider PN support to meet at least 75% or estimated needs 3) Advance pt diet when medically feasible 4) Continue current plan of care Expected Outcomes/Goals: 1) Pt to receive nutrition support within 7 days of NPO status 2) Pt diet to advance 3) F/U in 2-3 days Plan discussed with: Other (MARTÍN Mcgovern) Critical Care Time(min): 35 CJ FOY MD Jan 24, 2024 10:12
[2024-01-24 11:39] LABS: Base Excess -3.2 mmol/L (-2.0-3.0)
[2024-01-24] MEDS: EPINEPHrine HCL 0.5 ML NEB NEB ONE (12:15)
--- NOTE | 2024-01-24 13:52 | DVHPN2 ---
Subjective The patient is seen and examined at bedside. No change overnight. Doing better. Reviewed: Care Plan, H&P, Labs, Medications Changes from previous H/P or p: No Changes General: Per HPI Objective Vitals Vital Signs Date Time Temp Pulse Resp B/P (MAP) Pulse Ox O2 Delivery O2 Flow Rate FiO2 01/24/24 12:45 98.8 96 20 150/82 (104) 100 209.8 158/73 (101) 01/24/24 11:30 Mechanical Ventilator+ 30 30 Intake/Output Intake and Output 01/24/24 07:00 Intake Total 3089.28 ml Output Total 2800 ml Balance 289.28 ml Intake Oral 540 ml IV Total 2484.28 ml Tube Feeding 65 ml Output Urine Total 2800 ml # Bowel Movements 2 General Appearance: mild distress HEENT: Atraumatic, PERRLA Lungs: Clear to auscultation, Normal air movement, Other (Mechanical ventilation) Cardiovascular: Normal S1, Normal S2, Other (Sinus tach) Abdomen: Normal bowel sounds, No tenderness, No hepatospenomegaly Genitourinary: No Apparent Abnormalities (Alberts catheterization) Musculoskeletal: Other (No motor removed) Neuro: Other (Unable to assess) Skin: Dry, Intact Psych/Mental Status: Other (Unable to assess) Medications Current Medications Medications Dose Ordered Sig/Zenon Route Start Time Stop Time Status Last Admin Dose Admin Propofol 100 ml @ 2.7 mls/hr Q24H IV 01/19/24 16:45 01/24/24 06:37 10.8 MLS/HR Norepinephrine Bitartrate 250 ml @ 3.75 mls/hr Q24H IV 01/19/24 19:45 01/21/24 21:45 3.75 MLS/HR Ondansetron HCl 4 mg Q4HP PRN IV 01/19/24 22:00 Enoxaparin Sodium 40 mg DAILY SC 01/20/24 10:00 01/24/24 08:31 40 MG Acetaminophen 650 mg Q6HP PRN PO 01/19/24 22:00 Nitroglycerin 0.4 mg Q5MINP PRN SL 01/19/24 22:00 Morphine Sulfate 2 mg Q30M PRN IV 01/19/24 22:00 Albuterol 2.5 mg Q6HR NEB 01/20/24 18:00 01/24/24 11:30 2.5 MG Ipratropium [place] 0.5 mg Q6HR NEB 01/20/24 18:00 01/24/24 11:30 0.5 MG Pantoprazole Sodium 40 mg DAILY IV 01/21/24 10:00 01/24/24 08:29 40 MG Amlodipine Besylate 10 mg DAILY PO 01/21/24 10:00 01/24/24 08:37 10 MG Lorazepam 1 mg Q5MINP PRN IV 01/20/24 22:15 Fentanyl Citrate 250 ml @ 2.5 mls/hr Q24H IV 01/21/24 00:45 01/22/24 22:41 12.5 MLS/HR Dexmedetomidine HCl 400 mcg/ Dextrose 100 ml @ 4.32 mls/hr Q23H9M IV 01/21/24 09:30 01/24/24 05:13 4.32 MLS/HR Vancomycin HCl 0 ml @ 0 mls/hr UD IV 01/23/24 07:45 Vancomycin HCl 200 ml @ 200 mls/hr Q12H IV 01/23/24 20:00 01/24/24 08:22 200 MLS/HR Dexamethasone Sodium Phosphate 6 mg Q6HR IV 01/23/24 12:15 01/24/24 11:46 6 MG Buspirone HCl 10 mg DAILY GT 01/24/24 10:00 01/24/24 08:36 10 MG Nicardipine HCl 50 mg/Sodium Chloride 250 ml @ 25 mls/hr Q10H IV 01/23/24 16:45 Metoprolol Tartrate 75 mg BID PO 01/23/24 22:00 01/24/24 08:50 75 MG Enteral Nutritional Formula 1,000 ml 30ML/HR GT 01/23/24 18:30 01/23/24 21:18 1,000 ML Purified Water 200 ml Q6HR GT 01/24/24 00:00 01/24/24 05:30 200 ML Laboratory Results Laboratory Tests 01/24/24 03:11 01/24/24 04:05 Chemistry Test 01/24/24 03:11 01/24/24 05:16 Calcium Level 9.9 mg/dL (8.7-10.4) Magnesium Level 2.4 mg/dL (1.6-2.6) Urinalysis Test 01/19/24 18:15 Urine Color Colorless (Yellow) Urine Clarity Clear (Clear) Urine pH 6.5 (5.0-9.0) Urine Specific [place] 1.031 (1.001-1.035) Urine Protein Negative (Negative) Urine Ketones Negative (Negative) Urine Blood Negative /uL (Negative) Urine Nitrite Negative (Negative) Urine Bilirubin Negative (Negative) Urine Urobilinogen Normal mg/dL (Negative) Urine Leukocyte Esterase Negative /uL (Negative) Urine RBC 1 /hpf (0 - 4) Urine WBC <1 /hpf (0 - 5) Urine Squamous Epithelial Cells Few /hpf (<5) Urine Bacteria None seen /hpf (None Seen) Urine Glucose Normal mg/dL (Normal) Blood Gas Results Test 01/24/24 06:49 01/24/24 11:35 Arterial Blood pH 7.415 (7.350-7.450) 7.430 (7.350-7.450) FiO2 % 30.0 30.0 Microbiology Microbiology Date/Time Source Procedure Growth Status 01/20/24 19:37 Blood Blood Culture - Preliminary NO GROWTH AFTER 72 HOURS OF INCUBATION. Resulted 01/20/24 19:15 Nose MRSA Screen - Final Complete 01/19/24 20:48 Bronchial Washings Gram Stain - Final Complete 01/19/24 20:48 Respiratory Culture - Final Staphylococcus aureus Complete Labs and/or images reviewed: Labs reviewed by me Assessment/Plan Assessment/Plan -acute hypoxic respiratory failure on mechanical ventilation , now extubated -probable aspiration pneumonia -breakthrough seizure activity -history of anxiety disorder, probable other underlying psychosis, not otherwise specified -obesity -leukocytosis, probable sepsis -right upper bronchus occlusion secondary to mucus plugging -accelerated hypertension -acute kidney injury Plan: Continuing current management. The patient is just extubate. We will get swallow eval in restart diet if patient passed swallow eval. Continuing nicardipine drip for blood pressure control. We will wean if the pressure better controlled. Continuing with metoprolol, amlodipine, lisinopril. Continuing with bronchodilators and Mucomyst. Pulmonology input appreciated Plan discussed with: Patient Date of Service: Jan 24, 2024 Billing Provider: KING TORRES MD Common Visit Codes: [id number] INP/OBS CARE(HIGH) KING TORRES MD Jan 24, 2024 13:52
--- NOTE | 2024-01-24 23:04 | DVHINCON2 ---
DATE OF CONSULTATION: 01/24/2024 PULMONARY FOLLOWUP I am covering for Dr. Valdez. HISTORY OF PRESENT ILLNESS: The patient was seen in the morning. The patient was on a CPAP trial. History, past medical history, medications, allergies were reviewed. The patient was doing well on CPAP as she was pulling tidal volumes of about 450 with a respiratory rate about 18-20. She was in no distress. She was awake and alert. She was denying any respiratory distress. Vital signs were maintained. The patient's bedside RN says she has mild secretions, no fevers. No hemodynamic compromise. Urine output has been stable given the orders to extubate the patient. PHYSICAL EXAMINATION: VITAL SIGNS: Reveal vital sign stable. T max of 99, blood pressure was 140/70, but heart rate was 100, respiratory rate was 20. NECK: Supple. No JVD. CHEST: Reveals mild bibasilar rales, no wheezing. Air entry fair. ABDOMEN: Soft, nontender. No organomegaly. EXTREMITIES: No edema or clubbing. LABORATORY WORK: Reviewed. CBC largely unremarkable. Blood gases on CPAP, pH 7.43, pCO2 31, pO2 107, this was on CPAP, pressure support of 8, peep of 5 and 30%. Serum chemistry significant for chloride 110, glucose 126, rest was noted previously. LFTs were unremarkable. BNP was 25. Chest x-ray shows mild pulmonary venous congestion. ASSESSMENT: Acute respiratory failure, history of aspiration pneumonia, metabolic encephalopathy, mucus plugging with right lung collapse. PLAN: At this time, is to extubate the patient. Incentive spirometry, minimize or avoid any sedation. At the current time, continue Med nebs. Continue antibiotics. The patient is on vancomycin. Continue Lovenox for DVT prophylaxis. Overall, critical time 33 minutes. Salazar Gardner MD /PAR TID: [id number] RECEIPT: [id number] cc: Dorota Stephens
[2024-01-25] VITALS (57 sets, daily range): BP systolic 113–164; BP diastolic 60–97; PULSE 64–139; RESP 11–49; TEMP 97.8–99.3; O2SAT 95–100
[2024-01-25 04:19] LABS: Basophils # (auto) 0 10 ^3/uL (0-0.2); Basophils % (auto) 0.2 % (0.0-2.0); Eosinophils # (auto) 0 10 ^3/uL (0-0.8); Hematocrit 38.2 % (36.0-46.0); Hemoglobin 13.2 g/dL (12.2-16.2); Lymphocytes # (auto) 0.7 10 ^3/uL (0.4-5.4); Lymphocytes % (auto) 6.8 % (10.0-50.0); Mean Corpuscular Hemoglobin 33.5 pg (28.0-32.0); Mean Corpuscular Hgb Conc. 34.6 g/dL (32.0-36.0); Mean Corpuscular Volume 96.8 fL (80.0-100.0); Monocytes # (auto) 0.6 10 ^3/uL (0-1.3); Monocytes % (auto) 5.3 % (0.0-12.0); Neutrophils # (auto) 9.5 10 ^3/uL (1.6-8.6); Neutrophils % (auto) 87.7 % (37.0-80.0); Platelet Count (auto) 192 10^3/uL (140-450); Red Blood Cells 3.95 10^6/uL (4.0-5.20); Red Cell Distribution Width 13.8 % (11.8-14.3); White Blood Cell 10.8 10^3/uL (4.4-10.8)
[2024-01-25 04:26] LABS: Anion Gap 10 (5-15); Carbon Dioxide 23 mmol/L (20-31); Chloride 111 mmol/L (98-107); Potassium 3.8 mmol/L (3.5-5.1); Sodium 144 mmol/L (136-145)
[2024-01-25 04:27] LABS: Calcium 10.3 mg/dL (8.7-10.4)
[2024-01-25 04:32] LABS: BUN/Creatinine Ratio 23.9 (10.0-20.0); Blood Urea Nitrogen 21 mg/dL (9-23); Glucose 105 mg/dL (74-106)
[2024-01-25 04:33] LABS: Magnesium 2.4 mg/dL (1.6-2.6)
--- NOTE | 2024-01-25 13:32 | DVHPN2 ---
Subjective The patient is seen and examined at bedside. Feeling better today. Weaned off nicardipine drip Reviewed: Care Plan, H&P, Labs, Medications Changes from previous H/P or p: No Changes General: Per HPI Objective Vitals Vital Signs Date Time Temp Pulse Resp B/P (MAP) Pulse Ox O2 Delivery O2 Flow Rate FiO2 01/25/24 11:48 92 18 100 01/25/24 10:00 Room Air* 0 21 01/25/24 09:44 155/80 01/25/24 06:45 98.6 209.5 Intake/Output Intake and Output 01/25/24 07:00 Intake Total 590.36 ml Output Total 2625 ml Balance -2034.64 ml Intake Oral 30 ml IV Total 550.36 ml Tube Feeding 10 ml Output Urine Total 2625 ml # Bowel Movements 2 General Appearance: mild distress HEENT: Atraumatic, PERRLA Lungs: Clear to auscultation, Normal air movement, Other (Mechanical ventilation) Cardiovascular: Normal S1, Normal S2, Other (Sinus tach) Abdomen: Normal bowel sounds, No tenderness, No hepatospenomegaly Genitourinary: No Apparent Abnormalities (Alberts catheterization) Musculoskeletal: Other (No motor removed) Neuro: Other (Unable to assess) Skin: Dry, Intact Psych/Mental Status: Other (Unable to assess) Medications Current Medications Medications Dose Ordered Sig/Zenon Route Start Time Stop Time Status Last Admin Dose Admin Ondansetron HCl 4 mg Q4HP PRN IV 01/19/24 22:00 Enoxaparin Sodium 40 mg DAILY SC 01/20/24 10:00 01/25/24 09:38 40 MG Acetaminophen 650 mg Q6HP PRN PO 01/19/24 22:00 Nitroglycerin 0.4 mg Q5MINP PRN SL 01/19/24 22:00 Morphine Sulfate 2 mg Q30M PRN IV 01/19/24 22:00 Albuterol 2.5 mg Q6HR NEB 01/20/24 18:00 01/25/24 11:38 2.5 MG Ipratropium [place] 0.5 mg Q6HR NEB 01/20/24 18:00 01/25/24 11:38 0.5 MG Pantoprazole Sodium 40 mg DAILY IV 01/21/24 10:00 01/25/24 09:38 40 MG Amlodipine Besylate 10 mg DAILY PO 01/21/24 10:00 01/25/24 09:38 10 MG Lorazepam 1 mg Q5MINP PRN IV 01/20/24 22:15 Vancomycin HCl 0 ml @ 0 mls/hr UD IV 01/23/24 07:45 Vancomycin HCl 200 ml @ 200 mls/hr Q12H IV 01/23/24 20:00 01/25/24 08:03 200 MLS/HR Dexamethasone Sodium Phosphate 6 mg Q6HR IV 01/23/24 12:15 01/25/24 11:54 6 MG Buspirone HCl 10 mg DAILY GT 01/24/24 10:00 01/25/24 09:38 10 MG Nicardipine HCl 50 mg/Sodium Chloride 250 ml @ 25 mls/hr Q10H IV 01/23/24 16:45 Metoprolol Tartrate 75 mg BID PO 01/23/24 22:00 01/25/24 09:44 75 MG Purified Water 200 ml Q6HR GT 01/24/24 00:00 01/24/24 05:30 200 ML Lorazepam 0.5 mg Q6HP PRN IV 01/24/24 15:00 Laboratory Results Laboratory Tests 01/25/24 03:03 Chemistry Test 01/25/24 03:03 Calcium Level 10.3 mg/dL (8.7-10.4) Magnesium Level 2.4 mg/dL (1.6-2.6) Urinalysis Test 01/19/24 18:15 Urine Color Colorless (Yellow) Urine Clarity Clear (Clear) Urine pH 6.5 (5.0-9.0) Urine Specific [place] 1.031 (1.001-1.035) Urine Protein Negative (Negative) Urine Ketones Negative (Negative) Urine Blood Negative /uL (Negative) Urine Nitrite Negative (Negative) Urine Bilirubin Negative (Negative) Urine Urobilinogen Normal mg/dL (Negative) Urine Leukocyte Esterase Negative /uL (Negative) Urine RBC 1 /hpf (0 - 4) Urine WBC <1 /hpf (0 - 5) Urine Squamous Epithelial Cells Few /hpf (<5) Urine Bacteria None seen /hpf (None Seen) Urine Glucose Normal mg/dL (Normal) Microbiology Microbiology Date/Time Source Procedure Growth Status 01/20/24 19:37 Blood Blood Culture - Preliminary NO GROWTH AFTER 72 HOURS OF INCUBATION. Resulted 01/20/24 19:15 Nose MRSA Screen - Final Complete 01/19/24 20:48 Bronchial Washings Gram Stain - Final Complete 01/19/24 20:48 Respiratory Culture - Final Staphylococcus aureus Complete Labs and/or images reviewed: Labs reviewed by me Assessment/Plan Assessment/Plan -acute hypoxic respiratory failure on mechanical ventilation , now extubated -probable aspiration pneumonia -breakthrough seizure activity -history of anxiety disorder, probable other underlying psychosis, not otherwise specified -obesity -leukocytosis, probable sepsis -right upper bronchus occlusion secondary to mucus plugging -accelerated hypertension -acute kidney injury Plan: Continuing current management. The patient passed swallow eval and restart diet. I will discontinuing the a line and the central line in the groin area. Continuing with metoprolol, amlodipine, lisinopril. Continuing with bronchodilators and Mucomyst. Pulmonology input appreciated. Downgrade to telemetry Plan discussed with: Patient My Orders Orders - KING TORRES MD Procedure Category Date Status Time Lorazepam 2mg/Ml Inj PHA 01/24/24 In Process (Ativan Inj) 15:00 * Swallow Request ST 01/24/24 Transmitted 14:54 Pt Request For Service PT 01/24/24 Logged 14:54 Insert Midline ORDERS 01/25/24 Transmitted 07:43 D/C Triple Lumen ORDERS 01/25/24 Transmitted 10:32 Discontinue A-Line ORDERS 01/25/24 Transmitted 10:32 Transfer Orders XFER 01/25/24 Transmitted 10:32 Date of Service: Jan 25, 2024 Billing Provider: KING TORRES MD Common Visit Codes: [id number] INP/OBS CARE(HIGH) KING TORRES MD Jan 25, 2024 13:32
--- NOTE | 2024-01-25 18:49 | DVHPN ---
DATE: 01/25/2024 PULMONARY FOLLOWUP SUBJECTIVE: The patient seen in the afternoon. The patient was extubated yesterday, now doing well, was on room air. Denied any respiratory distress. The patient's family was at bedside. Denies any significant cough or expectoration. PHYSICAL EXAMINATION: VITAL SIGNS: Afebrile, heart rate 70, respiratory rate is 16, blood pressure 130/80, pulse ox 97 on room air. GENERAL: Awake, alert. HEENT: Unremarkable, moderate oropharyngeal crowding. Tongue moist. CHEST EXAMINATION: Reveals minimal rales at bases. ABDOMEN: Soft, nontender. No organomegaly. COR: S1, S2. No murmurs. EXTREMITIES: No edema or clubbing. NEUROLOGICALLY: Awake, oriented, moving extremities. LAB WORK: CBC, largely unremarkable. Blood gases from yesterday were reviewed. BMP, chloride 111. Rest was noted. No new x-rays. Cultures, one of the sputum cultures was positive for Staph aureus. The patient has no clinical signs of any significant infection at the current time. PLAN: We will recommend incentive spirometry, physical therapy. Ambulate as tolerated. Advance diet as tolerated. Minimize any sedation. Rest of the medical management per response. Dr. Valdez will resume pulmonary care in the morning. The patient remains on Med nebs. Salazar Gardner MD TID: [id number] RECEIPT: [id number]
[2024-01-26] VITALS (21 sets, daily range): BP systolic 135–150; BP diastolic 67–92; PULSE 63–90; RESP 15–23; TEMP 98.1–98.7; O2SAT 93–100
[2024-01-26 04:04] LABS: Basophils # (auto) 0 10 ^3/uL (0-0.2); Basophils % (auto) 0.2 % (0.0-2.0); Eosinophils # (auto) 0 10 ^3/uL (0-0.8); Eosinophils % (auto) 0.1 % (0.0-7.0); Hematocrit 39.4 % (36.0-46.0); Hemoglobin 13.6 g/dL (12.2-16.2); Lymphocytes % (auto) 10.9 % (10.0-50.0); Mean Corpuscular Hemoglobin 33.5 pg (28.0-32.0); Mean Corpuscular Hgb Conc. 34.5 g/dL (32.0-36.0); Monocytes # (auto) 1.1 10 ^3/uL (0-1.3); Neutrophils # (auto) 7.1 10 ^3/uL (1.6-8.6); Neutrophils % (auto) 76.8 % (37.0-80.0); Platelet Count (auto) 206 10^3/uL (140-450); Red Blood Cells 4.06 10^6/uL (4.0-5.20); Red Cell Distribution Width 13.6 % (11.8-14.3); White Blood Cell 9.3 10^3/uL (4.4-10.8)
--- NOTE | 2024-01-26 08:34 | DVHPN2 ---
Progress Note - Dictate Date Seen: Jan 26, 2024 Medical Necessity Reason Pt with a Central, PICC or Fol: Yes The following are medically ne: Xavier Catheter Reason for xavier catheter: Strict I&O Subjective Ms. Samaniego is a 58 years old right-handed female with a history of hypertension, anxiety, the patient was admitted on 01/17/2024 to the [facility] [place] with a chief company of altered mental state, seizure activity. I have seen and examined the patient, have discussed with her nurse and other medical staff. She was awake, sitting in the chair, she is oriented to person only, her speech is clear, but she is not able to provide history Her daughter in the room UDS, 01/19/2024: Negative Urinalysis, 01/19/2024: Unremarkable ABG, 01/19/2024: Respiratory alkalosis WBC/HB/PLT/MCV, 01/20/2024: 16.3/16.2/219/96.6 CMP, 01/20/2024: Normal EEG 01/21/2024: a remarkably abnormal EEG X-ray, left elbow, 01/22/24: There is no evidence of acute fracture or dislocation. Soft tissues are unremarkable. Chest ray, 01/19/24: Endotracheal tube projects 5.7 cm superior to the toño. Enteric tube projects terminating within the stomach. Opacification of the right lower lung zone concerning for atelectasis with superimposed infection not excluded. There is mild rightward deviation of the mediastinum. CXR, 01/21/24: 1. Pulmonary congestion. 2. Stable position of the support lines and tubes CT head, 01/19/2024: No evidence of acute intracranial abnormality. Nonspecific partially empty sella CTA head, neck, 01/19/2024: 1. No large vessel occlusion or high-grade stenosis in the arteries of the head and neck. 2. 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 3. Large amount of fluid in the oropharynx and nasopharynx. Fluid is seen in the dependent portion of trachea. Pulmonary opacities in the right upper lobe and asymmetric reduction in right lung volume. Aspiration pneumonia can not be ruled out. Recommend suctioning of the fluid in oropharynx and trachea MRI head, 01/21/2024: No evidence of acute infarction, intracranial hemorrhage, mass lesion or hydrocephalus. Old lacunar infarct in the right clint. Empty sella. vital signs Vital Sign Date Time Temp Pulse Resp B/P (MAP) Pulse Ox O2 Delivery O2 Flow Rate FiO2 01/26/24 06:00 63 20 138/87 (104) 99 01/26/24 06:00 Room Air* 0 21 01/26/24 04:00 98.2 98.2 Total Intake and Output 01/25/24 01/25/24 01/26/24 15:00 23:00 07:00 Intake Total 200 ml 275 ml 480 ml Output Total 775 ml 650 ml Balance 200 ml -500 ml -170 ml medications Current Medications Medications Dose Ordered Sig/Zenon Route Start Time Stop Time Status Last Admin Dose Admin Ondansetron HCl 4 mg Q4HP PRN IV 01/19/24 22:00 Enoxaparin Sodium 40 mg DAILY SC 01/20/24 10:00 01/25/24 09:38 40 MG Acetaminophen 650 mg Q6HP PRN PO 01/19/24 22:00 Nitroglycerin 0.4 mg Q5MINP PRN SL 01/19/24 22:00 Morphine Sulfate 2 mg Q30M PRN IV 01/19/24 22:00 Albuterol 2.5 mg Q6HR NEB 01/20/24 18:00 01/26/24 05:52 2.5 MG Ipratropium [place] 0.5 mg Q6HR NEB 01/20/24 18:00 01/26/24 05:52 0.5 MG Pantoprazole Sodium 40 mg DAILY IV 01/21/24 10:00 01/25/24 09:38 40 MG Amlodipine Besylate 10 mg DAILY PO 01/21/24 10:00 01/25/24 09:38 10 MG Lorazepam 1 mg Q5MINP PRN IV 01/20/24 22:15 Vancomycin HCl 0 ml @ 0 mls/hr UD IV 01/23/24 07:45 Vancomycin HCl 200 ml @ 200 mls/hr Q12H IV 01/23/24 20:00 01/25/24 20:14 200 MLS/HR Buspirone HCl 10 mg DAILY GT 01/24/24 10:00 01/25/24 09:38 10 MG Nicardipine HCl 50 mg/Sodium Chloride 250 ml @ 25 mls/hr Q10H IV 01/23/24 16:45 Metoprolol Tartrate 75 mg BID PO 01/23/24 22:00 01/25/24 21:21 75 MG Purified Water 200 ml Q6HR GT 01/24/24 00:00 01/25/24 17:44 200 ML Lorazepam 0.5 mg Q6HP PRN IV 01/24/24 15:00 objective The patient is well-nourished and well-developed with no distress. MENTAL STATUS: Possibly responsive to light painful stimuli CRANIAL NERVES: Pupils are equal round and reactive to light briskly, normal external eye movement, normal sensation and motor examination in the lateral trigeminal nerve distribution, no facial weakness. SENSATION: Okay to pinprick and light touch MOTOR: Normal tone in the upper and lower extremity. Normal muscle bulk. No fasciculations. Moves the arms and the legs REFLEXES: Deep tendon reflexes are symmetrical. No pathological reflexes. CEREBELLAR/COORDINATION: Deferred GAIT/STATION: deferred. laboratory and microbiology Laboratory Tests 01/26/24 03:46 01/25/24 03:03 Test 01/25/24 03:03 Range/Units Serum Glucose 105 74-106 mg/dL Problem List Grand mal seizure Status epileptics Metabolic encephalopathy Respiratory failure Brain aneurysm Fever/sepsis Left elbow pain Assessment/Plan Monitoring Supportive treatment ICU care Left elbow X-ray Stabilize vitals Respiratory support/vent management Oxygen IV antibiotics Ativan for seizure breakthrough DVT prophylaxis Keppra 500mg bid More recommendation per clinical course This medical document was created using an electronic medical record system with [employer] dictation system. Although this document has been carefully reviewed, there may still be some phonetic and typographical errors. These areas are purely typographical due to imperfections of the software programs, and do not reflect any compromise in the patient's medical car Prognosis poor Dietary Evaluation Review Comments: 1) If GI is accessible consider Jevity 1.2 @ 40 ml/hr x 24 hrs goal as tolerated 2) If pt remains NPO >7 days consider PN support to meet at least 75% or estimated needs 3) Advance pt diet when medically feasible 4) Continue current plan of care Expected Outcomes/Goals: 1) Pt to receive nutrition support within 7 days of NPO status 2) Pt diet to advance 3) F/U in 2-3 days Plan discussed with: Daughter, Other RAPHAEL LR MD Jan 26, 2024 08:34
[2024-01-26] MEDS ORDERED: ACETAMINOPHEN 500 MG TAB PO PRN (08:45)
[2024-01-26] MEDS ORDERED: DOCUSATE SOD 100 MG CAP PO PRN (08:45)
[2024-01-26] MEDS ORDERED: IPRATROPIUM BROM 0.5 MG/2.5ML INH SOL NEB PRN (08:45)
[2024-01-26] MEDS ORDERED: ALBUTEROL SULF 2.5 MG/0.5ML(0.5%) NEB SOLN NEB PRN (08:45)
[2024-01-26] MEDS ORDERED: HYDROcodone-ACET 5/325MG TAB PO PRN (08:45)
[2024-01-26] MEDS ORDERED: ONDANSETRON HCL 4 MG/2 ML VIAL IV PRN (08:45)
--- NOTE | 2024-01-26 08:59 | DVHPN2 ---
Subjective Alert. Denies any symptoms Reviewed: Care Plan, H&P, Labs, Medications Changes from previous H/P or p: Changes General: Per HPI Objective Vitals Vital Signs Date Time Temp Pulse Resp B/P (MAP) Pulse Ox O2 Delivery O2 Flow Rate FiO2 01/26/24 06:00 63 20 138/87 (104) 99 01/26/24 06:00 Room Air* 0 21 01/26/24 04:00 98.2 98.2 Intake/Output Intake and Output 01/26/24 07:00 Intake Total 955 ml Output Total 1425 ml Balance -470 ml Intake Oral 555 ml IV Total 400 ml Tube Feeding 0 ml Output Urine Total 1425 ml # Bowel Movements 2 General Appearance: Alert, Oriented X3, No acute distress HEENT: Atraumatic, PERRLA Lungs: Clear to auscultation, Normal air movement, Other (Mechanical ventilation) Cardiovascular: Normal S1, Normal S2, Other (Sinus tach) Abdomen: Normal bowel sounds, No tenderness, No hepatospenomegaly Genitourinary: No Apparent Abnormalities (Alberts catheterization) Musculoskeletal: Other (No motor removed) Neuro: Other (Unable to assess) Skin: Dry, Intact Psych/Mental Status: Other (Unable to assess) Medications Current Medications Medications Dose Ordered Sig/Zenon Route Start Time Stop Time Status Last Admin Dose Admin Ondansetron HCl 4 mg Q4HP PRN IV 01/19/24 22:00 Enoxaparin Sodium 40 mg DAILY SC 01/20/24 10:00 01/25/24 09:38 40 MG Acetaminophen 650 mg Q6HP PRN PO 01/19/24 22:00 Nitroglycerin 0.4 mg Q5MINP PRN SL 01/19/24 22:00 Morphine Sulfate 2 mg Q30M PRN IV 01/19/24 22:00 Albuterol 2.5 mg Q6HR NEB 01/20/24 18:00 01/26/24 05:52 2.5 MG Ipratropium [place] 0.5 mg Q6HR NEB 01/20/24 18:00 01/26/24 05:52 0.5 MG Pantoprazole Sodium 40 mg DAILY IV 01/21/24 10:00 01/25/24 09:38 40 MG Amlodipine Besylate 10 mg DAILY PO 01/21/24 10:00 01/25/24 09:38 10 MG Lorazepam 1 mg Q5MINP PRN IV 01/20/24 22:15 Vancomycin HCl 0 ml @ 0 mls/hr UD IV 01/23/24 07:45 Vancomycin HCl 200 ml @ 200 mls/hr Q12H IV 01/23/24 20:00 01/25/24 20:14 200 MLS/HR Buspirone HCl 10 mg DAILY GT 01/24/24 10:00 01/25/24 09:38 10 MG Nicardipine HCl 50 mg/Sodium Chloride 250 ml @ 25 mls/hr Q10H IV 01/23/24 16:45 Metoprolol Tartrate 75 mg BID PO 01/23/24 22:00 01/25/24 21:21 75 MG Purified Water 200 ml Q6HR GT 01/24/24 00:00 01/25/24 17:44 200 ML Lorazepam 0.5 mg Q6HP PRN IV 01/24/24 15:00 Laboratory Results Laboratory Tests 01/25/24 03:03 01/26/24 03:46 Urinalysis Test 01/19/24 18:15 Urine Color Colorless (Yellow) Urine Clarity Clear (Clear) Urine pH 6.5 (5.0-9.0) Urine Specific [place] 1.031 (1.001-1.035) Urine Protein Negative (Negative) Urine Ketones Negative (Negative) Urine Blood Negative /uL (Negative) Urine Nitrite Negative (Negative) Urine Bilirubin Negative (Negative) Urine Urobilinogen Normal mg/dL (Negative) Urine Leukocyte Esterase Negative /uL (Negative) Urine RBC 1 /hpf (0 - 4) Urine WBC <1 /hpf (0 - 5) Urine Squamous Epithelial Cells Few /hpf (<5) Urine Bacteria None seen /hpf (None Seen) Urine Glucose Normal mg/dL (Normal) Microbiology Microbiology Date/Time Source Procedure Growth Status 01/20/24 19:37 Blood Blood Culture - Final NO GROWTH AFTER 5 DAYS OF INCUBATION. Complete 01/20/24 19:15 Nose MRSA Screen - Final Complete 01/19/24 20:48 Bronchial Washings Gram Stain - Final Complete 01/19/24 20:48 Respiratory Culture - Final Staphylococcus aureus Complete Labs and/or images reviewed: Labs reviewed by me, Image(s) reviewed by me Assessment/Plan Assessment/Plan LImpression: -acute hypoxic respiratory failure on mechanical ventilation -probable aspiration pneumonia -breakthrough seizure activity -history of anxiety disorder, probable other underlying psychosis, not otherwise specified -obesity -leukocytosis, probable sepsis -right upper bronchus occlusion secondary to mucus plugging -accelerated hypertension -acute kidney injury Plan: Events: extubated. OOB. Telemetry status. -continue mechanical ventilation CPAP trial once awake and able. -continue Precedex -bronchodilators q.6 hours, add Mucomyst q.6 hours -Antihypertensives: Metoprolol, Amlodipine -PUD, DVT prophylaxis -repeat labs in a.m. -consultations: Pulmonology, neurology Total time spent with patient discussing and formulating plan of care: 90 minutes. This does not include time spent performing procedures. This medical document was created using an electronic medical record system with [employer] dictation system. Although this document has been carefully reviewed, there may still be some phonetic and typographical errors. These areas are purely typographical due to imperfections of the software programs, and do not reflect any compromise in the patient's medical care. 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 - PIA HEATH NP Procedure Category Date Status Time Vancomycin,Trough LAB 01/26/24 Logged 19:00 Vancomycin Per PAZ 01/25/24 In Process Pharmacy Protoc 09:36 Buspirone Hcl Tablet PHA 01/26/24 Logged (Buspar Tablet) 10:00 Morphine Sulfate PHA 01/26/24 Logged Injection 08:45 Hydrocodone-Acet PHA 01/26/24 Logged 5/325mg Tab ([place] 08:45 Acetaminophen Tablet PHA 01/26/24 Logged (Tylenol Tablet) 08:45 Ondansetron Hcl PHA 01/26/24 Logged (Zofran) 08:45 Docusate Sodium PHA 01/26/24 Logged Capsule ([place] 08:45 Albuterol Medneb PHA 01/26/24 Logged (Ventolin Medneb) 08:45 Ipratropium Medneb PHA 01/26/24 Logged (Atrovent Medneb) 08:45 Doxycycline Tablet PHA 01/26/24 Logged (Vibramycin Tablet) 10:00 D/C Alberts PAZ 01/26/24 In Process 08:53 Date of Service: Jan 26, 2024 Billing Provider: PIA HEATH NP Common Visit Codes: [id number] INP/OBS CARE(HIGH) PIA HEATH [employer] Jan 26, 2024 08:59
[2024-01-26] MEDS: busPIRone HCL 10 MG TAB PO SCH (10:20)
[2024-01-26] MEDS: DOXYCYCLINE 100 MG TAB/CAP PO SCH (10:31)
[2024-01-26] MEDS: levETIRAcetam 500 mg/100ml 100 ML IV SCH (10:31)
--- NOTE | 2024-01-26 21:50 | DVHPN2 ---
Progress Note - Dictate Date Seen: Jan 26, 2024 Medical Necessity Reason Pt with a Central, PICC or Fol: Yes The following are medically ne: Xavier Catheter Reason for xavier catheter: Strict I&O Subjective Patient seen and examined at bedside. S/p extubation on 01/23, currently on room air. Overnight events reviewed. vital signs Vital Sign Date Time Temp Pulse Resp B/P (MAP) Pulse Ox O2 Delivery O2 Flow Rate FiO2 01/26/24 21:00 98.1 76 19 136/85 (102) 97 98.1 01/26/24 18:29 Room Air* 0 21 Total Intake and Output 01/25/24 01/25/24 01/26/24 15:00 23:00 07:00 Intake Total 200 ml 275 ml 480 ml Output Total 775 ml 650 ml Balance 200 ml -500 ml -170 ml medications Current Medications Medications Dose Ordered Sig/Zenon Route Start Time Stop Time Status Last Admin Dose Admin Enoxaparin Sodium 40 mg DAILY SC 01/20/24 10:00 01/26/24 09:52 40 MG Nitroglycerin 0.4 mg Q5MINP PRN SL 01/19/24 22:00 Morphine Sulfate 2 mg Q30M PRN IV 01/19/24 22:00 Pantoprazole Sodium 40 mg DAILY IV 01/21/24 10:00 01/26/24 09:47 40 MG Amlodipine Besylate 10 mg DAILY PO 01/21/24 10:00 01/26/24 09:50 10 MG Lorazepam 1 mg Q5MINP PRN IV 01/20/24 22:15 Metoprolol Tartrate 75 mg BID PO 01/23/24 22:00 01/26/24 09:53 75 MG Lorazepam 0.5 mg Q6HP PRN IV 01/24/24 15:00 Buspirone HCl 10 mg DAILY PO 01/26/24 10:00 01/26/24 10:20 10 MG Morphine Sulfate 1 mg Q4HPRN PRN IV 01/26/24 08:45 Acetaminophen/ Hydrocodone Bitart 1 tab Q6HPRN PRN PO 01/26/24 08:45 Acetaminophen 500 mg Q8HP PRN PO 01/26/24 08:45 Ondansetron HCl 4 mg Q6HP PRN IV 01/26/24 08:45 Docusate Sodium 100 mg BID PRN PO 01/26/24 08:45 Albuterol 2.5 mg Q4HPRN PRN NEB 01/26/24 08:45 Ipratropium [place] 0.5 mg Q4HPRN PRN NEB 01/26/24 08:45 Doxycycline Monohydrate 100 mg Q12HR PO 01/26/24 10:00 01/26/24 10:31 100 MG Levetiracetam 100 ml @ 400 mls/hr BID IV 01/26/24 10:00 01/26/24 10:31 400 MLS/HR objective Gen.: Patient lying in bed in no apparent distress. Breathing on room air. Head: Normocephalic, atraumatic. Eyes: EOMI/PERRLA. Ears: Normal hearing. Normal anatomy. Neck/trachea: Trachea midline, supple. Nose: Normal external anatomy. Mouth: Moist mucous membranes. Chest: Decreased air entry bilaterally. No wheezing or rhonchi. Cardiovascular: Positive S1, positive S2. Regular rate and rhythm. Abdomen: Positive bowel sounds in all 4 quadrants. Soft, non-tender, non- distended. : Deferred. Rectal: Deferred. Skin: Warm, dry. Intact. Extremities: 2+ radial pulses bilaterally. No lower extremity edema. Neuro: Awake, alert, oriented x3. No gross motor or sensory deficits. Cranial nerves II through XII intact. Gait not assessed. laboratory and microbiology Laboratory Tests 01/26/24 03:46 01/25/24 03:03 Test 01/25/24 03:03 Range/Units Serum Glucose 105 74-106 mg/dL Assessment/Plan Impression: Acute hypoxic respiratory failure On mechanical ventilator Aspiration pneumonia Acute metabolic encephalopathy Mucus plugging causing collapse of the right lung Atelectasis Obesity, BMI 31.1 Hypokalemia Events: s/p extubation on 01/23 Currently on room air No respiratory distress. No new respiratory complaints. Patient is stable from the pulmonary standpoint for downgrade to floor. Off sedation Off pressors Continue antibiotics - doxycycline Continue bronchodilators Keppra for seizure prophylaxis Anxiolytic Off nicardipine drip. Labs and imaging reviewed. Rest of plan as noted below. Plan: s/p extubation on 01/[address] On room air Head CT: No acute intracranial abnormality. CXR on 01/23 reviewed, demonstrates stable mild pulmonary vascular congestion. No pleural effusion or pneumothorax. ABG reviewed, compensated Off sedation Pressors as necessary for hemodynamic support - currently off Titrate to keep MAP above 65 mmHg/SBP above 90 mmHg. Continue antibiotics. S/p bronchoscopy with Bronchoalveolar lavage. RML BAL cultures grew Staph aureus Blood cultures show no growth Monitor renal function due to Acute kidney injury. Monitor electrolytes. Supplement as necessary. Nutritional support. Accucheks, ISS. Nicardipine drip for BP control - on hold GI/DVT prophylaxis. Prognosis: Poor given multiple comorbidities. Rest of plan per hospitalist and other consultants. Thank you Dr. Ortega for allowing me to participate in this patient's care. Further recommendations will depend on patient's clinical course. Please do not hesitate to contact me if you have any questions or concerns. This medical document was created using an electronic medical record system with [employer] dictation system. Although this document has been carefully reviewed, there may still be some phonetic and typographical errors. These areas are purely typographical due to imperfections of the software programs, and do not reflect any compromise in the patient's medical care. Dietary Evaluation Review Comments: 1) If GI is accessible consider Jevity 1.2 @ 40 ml/hr x 24 hrs goal as tolerated 2) If pt remains NPO >7 days consider PN support to meet at least 75% or estimated needs 3) Advance pt diet when medically feasible 4) Continue current plan of care Expected Outcomes/Goals: 1) Pt to receive nutrition support within 7 days of NPO status 2) Pt diet to advance 3) F/U in 2-3 days Plan discussed with: Patient, Other (MARTÍN Rdz) CJ FOY MD Jan 26, 2024 21:50
[2024-01-27] VITALS (7 sets, daily range): BP systolic 133–142; BP diastolic 80–91; PULSE 75–98; RESP 18–22; TEMP 97.5–98; O2SAT 81–98
[2024-01-27] MEDS: LORazepam 2MG/ML-1ML VIAL IV PRN (02:29)
[2024-01-27] MEDS: MORPHINE SULFATE INJ 2 MG/ml SYRG IV PRN (05:30)
[2024-01-27] MEDS ORDERED: DOXY100C79 PO (13:21)
[2024-01-27] MEDS ORDERED: MET50T PO (13:21)
[2024-01-27] MEDS ORDERED: AML5T PO (13:21)
--- NOTE | 2024-01-27 15:41 | DVHDS2 ---
Discharge Summary Date of Admission Jan 19, 2024 at 21:51 Date of Discharge: Jan 27, 2024 Admitting Diagnosis Acute hypoxic respiratory failure Labs/Diagnostic Data: Laboratory Results Test 01/26/24 03:46 01/25/24 03:03 01/24/24 19:35 01/24/24 11:35 White Blood Count 9.3 10^3/uL (4.4-10.8) Red Blood Count 4.06 10^6/uL (4.0-5.20) Hemoglobin 13.6 g/dL (12.2-16.2) Hematocrit 39.4 % (36.0-46.0) Mean Corpuscular Volume 97.0 fL (80.0-100.0) Mean Corpuscular Hemoglobin 33.5 pg (28.0-32.0) Mean Corpuscular Hemoglobin Concent 34.5 g/dL (32.0-36.0) Red Cell Distribution Width 13.6 % (11.8-14.3) Platelet Count 206 10^3/uL (140-450) Mean Platelet Volume 8.1 fL (6.9-10.8) Neutrophils (%) (Auto) 76.8 % (37.0-80.0) Lymphocytes (%) (Auto) 10.9 % (10.0-50.0) Monocytes (%) (Auto) 12.0 % (0.0-12.0) Eosinophils (%) (Auto) 0.1 % (0.0-7.0) Basophils (%) (Auto) 0.2 % (0.0-2.0) Neutrophils # (Auto) 7.1 10 ^3/uL (1.6-8.6) Lymphocytes # (Auto) 1.0 10 ^3/uL (0.4-5.4) Monocytes # (Auto) 1.1 10 ^3/uL (0-1.3) Eosinophils # (Auto) 0 10 ^3/uL (0-0.8) Basophils # (Auto) 0 10 ^3/uL (0-0.2) Nucleated Red Blood Cells 0.0 % Creatinine 0.86 mg/dL (0.550-1.02) Glomerular Filtration Rate Calc 77 mL/min (>90) Sodium Level 144 mmol/L (136-145) Potassium Level 3.8 mmol/L (3.5-5.1) Chloride Level 111 mmol/L (98-107) Carbon Dioxide Level 23 mmol/L (20-31) Anion Gap 10 (5-15) Blood Urea Nitrogen 21 mg/dL (9-23) BUN/Creatinine Ratio 23.9 (10.0-20.0) Serum Glucose 105 mg/dL (74-106) Calcium Level 10.3 mg/dL (8.7-10.4) Magnesium Level 2.4 mg/dL (1.6-2.6) Vancomycin Level Trough 16.1 ug/mL (5-10) Blood Gas Specimen Type Arterial Blood Gas Sample Site Arterial line Blood Gas Patient Temperature 37.0 Arterial Blood Date Drawn [id number] Arterial Blood pH 7.430 (7.350-7.450) Arterial Blood Partial Pressure CO2 30.8 mmHg (32.0-45.0) Arterial Blood Partial Pressure O2 106.5 mmHg (83.0-108.0) Arterial Blood HCO3 20.0 mmol/L (21.0-28.0) Arterial Blood Oxygen Saturation 97.9 % (94.0-98.0) Arterial Blood Base Excess -3.2 mmol/L (-2.0-3.0) Arterial Blood Oxyhemoglobin 97.6 % (94.0-98.0) Arterial Blood Carboxyhemoglobin 0.0 % (0.5-1.5) Arterial Blood Methemoglobin 0.3 % (0.0-1.5) Elijah Test N/a Blood Gas Total Hemoglobin 14.30 g/dL (12.0-16.0) Blood Gas Modality Vent - cpap FiO2 % 30.0 Blood Gas Spontaneous Tidal Volume 670 Blood Gas Pressure Support 8 Blood Gas PEEP or CPAP 5.0 Test 01/24/24 06:49 01/23/24 11:00 01/22/24 13:00 01/22/24 03:00 Blood Gas Set Respiration Rate 16.0 Blood Gas Tidal Volume 450.0 Specimen Drawn By Blood Gas Spontaneous Rate 25 Blood Gas Inspiratory Pressure 16.0 Bl Gas Inspiratory/Expiratory Ratio 1:1.7 Phosphorus Level 5.3 mg/dL (2.4-5.1) Test 01/20/24 02:26 01/19/24 20:54 01/19/24 18:15 01/19/24 17:54 Total Bilirubin 0.9 mg/dL (0.2-1.0) Aspartate Amino Transferase (AST) 11 U/L (13-40) Alanine Aminotransferase (ALT) 14 U/L (7-40) Alkaline Phosphatase 81 U/L (46-116) Total Protein 7.1 g/dL (5.7-8.2) Albumin 4.4 g/dL (3.2-4.8) Troponin I High Sensitivity 15 ng/L (</=34) Urine Color Colorless (Yellow) Urine Clarity Clear (Clear) Urine pH 6.5 (5.0-9.0) Urine Specific [place] 1.031 (1.001-1.035) Urine Protein Negative (Negative) Urine Ketones Negative (Negative) Urine Blood Negative /uL (Negative) Urine Nitrite Negative (Negative) Urine Bilirubin Negative (Negative) Urine Urobilinogen Normal mg/dL (Negative) Urine Leukocyte Esterase Negative /uL (Negative) Urine RBC 1 /hpf (0 - 4) Urine WBC <1 /hpf (0 - 5) Urine Squamous Epithelial Cells Few /hpf (<5) Urine Bacteria None seen /hpf (None Seen) Urine Glucose Normal mg/dL (Normal) Urine Opiates Screen Neg (NEGATIVE) Urine Fentanyl Screen Neg (NEGATIVE) Urine Barbiturates Screen Neg (NEGATIVE) Urine Phencyclidine Screen Neg (NEGATIVE) Urine Amphetamines Screen Neg (NEGATIVE) Urine Benzodiazepines Screen Neg (NEGATIVE) Urine Cocaine Screen Neg (NEGATIVE) Urine Cannabinoids Screen Neg (NEGATIVE) Lactic Acid Level 1.2 mmol/L (0.4-2.0) B-Type Natriuretic Peptide 25.66 pg/mL (0-100) Other Laboratory Tests 01/26/24 03:46 01/25/24 03:03 Brief Hx & Hospital Course: History of Present Illness 58-year-old female presents for evaluation of altered mental status. Patient was found unresponsive by family members. Patient was transferred to the emergency department and intubated on arrival. Patient's right lung was noted to be collapsed up with possible mucus plug. Bedside bronchoscopy was performed with positive reinflation of the right lung. Patient is currently sedated and intubated. No further history could be obtained at the moment. Course of hospitalization: Patient was given bronchoscopy after being intubated while in the emergency room. Patient had improvement with right lung expansion. Patient had positive sputum culture with Staphylococcus aureus. Patient was started on vancomycin. Patient was subsequently weaned off of the ventilator and is currently on room air. The patient denies having any dyspnea, and has been ambulating without difficulty. Patient had neurology consult for questionable seizure activity. Patient had MRI of the brain which was negative for any acute pathology. EEG was also negative. Patient is requesting to be discharged home. She will be continued on antibiotic therapy with doxycycline 100 mg p.o. twice a day for seven days. She was instructed to follow up with her PCP as well as her psychiatrist within 1-2 weeks. The patient's daughter who was bedside and we will assist patient with discharge education. Physical exam General: Alert and Oriented x3. No acute distress. Well-nourished. Eyes: EOMI. Anicteric. HENT: Moist mucous membranes. Lungs: Clear to auscultation bilaterally. No accessory muscle use. Cardiovascular: Regular rate and rhythm. No murmur. No JVD. Abdomen: Soft, non-tender and non-distended. No palpable masses. Extremities: No edema. Non-tender. Skin: No rashes or lesions. Warm. Neurologic: No focal neurological deficits. CN II-XII grossly intact, but not individually tested. Psychiatric: Cooperative. Appropriate mood and affect. Total time spent with patient discussing and formulating plan of care: 35 minutes. This medical document was created using an electronic medical record system with [employer] dictation system. Although this document has been carefully reviewed, there may still be some phonetic and typographical errors. These areas are purely typographical due to imperfections of the software programs, and do not reflect any compromise in the patient's medical care. Consults/Reason for consult Pulmonology: Acute respiratory failure Operations or Procedures 01/19/24: Bronchoscopy Condition at Discharge: Fair Final Diagnosis/Problems List Acute Hypoxic Respiratory Failrue Secondary Diagnosis: -acute hypoxic respiratory failure on mechanical ventilation -probable aspiration pneumonia -breakthrough seizure activity -history of anxiety disorder, probable other underlying psychosis, not otherwise specified -obesity -leukocytosis, probable sepsis -right upper bronchus occlusion secondary to mucus plugging -accelerated hypertension -acute kidney injury probable vasomotor nephropathy Discharge Disposition: Home Discharge Instruct/Medications Diet: Regular Activity: Light activity Follow Up/Referral: Follow up with psychiatrist in one week Follow up with PCP in 1-2 weeks Medications: Refer to medication reconciliation form 36 Discharge Statement: "Patient was advised to return to the ER or call 911 if any headaches, dizziness, shortness of breath, chest pain, abdominal pain, bleeding, fevers, or worsening of medical condition. Patient was counseled about treatment plan, medications, possible side effects, patientverbalized understanding. All questions were answered to the best of my ability. This discharge took greater then 30 minutes in planning, reviewing documentation, counseling the patient, and discussing with other team members." ASSESSMENT ASSESSMENT Assessment Acute Hypoxic Respiratory Failrue Date of Service: Jan 27, 2024 Billing Provider: PIA HEATH NP Common Visit Codes: 88220-AIE/OBS DISCH DAY >30min PIA HEATH NP Jan 27, 2024 15:41
--- NOTE | 2024-01-27 17:50 | DVHPN2 ---
Progress Note - Dictate Date Seen: Jan 27, 2024 Medical Necessity Reason Pt with a Central, PICC or Fol: Yes The following are medically ne: Xavier Catheter Reason for xavier catheter: Strict I&O Subjective Patient seen and examined at bedside. On room air. Overnight events reviewed. vital signs Vital Sign Date Time Temp Pulse Resp B/P (MAP) Pulse Ox O2 Delivery O2 Flow Rate FiO2 01/27/24 14:07 97.8 81 18 81 01/27/24 13:32 Room Air 0.0 01/27/24 13:32 21 01/27/24 13:00 135/80 (98) Total Intake and Output 01/26/24 01/26/24 01/27/24 15:00 23:00 07:00 Intake Total 200 ml 200 ml 480 ml Output Total 250 ml 200 ml 300 ml Balance -50 ml 0 ml 180 ml objective Gen.: Patient lying in bed in no apparent distress. Breathing on room air. Head: Normocephalic, atraumatic. Eyes: EOMI/PERRLA. Ears: Normal hearing. Normal anatomy. Neck/trachea: Trachea midline, supple. Nose: Normal external anatomy. Mouth: Moist mucous membranes. Chest: Decreased air entry bilaterally. No wheezing or rhonchi. Cardiovascular: Positive S1, positive S2. Regular rate and rhythm. Abdomen: Positive bowel sounds in all 4 quadrants. Soft, non-tender, non- distended. : Deferred. Rectal: Deferred. Skin: Warm, dry. Intact. Extremities: 2+ radial pulses bilaterally. No lower extremity edema. Neuro: Awake, alert, oriented x3. No gross motor or sensory deficits. Cranial nerves II through XII intact. Gait not assessed. laboratory and microbiology Laboratory Tests 01/26/24 03:46 01/25/24 03:03 Test 01/25/24 03:03 Range/Units Serum Glucose 105 74-106 mg/dL Assessment/Plan Impression: Acute hypoxic respiratory failure On mechanical ventilator Aspiration pneumonia Acute metabolic encephalopathy Mucus plugging causing collapse of the right lung Atelectasis Obesity, BMI 31.1 Hypokalemia Events: Currently on room air No respiratory distress. No new respiratory complaints. Patient is stable from the pulmonary standpoint for discharge. Complete abx course Cont BD prn Keppra for seizure prophylaxis Anxiolytic Labs and imaging reviewed. Rest of plan as noted below. Plan: On room air S/p bronchoscopy with Bronchoalveolar lavage. RML BAL cultures grew Staph aureus Blood cultures show no growth Monitor renal function due to Acute kidney injury. Monitor electrolytes. Supplement as necessary. Nutritional support. Accucheks, ISS. GI/DVT prophylaxis. Prognosis: Poor given multiple comorbidities. Rest of plan per hospitalist and other consultants. Thank you KELL Canela for allowing me to participate in this patient's care. Please do not hesitate to contact me if you have any questions or concerns. This medical document was created using an electronic medical record system with [employer] dictation system. Although this document has been carefully reviewed, there may still be some phonetic and typographical errors. These areas are purely typographical due to imperfections of the software programs, and do not reflect any compromise in the patient's medical care. Dietary Evaluation Review Comments: 1) If GI is accessible consider Jevity 1.2 @ 40 ml/hr x 24 hrs goal as tolerated 2) If pt remains NPO >7 days consider PN support to meet at least 75% or estimated needs 3) Advance pt diet when medically feasible 4) Continue current plan of care Expected Outcomes/Goals: 1) Pt to receive nutrition support within 7 days of NPO status 2) Pt diet to advance 3) F/U in 2-3 days Plan discussed with: Patient, Other (RN Darinel) CJ FOY MD Jan 27, 2024 17:50
--- NOTE | 2024-01-27 22:21 | DVHPN2 ---
Progress Note - Dictate Date Seen: Jan 27, 2024 Medical Necessity Reason Pt with a Central, PICC or Fol: Yes The following are medically ne: Xavier Catheter Reason for xavier catheter: Strict I&O Subjective Ms. Samaniego is a 58 years old right-handed female with a history of hypertension, anxiety, the patient was admitted on 01/17/2024 to the [facility] with a chief company of altered mental state, seizure activity. I have seen and examined the patient early this morning, her daughter was with her, she is stronger, awake, but is only oriented to person, and place, socially appropriate She to follow up with me TERRENCE of discharge, so I can refer her to [facility] UDS, 01/19/2024: Negative Urinalysis, 01/19/2024: Unremarkable ABG, 01/19/2024: Respiratory alkalosis WBC/HB/PLT/MCV, 01/20/2024: 16.3/16.2/219/96.6 CMP, 01/20/2024: Normal EEG 01/21/2024: a remarkably abnormal EEG X-ray, left elbow, 01/22/24: There is no evidence of acute fracture or dislocation. Soft tissues are unremarkable. Chest ray, 01/19/24: Endotracheal tube projects 5.7 cm superior to the toño. Enteric tube projects terminating within the stomach. Opacification of the right lower lung zone concerning for atelectasis with superimposed infection not excluded. There is mild rightward deviation of the mediastinum. CXR, 01/21/24: 1. Pulmonary congestion. 2. Stable position of the support lines and tubes CT head, 01/19/2024: No evidence of acute intracranial abnormality. Nonspecific partially empty sella CTA head, neck, 01/19/2024: 1. No large vessel occlusion or high-grade stenosis in the arteries of the head and neck. 2. 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 3. Large amount of fluid in the oropharynx and nasopharynx. Fluid is seen in the dependent portion of trachea. Pulmonary opacities in the right upper lobe and asymmetric reduction in right lung volume. Aspiration pneumonia can not be ruled out. Recommend suctioning of the fluid in oropharynx and trachea MRI head, 01/21/2024: No evidence of acute infarction, intracranial hemorrhage, mass lesion or hydrocephalus. Old lacunar infarct in the right clint. Empty sella. vital signs Vital Sign Date Time Temp Pulse Resp B/P (MAP) Pulse Ox O2 Delivery O2 Flow Rate FiO2 01/27/24 14:07 97.8 81 18 81 01/27/24 13:32 Room Air 0.0 01/27/24 13:32 21 01/27/24 13:00 135/80 (98) Total Intake and Output 01/26/24 01/26/24 01/27/24 15:00 23:00 07:00 Intake Total 200 ml 200 ml 480 ml Output Total 250 ml 200 ml 300 ml Balance -50 ml 0 ml 180 ml objective The patient is well-nourished and well-developed with no distress. MENTAL STATUS: Possibly responsive to light painful stimuli CRANIAL NERVES: Pupils are equal round and reactive to light briskly, normal external eye movement, normal sensation and motor examination in the lateral trigeminal nerve distribution, no facial weakness. SENSATION: Okay to pinprick and light touch MOTOR: Normal tone in the upper and lower extremity. Normal muscle bulk. No fasciculations. Moves the arms and the legs REFLEXES: Deep tendon reflexes are symmetrical. No pathological reflexes. CEREBELLAR/COORDINATION: Deferred GAIT/STATION: deferred. laboratory and microbiology Laboratory Tests 01/26/24 03:46 01/25/24 03:03 Test 01/25/24 03:03 Range/Units Serum Glucose 105 74-106 mg/dL Problem List Grand mal seizure Status epileptics Metabolic encephalopathy Respiratory failure Brain aneurysm Fever/sepsis Left elbow pain Assessment/Plan Monitoring Supportive treatment Telemetry IV antibiotics Ativan for seizure breakthrough DVT prophylaxis Keppra 500mg bid More recommendation per clinical course This medical document was created using an electronic medical record system with [employer] dictation system. Although this document has been carefully reviewed, there may still be some phonetic and typographical errors. These areas are purely typographical due to imperfections of the software programs, and do not reflect any compromise in the patient's medical car Prognosis poor Dietary Evaluation Review Comments: 1) If GI is accessible consider Jevity 1.2 @ 40 ml/hr x 24 hrs goal as tolerated 2) If pt remains NPO >7 days consider PN support to meet at least 75% or estimated needs 3) Advance pt diet when medically feasible 4) Continue current plan of care Expected Outcomes/Goals: 1) Pt to receive nutrition support within 7 days of NPO status 2) Pt diet to advance 3) F/U in 2-3 days Plan discussed with: Daughter, Other RAPHAEL LR MD Jan 27, 2024 22:21
== END 2024-01-27 15:00 | disposition home or self-care (01) | DRG 871 ==
LOC: ER 16:29 → EDBD 16:29 → CENTRAL 21:51 → OVERFLOW 21:52 → ICU WEST 01-20 19:10 → TELE-WESTW 01-26 11:08
PROVIDERS: ADMIT Internal Medicine; ATTEND Nurse Practitioner Acute Care
PROC: 0B9D8ZX Drainage of Right Middle Lung Lobe, Via Natural or Artificial Opening Endoscopic, Diagnostic (ICD-10-PCS; principal; 2024-01-19)
PROC: 04HY32Z Insertion of Monitoring Device into Lower Artery, Percutaneous Approach (ICD-10-PCS; 2024-01-19)
PROC: 0BH17EZ Insertion of Endotracheal Airway into Trachea, Via Natural or Artificial Opening (ICD-10-PCS; 2024-01-19)
PROC: 5A1945Z Respiratory Ventilation, 24-96 Consecutive Hours (ICD-10-PCS; 2024-01-19)
PROC: 0BJ08ZZ Inspection of Tracheobronchial Tree, Via Natural or Artificial Opening Endoscopic (ICD-10-PCS; 2024-01-19)
PROC: 05HD33Z Insertion of Infusion Device into Right Cephalic Vein, Percutaneous Approach (ICD-10-PCS; 2024-01-25)
PROC: B54MZZA Ultrasonography of Right Upper Extremity Veins, Guidance (ICD-10-PCS; 2024-01-25)
DX: A41.9 Sepsis, unspecified organism (principal); G93.41 Metabolic encephalopathy; J69.0 Pneumonitis due to inhalation of food and vomit; J96.01 Acute respiratory failure with hypoxia; N17.0 Acute kidney failure with tubular necrosis; J18.9 Pneumonia, unspecified organism; J98.19 Other pulmonary collapse; E87.3 Alkalosis; E87.6 Hypokalemia; I10 Essential (primary) hypertension; G40.401 Other generalized epilepsy and epileptic syndromes, not intractable, with status epilepticus; F17.210 Nicotine dependence, cigarettes, uncomplicated; E66.9 Obesity, unspecified; I67.1 Cerebral aneurysm, nonruptured; Z87.01 Personal history of pneumonia (recurrent); Z68.31 Body mass index [BMI] 31.0-31.9, adult; Z86.73 Personal history of transient ischemic attack (TIA), and cerebral infarction without residual deficits; Z79.899 Other long term (current) drug therapy
CPT/HCPCS: 31500; 36415; 36556; 36600; 70450; 70496; 70551; 71045; 71260; 73080; 74177; 80048; 80053; 80202; 80307; 81001; 82565; 82805; 83605; 83735; 83880; 84100; 84484; 85025; 87040; 87070; 87077; 87081; 87186; 87205; 92610; 93005; 94002; 94003; 94640; 95819; 97110; 97116; 97163; 97530; 99291; 99292; G0378; J0692; J1100; J2470; J2704; J3480; J3490; J7060; Q9965

== ENCOUNTER 2024-06-09 03:30 | Inpatient (IN) | payer OTHER, MEDICAID ==
[~2024-06-09] VITALS: Ht 162.6 cm; Wt 86.1 kg
[~2024-06-09 03:30] MED LIST changes: +AML5T PO; -BACL10TA; +DOXY100C79 PO; +MET50T PO; -TRIA37.586
[2024-06-09 04:16] LABS: Basophils # (auto) 0.1 10 ^3/uL (0-0.2); Eosinophils # (auto) 0.1 10 ^3/uL (0-0.8); Eosinophils % (auto) 1.2 % (0.0-7.0); Hematocrit 44.4 % (36.0-46.0); Hemoglobin 15.3 g/dL (12.2-16.2); Lymphocytes # (auto) 2.5 10 ^3/uL (0.4-5.4); Lymphocytes % (auto) 32.2 % (10.0-50.0); Mean Corpuscular Hemoglobin 32.7 pg (28.0-32.0); Mean Corpuscular Hgb Conc. 34.5 g/dL (32.0-36.0); Mean Corpuscular Volume 94.9 fL (80.0-100.0); Monocytes # (auto) 0.6 10 ^3/uL (0-1.3); Monocytes % (auto) 7.9 % (0.0-12.0); Neutrophils # (auto) 4.6 10 ^3/uL (1.6-8.6); Neutrophils % (auto) 57.7 % (37.0-80.0); Platelet Count (auto) 216 10^3/uL (140-450); Red Blood Cells 4.68 10^6/uL (4.0-5.20); Red Cell Distribution Width 13.2 % (11.8-14.3); White Blood Cell 7.9 10^3/uL (4.4-10.8)
[2024-06-09 04:24] LABS: Sodium 141 mmol/L (136-145)
[2024-06-09 04:25] LABS: Anion Gap 10 (5-15); Carbon Dioxide 21 mmol/L (20-31)
[2024-06-09 04:29] VITALS: PULSE 55; RESP 15; O2SAT 97
[2024-06-09 04:30] LABS: BUN/Creatinine Ratio 12.4 (10.0-20.0); Blood Urea Nitrogen 11 mg/dL (9-23); Glucose 96 mg/dL (74-106)
[2024-06-09 04:31] LABS: INR 1.05 (0.9-1.15); Partial Thromboplastin Time 25.7 SEC (24.5-34.5); Prothrombin Time 11.1 sec (9.3-11.8)
[2024-06-09 04:38] LABS: Calcium 10.5 mg/dL (8.7-10.4); Chloride 110 mmol/L (98-107); Potassium 3.4 mmol/L (3.5-5.1)
--- NOTE | 2024-06-09 04:41 | ED.PDOC ---
GI ASSESSMENT HPI Comments 58 year old female brought in by EMS presents to the ED with a chief complaint of rectal bleeding onset 2 days. PMHx hemorrhoids, HTN. Patient has been experiencing diarrhea, bright red, as well as abdominal pain, generalized weakness, nausea, vomiting, loss of appetite, rectal pain for the past 2 days. Patient denies chest pain, shortness of breath, headache, dysuria, hematuria. No other symptoms or modifying factors present at this time. Chief Complaint: GI Bleed Time Seen by MD: 04:26 Primary Care Provider: GRAY Cole Notes: Medications, Allergies Allergies: Coded Allergies: NO KNOWN ALLERGIES (Unverified , 11/04/12) Home Meds Active Scripts Doxycycline (Monohydrate) (Doxycycline) 100 Mg Cap, 100 MG PO BID for 7 Days, #14 CAP Prov:PIA HEATH POLYMER TESTER 01/27/24 Metoprolol Tartrate (LOPRESSOR TABLET) 50 Mg Tb, 75 MG PO BID for 30 Days, #90 TAB 3 Refills Prov:PIA HEATH POLYMER TESTER 01/27/24 Amlodipine Besylate (NORVASC TABLET) 5 Mg Tb, 10 MG PO DAILY for 30 Days, #60 TAB 2 Refills Prov:PIA HEATH POLYMER TESTER 01/27/24 Reported Medications Buspirone Hcl (Buspirone Hcl) 10 Mg Tab, #60 01/22/15 [Estravan] No Conflict Check 11/04/12 Information Source: Patient, Emergency Med Personnel Mode of Arrival: EMS Timing: Days Duration: Since onset Prehospital treatment: None Quality: Sharp Stool: Hemorrhoids, Blood Streaked, Watery Severity: Moderate Recent: None Recent Hx of: None Pain Location: Diffuse Modifying Factors: Nothing Associated sign and symptoms: Nausea, Vomiting, Abdominal Pain, Blood in Stool Past Medical History PAST MEDICAL HISTORY: Anxiety, HTN Past Medical History (Other): hemorrhoids Surgical History: Denies all surgeries CARD GRADER History: No Pertinent CARD GRADER History Family History Family History: Unknown Social History Smoker: Cigarettes, Less Than 1 Pack/Day Alcohol: Occasionally Drugs: Denies Drug Use Lives In: Home Constitutional: reports: weakness; denies: chills, diaphoresis, fatigue, fever, malaise, sweats, others EENTM: denies: blurred vision, double vision, ear bleeding, ear discharge, ear drainage, ear pain, ear ringing, eye pain, eye redness, hearing loss, mouth pain, mouth swelling, nasal discharge, nose bleeding, nose congestion, nose pain, photophobia, tearing, throat pain, throat swelling, voice changes, others Respiratory: denies: cough, hemoptysis, orthopnea, SOB at rest, shortness of breath, SOB with excertion, stridor, wheezing, others Cardiovascular: denies: chest pain, dizzy spells, diaphoresis, Dyspnea on exertion, edema, irregular heart beat, left arm pain, lightheadedness, palpitations, PND, syncope, others Gastrointestinal: reports: abdominal pain, diarrhea, nausea, poor appetite, rectal bleeding, rectal pain, vomiting; denies: abdomen distended, blood streaked bowels, constipated, dysphagia, difficulty swallowing, hematemesis, melena, poor fluid intake, others Genitourinary: denies: abnormal vagina bleeding, burning, dyspareunia, dysuria, flank pain, frequency, hematuria, incontinence, pain, , vagina discharge, urgency, others Neurological: reports: weakness; denies: dizziness, fainting, headache, left sided numbness, left sided weakness, numbness, paresthesia, pre-existing deficit, right sided numbness, right sided weakness, seizure, speech problems, tingling, tremors, others Musculoskeletal: denies: back pain, gout, joint pain, joint swelling, muscle pain, muscle stiffness, neck pain, others Integumetry: denies: bruises, change in color, change in hair/nails, dryness, laceration, lesions, lumps, rash, wounds, others Allergic/Immunocompromised: denies: Difficulty Healing, Frequent Infections, Hives, Itching, others Hematologic/Lymphatic: denies: anemia, blood clots, easy bleeding, easy bruising, swollen glands, others Endocrine: denies: excessive hunger, excessive sweating, excessive thirst, excessive urination, flushing, intolerance to cold, intolerance to heat, unexpl ained weight gain, unexplained weight loss, others Psychiatric: denies: anxiety, bipolar disorder, depression, hopeless, panic disorder, schizophrenia, sleepless, suicidal, others All Other Systems: Reviewed and Negative Physical Exam General Appearance: No Apparent Distress, Normal HEENT: Normal ENT Inspection, Pharynx Normal, TMs Normal Neck: Full Range of Motion, Non-Tender, Normal, Normal Inspection Respiratory: Chest Non-Tender, Lungs Clear, No Accessory Muscle Use, No Respiratory Distress, Normal Breath Sounds Cardiovascular: No Edema, No JVD, No Murmur, No Gallop, Normal Peripheral Pulses, Regular Rate/Rhythm Breast Exam: Deferred Gastrointestinal: No Organomegaly, Non Tender, No Pulsatile Mass, Normal Bowel Sounds, Soft Genitalia: Deferred Pelvic: Deferred Rectal: Deferred Extremities: No calf tenderness, Normal capillary refill, Normal inspection, Normal range of motion, Non-tender, No pedal edema Musculoskeletal : Apperance: Normal Neurologic: Alert, dog control officer II-XII nml as Tested, No Motor Deficits, Normal Affect, Normal Mood, No Sensory Deficits Cerebellar Function: Normal Reflexes: Normal Skin: Dry, Normal Color, Warm Lymphatic: No Adenopathy Was a procedure done? Was a procedure done?: No GI differential Dx Differential Diagnosis: Diverticular disease, Gastroenteritis, GI hemorrhage, Dehydration, Electrolyte Imbalance, Food Poisoning X-Ray, Labs, Meds, VS Vital Signs Date Time Temp Pulse Resp B/P (MAP) Pulse Ox O2 Delivery O2 Flow Rate FiO2 06/09/24 04:29 55 15 97 Room Air* 0 21 06/09/24 04:26 97.4 55 15 134/68 (90) 97 97.4 06/09/24 03:37 53 06/09/24 03:37 97.8 57 18 171/92 (118) 100 97.8 Lab Test 06/09/24 03:50 Range/Units White Blood Count 7.9 4.4-10.8 10^3/uL Red Blood Count 4.68 4.0-5.20 10^6/uL Hemoglobin 15.3 12.2-16.2 g/dL Hematocrit 44.4 36.0-46.0 % Mean Corpuscular Volume 94.9 80.0-100.0 fL Mean Corpuscular Hemoglobin 32.7 H 28.0-32.0 pg Mean Corpuscular Hemoglobin Concent 34.5 32.0-36.0 g/dL Red Cell Distribution Width 13.2 11.8-14.3 % Platelet Count 216 140-450 10^3/uL Mean Platelet Volume 8.0 6.9-10.8 fL Neutrophils (%) (Auto) 57.7 37.0-80.0 % Lymphocytes (%) (Auto) 32.2 10.0-50.0 % Monocytes (%) (Auto) 7.9 0.0-12.0 % Eosinophils (%) (Auto) 1.2 0.0-7.0 % Basophils (%) (Auto) 1.0 0.0-2.0 % Neutrophils # (Auto) 4.6 1.6-8.6 10 ^3/uL Lymphocytes # (Auto) 2.5 0.4-5.4 10 ^3/uL Monocytes # (Auto) 0.6 0-1.3 10 ^3/uL Eosinophils # (Auto) 0.1 0-0.8 10 ^3/uL Basophils # (Auto) 0.1 0-0.2 10 ^3/uL Nucleated Red Blood Cells 0.0 % Prothrombin Time 11.1 9.3-11.8 sec Prothrombin Time INR 1.05 0.9-1.15 Activated Partial Thromboplast Time 25.7 24.5-34.5 SEC Sodium Level 141 136-145 mmol/L Potassium Level 3.4 L 3.5-5.1 mmol/L Chloride Level 110 H 98-107 mmol/L Carbon Dioxide Level 21 20-31 mmol/L Anion Gap 10 5-15 Blood Urea Nitrogen 11 9-23 mg/dL Creatinine 0.89 0.550-1.02 mg/dL Glomerular Filtration Rate Calc 74 >90 mL/min BUN/Creatinine Ratio 12.4 10.0-20.0 Serum Glucose 96 74-106 mg/dL Calcium Level 10.5 H 8.7-10.4 mg/dL Time of 1ST Reevaluation: 04:56 Reevaluation 1ST: Unchanged Patient Education/Counseling: Diagnosis, Treatment, Prognosis Family Education/Counseling: No Family Present Departure 1 Departure Time of Disposition: 05:38 (Patient presented with abdominal pain that was concerning for possible appendicits, gastritis, cholecystitis, colitis, gastroenteritis, sbo, or orther possible surgical emergency. Data: 1. I ordered and reviewed the result of at least 3 labs including a CBC, BMP, and Urinalysis. 2. I independently interpreted the following tests: CT Abdoment and Pelvis is concerning for benign abdomen .Risk:This patient has a high risk of morbidity due to further diagnostic testing or treatment and may suffer from an acute abdominal process disorder. Workup reveals GI bleed and patient should be admitted for further workup. and possible expert consultation. ) Impression: Primary Impression: Bright red blood per rectum Additional Impression: Abdominal pain Qualified Codes: R10.84 - Generalized abdominal pain Disposition: 09 ADMITTED INPATIENT Admit to: Med Surg Condition: Serious Critical Care Note Critical Care Time?: Yes Critical care comment: GI bleed Authorized and Performed by: Hansel Carrero MD Total critical care time: Approximately 36 minutes Due to a high probability of clinically significant, life threatening deterioration, the patient required my highest level of preparedness to intervene emergently and I personally spent this critical care time directly and personally managing the patient. This critical care time included obtaining a history; examining the patient; pulse oximetry; ordering and review of studies; arranging urgent treatment with development of a management plan; evaluation of patient's response to treatment; frequent reassessment; and, discussions with other providers. This critical care time was performed to assess and manage the high probability of imminent, life-threatening deterioration that could result in multi-organ failure. It was exclusive of separately billable procedures and treating other patients and teaching time. Please see my other sections and the rest of the note for further information on patient assessment and treatment. Stability Stability form required: No I personally scribed for HANSEL CARRERO MD ([email or web address]) on 06/09/24 at 04:41. Electronically submitted by Landy Santa ([email or web address]). HANSEL CARRERO MD Jun 09, 2024 04:41
--- NOTE | 2024-06-09 06:09 | DVH ---
Exam: CT CT AB PEL WITH IV CON ONLY History: abdominal pain, gi gleed Comparison Study: None available at time of dictation. Technique: Multidetector spiral CT of the abdomen and pelvis was performed from lung bases to pubic s ymphysis with intravenous intravenous contrast. Coronal and sagittal multiplanar reformats were obtai reza from the axial data set by the technologist. Radiation Dose : 1. Abdomen/Pelvis: CTDIvol 21.8 mGy, DLP 1096.3 mGy*cm. Findings: Evaluation of vasculature and solid organs is limited due to lack of intravenous contrast use. Lung Bases: Lung bases are clear. Visualized portions of the heart and pericardium are unremarkable. Liver: The liver is normal in size. No focal lesions. Normal enhancement. Gallbladder and Biliary Tree: The gallbladder is contracted. No intrahepatic or extrahepatic biliary ductal dilatation. Spleen: Unremarkable Pancreas: The pancreas is unremarkable. Adrenal Glands: Unremarkable Kidneys: Symmetric enhancement of the kidneys. Kidneys are unremarkable without calculi or hydroneph rosis. 8 mm right cortical renal cyst noted. GI tract: The stomach is grossly normal in appearance. Fluid-filled small bowel loops measuring up to 2.6 cm. Liquid stool in the colon and rectum. The appendix is visualized and is normal. Peritoneum/mesentery/retroperitoneum. No evidence of free intraperitoneal air. No ascites. No evidenc e of suspicious lymphadenopathy. Abdominal Wall: Unremarkable. Vasculature: The visualized abdominal aorta is normal in size and caliber. Normal enhancement. There are atherosclerotic calcifications in the aorta. Urinary Bladder: Grossly unremarkable for degree of distention. Pelvic Organs: Unremarkable Musculoskeletal: No aggressive focal bony lesions, acute fractures or dislocation. IMPRESSION: 1. Fluid-filled small bowel loops without a definite transition, which may reflect enteritis of infec tious or inflammatory etiology. Liquid stool in the colon suggesting diarrhea.
--- NOTE | 2024-06-09 06:41 | ECG ---
[facility] Test Date: 2024-06-09 Test Time: 03:37:34 Pat Name: ZENON MCGUIRE Department: ED Room: 0238 Gender: F Maintenance Of Way Clerk: KRISTIE : 1965 Requested By: HANSEL CARRERO Order Number: [id number] Reading MD: Grey Raymond Measurements Intervals [place] Rate: 53 P: 53 TN: 167 QRS: 55 QRSD: 102 T: 56 QT: 433 QTc: 407 Interpretive Statements Sinus rhythm Abnormal R-wave progression, early transition Electronically Signed On 06-09-2024 22:44:23 PDT by Grey Raymond Please click the below link to view image of tracing.
[2024-06-09] MEDS ORDERED: ONDANSETRON HCL 4 MG/2 ML VIAL IV PRN (07:30)
[2024-06-09] MEDS ORDERED: ACETAMINOPHEN 325 MG TAB PO PRN (07:30)
[2024-06-09] MEDS ORDERED: HYDR-4072 PO (07:48)
[2024-06-09] MEDS ORDERED: MORP1TAB12 PO (07:48)
[2024-06-09] MEDS ORDERED: LISI40TA16 PO (07:49)
[2024-06-09 08:00] VITALS: PULSE 57; RESP 16; O2SAT 98
--- NOTE | 2024-06-09 08:22 | DVHHP2 ---
History of Present Illness Reason for Visit: Bloody stool History of Present Illness Cara Samaniego is a 58-year-old female with past medical history of hypertension and chronic pain, who came to the hospital due to diarrhea and bloody stool. Patient states she began having diarrhea with associated abdominal pain about 2 days ago. The diarrhea and pain worsened over the coarse of the 2 days and she began noticing what she thought was blood so she came to the hospital. Cardiovascular: HTN Musculoskeletal: Chronic low back pain Past Surgical History: None Family History: None Smoke: <1 pack per day ALCOHOL: rare Drugs: None Lives: with Family Domestic Violence: Neg Review of Systems Constitutional: No: Fever, Chills, Sweats, Weakness, Malaise, Other Eyes: No: Pain, Vision change, Conjunctivae inflammation, Eyelid inflammation, Other, Redness ENT: No: Ear pain, Ear discharge, Nose pain, Nose discharge, Nose congestion, Mouth pain, Mouth swelling, Throat pain, Throat swelling, Other Respiratory: No: Cough, Dry, Shortness of breath, SOB with excertion, Wheezing, Hemoptysis, Pleuritic Pain, Sputum, Wheezing, Other Cardiovascular: No: Chest Pain, Palpitations, Orthopnea, Paroxysmal Noc. Dyspnea, Edema, Lt Headedness, Other Gastrointestinal: Nausea, Abdominal Pain, Diarrhea; No: Vomiting, Constipation, Melena, Hematochezia, Other Genitourinary: No Dysuria, No Frequency, No Incontinence, No Hematuria, No Retention, No Other Musculoskeletal: No: other, neck pain, shoulder pain, arm pain, back pain, hand pain, leg pain, foot pain Skin: No: Rash, Lesions, Jaundice, Bruising, Other Neurological: No: Weakness, Numbness, Incoordination, Change in speech, Confusion, Seizures, Other Allergies: Coded Allergies: NO KNOWN ALLERGIES (Unverified , 11/04/12) Medications Current Medications Medications Dose Ordered Sig/Zenon Route Start Time Stop Time Status Last Admin Dose Admin Sodium Chloride 1,000 ml @ 75 mls/hr [id number] IV 06/09/24 07:30 UNV Ondansetron HCl 4 mg Q4HP PRN IV 06/09/24 07:30 UNV Acetaminophen 650 mg Q6HP PRN PO 06/09/24 07:30 UNV Exam Vital Signs Vital Signs Date Time Temp Pulse Resp B/P (MAP) Pulse Ox O2 Delivery O2 Flow Rate FiO2 06/09/24 04:29 55 15 97 Room Air* 0 21 06/09/24 04:26 97.4 134/68 (90) 97.4 General Appearance: Alert, Oriented X3, Cooperative, mild distress HEENT: Atraumatic, PERRLA Respiratory: Clear to auscultation, Normal air movement Cardiovascular: Normal S1, Normal S2, Other (SB) Abdominal: No hepatospenomegaly, Other (hyperactive bowel sounds, C/O tenderness on palpitation) Extremities: No clubbing, No cyanosis, No edema, Normal pulses, No tenderness/swelling Skin: No rashes, No breakdown, No significant lesion Neuro: Normal gait, Normal speech, Strength at 5/5 X4 ext, Normal tone Psych/Mental Status: Mental status NL, Mood NL Labs/Xrays Labs Test 06/09/24 03:50 Range/Units White Blood Count 7.9 4.4-10.8 10^3/uL Red Blood Count 4.68 4.0-5.20 10^6/uL Hemoglobin 15.3 12.2-16.2 g/dL Hematocrit 44.4 36.0-46.0 % Mean Corpuscular Volume 94.9 80.0-100.0 fL Mean Corpuscular Hemoglobin 32.7 H 28.0-32.0 pg Mean Corpuscular Hemoglobin Concent 34.5 32.0-36.0 g/dL Red Cell Distribution Width 13.2 11.8-14.3 % Platelet Count 216 140-450 10^3/uL Mean Platelet Volume 8.0 6.9-10.8 fL Neutrophils (%) (Auto) 57.7 37.0-80.0 % Lymphocytes (%) (Auto) 32.2 10.0-50.0 % Monocytes (%) (Auto) 7.9 0.0-12.0 % Eosinophils (%) (Auto) 1.2 0.0-7.0 % Basophils (%) (Auto) 1.0 0.0-2.0 % Neutrophils # (Auto) 4.6 1.6-8.6 10 ^3/uL Lymphocytes # (Auto) 2.5 0.4-5.4 10 ^3/uL Monocytes # (Auto) 0.6 0-1.3 10 ^3/uL Eosinophils # (Auto) 0.1 0-0.8 10 ^3/uL Basophils # (Auto) 0.1 0-0.2 10 ^3/uL Nucleated Red Blood Cells 0.0 % Prothrombin Time 11.1 9.3-11.8 sec Prothrombin Time INR 1.05 0.9-1.15 Activated Partial Thromboplast Time 25.7 24.5-34.5 SEC Sodium Level 141 136-145 mmol/L Potassium Level 3.4 L 3.5-5.1 mmol/L Chloride Level 110 H 98-107 mmol/L Carbon Dioxide Level 21 20-31 mmol/L Anion Gap 10 5-15 Blood Urea Nitrogen 11 9-23 mg/dL Creatinine 0.89 0.550-1.02 mg/dL Glomerular Filtration Rate Calc 74 >90 mL/min BUN/Creatinine Ratio 12.4 10.0-20.0 Serum Glucose 96 74-106 mg/dL Calcium Level 10.5 H 8.7-10.4 mg/dL Exam: CT CT AB PEL WITH IV CON ONLY Findings: Evaluation of vasculature and solid organs is limited due to lack of intravenous contrast use. Lung Bases: Lung bases are clear. Visualized portions of the heart and pericardium are unremarkable. Liver: The liver is normal in size. No focal lesions. Normal enhancement. Gallbladder and Biliary Tree: The gallbladder is contracted. No intrahepatic or extrahepatic biliary ductal dilatation. Spleen: Unremarkable Pancreas: The pancreas is unremarkable. Adrenal Glands: Unremarkable Kidneys: Symmetric enhancement of the kidneys. Kidneys are unremarkable without calculi or hydronephrosis. 8 mm right cortical renal cyst noted. GI tract: The stomach is grossly normal in appearance. Fluid-filled small bowel loops measuring up to 2.6 cm. Liquid stool in the colon and rectum. The appendix is visualized and is normal. Peritoneum/mesentery/retroperitoneum. No evidence of free intraperitoneal air. No ascites. No evidence of suspicious lymphadenopathy. Abdominal Wall: Unremarkable. Vasculature: The visualized abdominal aorta is normal in size and caliber. Normal enhancement. There are atherosclerotic calcifications in the aorta. Urinary Bladder: Grossly unremarkable for degree of distention. Pelvic Organs: Unremarkable Musculoskeletal: No aggressive focal bony lesions, acute fractures or dislocation. IMPRESSION: 1. Fluid-filled small bowel loops without a definite transition, which may reflect enteritis of infectious or inflammatory etiology. Liquid stool in the colon suggesting diarrhea. Assessment/Plan Assessment/Plan Assessment: Enteritis, Possible GI bleed, Hypertension, Chronic pain, Plan: Admit to Med-Surg, GI consult, Send stool for WBC, bacteria, C-diff, occult, blood, IV hydration, IV antibiotics, Home medications reconciled, Plan discussed with: Patient My Orders Orders - CATINA WEEKS Procedure Category Date Status Time Admit ADMIT 06/09/24 Transmitted 07:20 Code Status CODE 06/09/24 Transmitted 07:20 0.9% Ns 1000 Ml PHA 06/09/24 Transmitted 07:30 Ondansetron Hcl PHA 06/09/24 Transmitted (Zofran) 07:30 Complete Blood Count LAB 06/10/24 Verified 04:00 Comprehensive LAB 06/10/24 Verified Metabolic Panel 04:00 Condition: Serious PAZ 06/09/24 In Process 07:20 Acetaminophen Tablet PHA 06/09/24 Transmitted (Tylenol Tablet) 07:30 Clear Liq Diet DIET 06/09/24 Transmitted Breakfast Date of Service: Jun 09, 2024 Billing Provider: CATINA WEEKS Common Visit Codes: [id number]-[id number] INP/OBS CARE (MOD) CATINA WEEKS Jun 09, 2024 08:22
[2024-06-09] MEDS: metroNIDAZOLE 500MG/100ML 100 ML IV ONE (08:28)
[2024-06-09] MEDS: SODIUM CHLORIDE 0.9% 1,000 ML IV ONE (08:28)
[2024-06-09] MEDS: SODIUM CHLORIDE 0.9% 1,000 ML IV SCH (08:29)
[2024-06-09] MEDS ORDERED: PATIENTS OWN MEDICATION (Lisinopril 1 TAB) PO SCH (10:00)
[2024-06-09] MEDS: MORPHINE SULF 15mg ER tab PO SCH (10:45)
[2024-06-09] MEDS: LISINOPRIL 20 MG TAB PO SCH (10:45)
[2024-06-09 10:58] VITALS: PULSE 57; RESP 16; O2SAT 95
[2024-06-09] MEDS: amLODIPine BESYLATE 5 MG TAB PO SCH (11:03)
[2024-06-09] MEDS ORDERED: LOPERAMIDE HCL 2 MG CAP/TAB PO PRN (12:15)
--- NOTE | 2024-06-09 12:28 | DVHINCON2 ---
GI Consult Consult Note GI consult note Date of Consultation: 05/1924 Chief Complaint: GI bleed/enteritis Referring Physician: Yuliana CASTORENA H&P: 58-year-old female with PMH of HTN and chronic pain, presented to ER with diarrhea and bloody stool Patient complains of loose and watery stool for the past two days, brown in color with slight red blood Patient complains of slight abdominal pain. No nausea or vomiting Patient denies any recent antibiotic use. No recent travel Last colonoscopy two years ago WNL per patient Past Medical History: HTN, chronic low back pain Past Surgical History: None Social History: Less than one pack per day smoking, denies drinking ETOH and use of illegal drugs. Family History: Noncontributory Review of Systems: Constitutional: no fever, chill, weight loss HEENT: no eye pain, no hearing loss, no oral lesion, no scleral icterus Heart: no chest pain, no chest pressure Lung: no cough, no dyspnea with exertion Abdomen: see HPI Physical exam: General: NAD, AAOX3 Chest: lung ramos clear to auscultation Heart: RRR, no murmur Abdomen: non-distended, no tenderness to palpation, +BS Labs: Labs Test 06/09/24 08:00 06/09/24 03:50 Range/Units Stool Occult Blood Negative Negative Stool Occult Blood Sample #3 Negative Stool for White Cells None seen White Blood Count 7.9 4.4-10.8 10^3/uL Red Blood Count 4.68 4.0-5.20 10^6/uL Hemoglobin 15.3 12.2-16.2 g/dL Hematocrit 44.4 36.0-46.0 % Mean Corpuscular Volume 94.9 80.0-100.0 fL Mean Corpuscular Hemoglobin 32.7 H 28.0-32.0 pg Mean Corpuscular Hemoglobin Concent 34.5 32.0-36.0 g/dL Red Cell Distribution Width 13.2 11.8-14.3 % Platelet Count 216 140-450 10^3/uL Mean Platelet Volume 8.0 6.9-10.8 fL Neutrophils (%) (Auto) 57.7 37.0-80.0 % Lymphocytes (%) (Auto) 32.2 10.0-50.0 % Monocytes (%) (Auto) 7.9 0.0-12.0 % Eosinophils (%) (Auto) 1.2 0.0-7.0 % Basophils (%) (Auto) 1.0 0.0-2.0 % Neutrophils # (Auto) 4.6 1.6-8.6 10 ^3/uL Lymphocytes # (Auto) 2.5 0.4-5.4 10 ^3/uL Monocytes # (Auto) 0.6 0-1.3 10 ^3/uL Eosinophils # (Auto) 0.1 0-0.8 10 ^3/uL Basophils # (Auto) 0.1 0-0.2 10 ^3/uL Nucleated Red Blood Cells 0.0 % Prothrombin Time 11.1 9.3-11.8 sec Prothrombin Time INR 1.05 0.9-1.15 Activated Partial Thromboplast Time 25.7 24.5-34.5 SEC Sodium Level 141 136-145 mmol/L Potassium Level 3.4 L 3.5-5.1 mmol/L Chloride Level 110 H 98-107 mmol/L Carbon Dioxide Level 21 20-31 mmol/L Anion Gap 10 5-15 Blood Urea Nitrogen 11 9-23 mg/dL Creatinine 0.89 0.550-1.02 mg/dL Glomerular Filtration Rate Calc 74 >90 mL/min BUN/Creatinine Ratio 12.4 10.0-20.0 Serum Glucose 96 74-106 mg/dL Calcium Level 10.5 H 8.7-10.4 mg/dL Imaging: CT abdomen pelvis IMPRESSION: 1. Fluid-filled small bowel loops without a definite transition, which may reflect enteritis of infectious or inflammatory etiology. Liquid stool in the colon suggesting diarrhea. Assessment: Diarrhea Possible enteritis Plan: Discussed with Dr. Mckee Stool for WBC, bacterial culture and C diff Continue antibiotics Imodium We will continue to monitor the patient Discussed plan with patient and RN Thank you for this consult Date of Service: Jun 09, 2024 Billing Provider: NINA WELLER Common Visit Codes: CONSULT ONLY Consultation Codes: 71411-[id number] CONSULT <60MIN NINA WELLER Jun 09, 2024 12:28
[2024-06-09] MEDS: metroNIDAZOLE 500MG/100ML 100 ML IV SCH (14:20)
[2024-06-09] MEDS: HYDROcodone-ACET 10/325MG TAB PO PRN (15:20)
[2024-06-09 16:40] VITALS: BP 119/67; PULSE 57; RESP 16; TEMP 98.2; O2SAT 95
[2024-06-09] MEDS: cefTRIAXone 1GM/50ML D5W 50 ML IV SCH (16:45)
[2024-06-09] MEDS: SOD CHL 0.9%/ KCL 40MEQ 1,000 ML IV ONE (16:45)
--- NOTE | 2024-06-09 16:47 | DVHPN2 ---
Subjective Patient continues to report having rectal pain. Reports that her stools are less frequent. Reviewed: Care Plan, H&P, Labs, Medications Changes from previous H/P or p: No Changes General: Per HPI Eyes: No Pain, No Vision change, No Conjunctivae inflammation, No Eyelid inflammation, No Other, No Redness ENT: No Ear pain, No Ear discharge, No Nose pain, No Nose discharge, No Nose congestion, No Mouth pain, No Mouth swelling, No Throat pain, No Throat swelling, No Other Cardiovascular: No Chest Pain, No Palpitations, No Orthopnea, No Paroxysmal Noc. Dyspnea, No Edema, No Lt Headedness, No Other Respiratory: No Cough, No Dry, No Shortness of breath, No SOB with excertion, No Wheezing, No Hemoptysis, No Pleuritic Pain, No Sputum, No Other Gastrointestinal: Nausea; No Vomiting; Abdominal Pain, Diarrhea; No Constipation, No Melena, No Hematochezia, No Other Genitourinary: No Dysuria, No Frequency, No Incontinence, No Hematuria, No Retention, No Other Musculoskeletal: No other, No neck pain, No shoulder pain, No arm pain, No back pain, No hand pain, No leg pain, No foot pain Skin: No Rash, No Lesions, No Jaundice, No Bruising, No Other Objective Vitals Vital Signs Date Time Temp Pulse Resp B/P (MAP) Pulse Ox O2 Delivery O2 Flow Rate FiO2 06/09/24 16:00 97.9 58 15 119/60 (79) 98 97.9 06/09/24 08:00 Room Air* 0 21 General Appearance: Alert, Oriented X3, Cooperative, mild distress HEENT: Atraumatic, PERRLA Neck: Carotid [place] Cardiovascular: Normal S1, Normal S2 Abdomen: Normal bowel sounds, Soft, No tenderness, No hepatospenomegaly, No masses Musculoskeletal: Normal sensory function, Normal motor function Neuro: Normal gait, Normal speech Psych/Mental Status: Mental status NL, Mood NL Medications Current Medications Medications Dose Ordered Sig/Zenon Route Start Time Stop Time Status Last Admin Dose Admin Sodium Chloride 1,000 ml @ 75 mls/hr [id number] IV 06/09/24 07:30 06/09/24 08:29 75 MLS/HR Ondansetron HCl 4 mg Q4HP PRN IV 06/09/24 07:30 Acetaminophen 650 mg Q6HP PRN PO 06/09/24 07:30 Metronidazole 100 ml @ 100 mls/hr Q8HR IV 06/09/24 14:00 06/09/24 14:20 100 MLS/HR Amlodipine Besylate 10 mg DAILY PO 06/09/24 10:00 06/09/24 11:03 10 MG Acetaminophen/ Hydrocodone Bitart 1 tab TIDPRN PRN PO 06/09/24 08:00 06/09/24 15:20 1 TAB Morphine Sulfate 15 mg DAILY PO 06/09/24 10:00 Patient Own Medication 1 tab DAILY PO 06/09/24 10:00 UNV Lisinopril 40 mg DAILY PO 06/09/24 10:00 06/09/24 10:45 40 MG Loperamide HCl 2 mg PRN PRN PO 06/09/24 12:15 UNV Laboratory Results Laboratory Tests 06/09/24 03:50 Chemistry Test 06/09/24 03:50 Calcium Level 10.5 mg/dL (8.7-10.4) H Coagulation Test 06/09/24 03:50 Prothrombin Time 11.1 sec (9.3-11.8) Prothrombin Time INR 1.05 (0.9-1.15) Activated Partial Thromboplast Time 25.7 SEC (24.5-34.5) Microbiology Microbiology Date/Time Source Procedure Growth Status 06/09/24 08:00 Stool Stool Culture - Preliminary Resulted 06/09/24 08:00 Stool Shiga Toxin I & II - Final Resulted 06/09/24 08:00 Stool Clostridium difficile Toxin Assay - Final Resulted Labs and/or images reviewed: Image(s) reviewed by me Assessment/Plan Assessment/Plan Impression: -acute enteritis -obesity -primary hypertension -nicotine dependence -hypokalemia Plan: -continue Flagyl, add IV Rocephin -stool culture -antihypertensives -clear liquid diet -GI consultation -repeat labs in a.m. -potassium replacement Total time spent with patient discussing and formulating plan of care: 35 minutes. This medical document was created using an electronic medical record system with [employer] dictation system. Although this document has been carefully reviewed, there may still be some phonetic and typographical errors. These areas are purely typographical due to imperfections of the software programs, and do not reflect any compromise in the patient's medical care. 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 - PIA HEATH NP Procedure Category Date Status Time * Insurance Legal Assistant CONS 06/09/24 Transmitted Consult Ns W Potassium 40meq PHA 06/09/24 Verified 16:45 Ceftriaxone Ivpb PHA 06/09/24 Verified Rocephin 16:45 Date of Service: Jun 09, 2024 Billing Provider: PIA HEATH NP Common Visit Codes: [id number] INP/OBS CARE(HIGH) PIA HEATH NP Jun 09, 2024 16:47
[2024-06-09 21:00] VITALS: BP 127/68; PULSE 60; RESP 18; TEMP 97.8; O2SAT 98
[2024-06-10] VITALS (8 sets, daily range): BP systolic 101–156; BP diastolic 53–82; PULSE 50–82; RESP 16–20; TEMP 97.1–98.1; O2SAT 96–100
[2024-06-10 05:22] LABS: Basophils # (auto) 0.1 10 ^3/uL (0-0.2); Eosinophils # (auto) 0.1 10 ^3/uL (0-0.8); Eosinophils % (auto) 1.6 % (0.0-7.0); Hematocrit 40.3 % (36.0-46.0); Hemoglobin 14.3 g/dL (12.2-16.2); Lymphocytes # (auto) 2.6 10 ^3/uL (0.4-5.4); Lymphocytes % (auto) 36.2 % (10.0-50.0); Mean Corpuscular Hemoglobin 33.3 pg (28.0-32.0); Mean Corpuscular Hgb Conc. 35.4 g/dL (32.0-36.0); Mean Corpuscular Volume 93.9 fL (80.0-100.0); Monocytes # (auto) 0.6 10 ^3/uL (0-1.3); Monocytes % (auto) 8.9 % (0.0-12.0); Neutrophils # (auto) 3.7 10 ^3/uL (1.6-8.6); Neutrophils % (auto) 52.3 % (37.0-80.0); Nucleated Red Blood Cells % 0.1 %; Platelet Count (auto) 228 10^3/uL (140-450); Red Blood Cells 4.29 10^6/uL (4.0-5.20); Red Cell Distribution Width 13.2 % (11.8-14.3); White Blood Cell 7.2 10^3/uL (4.4-10.8)
[2024-06-10 05:47] LABS: Albumin 4.2 g/dL (3.2-4.8); Alkaline Phosphatase 77 U/L (46-116); Anion Gap 9 (5-15); BUN/Creatinine Ratio 8.4 (10.0-20.0); Bilirubin, Total 0.6 mg/dL (0.2-1.0); Calcium 9.9 mg/dL (8.7-10.4); Glucose 89 mg/dL (74-106); Total Protein 6.5 g/dL (5.7-8.2)
[2024-06-10 05:51] LABS: Alanine Aminotransferase 9 U/L (7-40); Aspartate Aminotransferase 8 U/L (13-40); Blood Urea Nitrogen 7 mg/dL (9-23); Carbon Dioxide 20 mmol/L (20-31); Chloride 113 mmol/L (98-107); Sodium 142 mmol/L (136-145)
--- NOTE | 2024-06-10 11:43 | DVHPN2 ---
Subjective Patient continues to report having rectal pain. Reports that her stools are less frequent. Reviewed: Care Plan, H&P, Labs, Medications Changes from previous H/P or p: No Changes General: Per HPI Eyes: No Pain, No Vision change, No Conjunctivae inflammation, No Eyelid inflammation, No Other, No Redness ENT: No Ear pain, No Ear discharge, No Nose pain, No Nose discharge, No Nose congestion, No Mouth pain, No Mouth swelling, No Throat pain, No Throat swelling, No Other Cardiovascular: No Chest Pain, No Palpitations, No Orthopnea, No Paroxysmal Noc. Dyspnea, No Edema, No Lt Headedness, No Other Respiratory: No Cough, No Dry, No Shortness of breath, No SOB with excertion, No Wheezing, No Hemoptysis, No Pleuritic Pain, No Sputum, No Other Gastrointestinal: Nausea; No Vomiting; Abdominal Pain, Diarrhea; No Constipation, No Melena, No Hematochezia, No Other Genitourinary: No Dysuria, No Frequency, No Incontinence, No Hematuria, No Retention, No Other Musculoskeletal: No other, No neck pain, No shoulder pain, No arm pain, No back pain, No hand pain, No leg pain, No foot pain Skin: No Rash, No Lesions, No Jaundice, No Bruising, No Other Objective Vitals Vital Signs Date Time Temp Pulse Resp B/P (MAP) Pulse Ox O2 Delivery O2 Flow Rate FiO2 06/10/24 08:38 132/67 06/10/24 08:00 51 Room Air* 0 21 06/10/24 05:00 97.6 17 100 97.6 Intake/Output Intake and Output 06/10/24 07:00 Intake Total 2325 ml Output Total 400 ml Balance 1925 ml Intake Oral 450 ml IV Total 1875 ml Output Stool Total 400 ml # Bowel Movements 2 General Appearance: Alert, Oriented X3, Cooperative, mild distress HEENT: Atraumatic, PERRLA Neck: Carotid [place] Cardiovascular: Normal S1, Normal S2 Abdomen: Normal bowel sounds, Soft, No tenderness, No hepatospenomegaly, No masses Musculoskeletal: Normal sensory function, Normal motor function Neuro: Normal gait, Normal speech Psych/Mental Status: Mental status NL, Mood NL Medications Current Medications Medications Dose Ordered Sig/Zenon Route Start Time Stop Time Status Last Admin Dose Admin Ondansetron HCl 4 mg Q4HP PRN IV 06/09/24 07:30 Acetaminophen 650 mg Q6HP PRN PO 06/09/24 07:30 Metronidazole 100 ml @ 100 mls/hr Q8HR IV 06/09/24 14:00 06/10/24 05:08 100 MLS/HR Amlodipine Besylate 10 mg DAILY PO 06/09/24 10:00 06/10/24 08:38 10 MG Acetaminophen/ Hydrocodone Bitart 1 tab TIDPRN PRN PO 06/09/24 08:00 06/10/24 08:37 1 TAB Morphine Sulfate 15 mg DAILY PO 06/09/24 10:00 Patient Own Medication 1 tab DAILY PO 06/09/24 10:00 UNV Lisinopril 40 mg DAILY PO 06/09/24 10:00 06/10/24 08:37 40 MG Loperamide HCl 2 mg PRN PRN PO 06/09/24 12:15 Ceftriaxone Sodium 50 ml @ 100 mls/hr DAILY@09 IV 06/09/24 16:45 06/10/24 08:38 100 MLS/HR Laboratory Results Laboratory Tests 06/10/24 05:06 Chemistry Test 06/10/24 05:06 Albumin 4.2 g/dL (3.2-4.8) Calcium Level 9.9 mg/dL (8.7-10.4) Total Protein 6.5 g/dL (5.7-8.2) LFT Test 06/10/24 05:06 Alanine Aminotransferase (ALT) 9 U/L (7-40) Alkaline Phosphatase 77 U/L (46-116) Aspartate Amino Transferase (AST) 8 U/L (13-40) L Total Bilirubin 0.6 mg/dL (0.2-1.0) Microbiology Microbiology Date/Time Source Procedure Growth Status 06/09/24 08:00 Stool Stool Culture - Preliminary Resulted 06/09/24 08:00 Stool Shiga Toxin I & II - Final Resulted 06/09/24 08:00 Stool Clostridium difficile Toxin Assay - Final Resulted Labs and/or images reviewed: Labs reviewed by me, Image(s) reviewed by me Assessment/Plan Assessment/Plan Impression: -acute enteritis -obesity -primary hypertension -nicotine dependence -hypokalemia Plan: Events: Reports that her bowel movements have decreased, with her bowels now formed. Patient denies any abdominal pain. -advance diet -continue Flagyl, add IV Rocephin -stool culture: Pending -antihypertensives -GI consultation Total time spent with patient discussing and formulating plan of care: 35 minutes. This medical document was created using an electronic medical record system with [employer] dictation system. Although this document has been carefully reviewed, there may still be some phonetic and typographical errors. These areas are purely typographical due to imperfections of the software programs, and do not reflect any compromise in the patient's medical care. 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 - PIA HEATH NP Procedure Category Date Status Time * Cooperative Education Director CONS 06/09/24 Transmitted Consult Ceftriaxone 1gm/50ml PHA 06/09/24 In Process D5w (Rocephin) 16:45 Date of Service: Jun 10, 2024 Billing Provider: PIA HEATH NP Common Visit Codes: [id number] INP/OBS CARE(HIGH) PIA HEATH NP Jun 10, 2024 11:43
--- NOTE | 2024-06-10 12:39 | DVHPN2 ---
Subjective Patient admits to improvement in his symptoms Only one bowel movement today, and stool is more formed than it has been No nausea or vomit No melena or red blood in stool Reviewed: Care Plan, H&P, Labs, Medications Changes from previous H/P or p: No Changes General: Per HPI Eyes: No Pain, No Vision change, No Conjunctivae inflammation, No Eyelid inflammation, No Other, No Redness ENT: No Ear pain, No Ear discharge, No Nose pain, No Nose discharge, No Nose congestion, No Mouth pain, No Mouth swelling, No Throat pain, No Throat swelling, No Other Cardiovascular: No Chest Pain, No Palpitations, No Orthopnea, No Paroxysmal Noc. Dyspnea, No Edema, No Lt Headedness, No Other Respiratory: No Cough, No Dry, No Shortness of breath, No SOB with excertion, No Wheezing, No Hemoptysis, No Pleuritic Pain, No Sputum, No Other Gastrointestinal: Nausea; No Vomiting; Abdominal Pain, Diarrhea; No Constipation, No Melena, No Hematochezia, No Other Genitourinary: No Dysuria, No Frequency, No Incontinence, No Hematuria, No Retention, No Other Musculoskeletal: No other, No neck pain, No shoulder pain, No arm pain, No back pain, No hand pain, No leg pain, No foot pain Skin: No Rash, No Lesions, No Jaundice, No Bruising, No Other Objective Vitals Vital Signs Date Time Temp Pulse Resp B/P (MAP) Pulse Ox O2 Delivery O2 Flow Rate FiO2 06/10/24 08:38 132/67 06/10/24 08:00 51 Room Air* 0 21 06/10/24 05:00 97.6 17 100 97.6 Intake/Output Intake and Output 06/10/24 07:00 Intake Total 2325 ml Output Total 400 ml Balance 1925 ml Intake Oral 450 ml IV Total 1875 ml Output Stool Total 400 ml # Bowel Movements 2 General Appearance: Alert, Oriented X3, Cooperative, No acute distress, mild distress, moderate distress, severe distress, Other HEENT: Atraumatic, PERRLA Neck: Carotid [place] Lungs: Clear to auscultation, Normal air movement, Other Cardiovascular: Regular rate, Normal S1, Normal S2, No murmurs, Gallops, Rubs, Other Abdomen: Normal bowel sounds, Soft, No tenderness, No hepatospenomegaly, No masses, Other Musculoskeletal: Normal sensory function, Normal motor function Neuro: Normal gait, Normal speech Psych/Mental Status: Mental status NL, Mood NL Medications Current Medications Medications Dose Ordered Sig/Zenon Route Start Time Stop Time Status Last Admin Dose Admin Ondansetron HCl 4 mg Q4HP PRN IV 06/09/24 07:30 Acetaminophen 650 mg Q6HP PRN PO 06/09/24 07:30 Metronidazole 100 ml @ 100 mls/hr Q8HR IV 06/09/24 14:00 06/10/24 05:08 100 MLS/HR Amlodipine Besylate 10 mg DAILY PO 06/09/24 10:00 06/10/24 08:38 10 MG Acetaminophen/ Hydrocodone Bitart 1 tab TIDPRN PRN PO 06/09/24 08:00 06/10/24 08:37 1 TAB Morphine Sulfate 15 mg DAILY PO 06/09/24 10:00 Patient Own Medication 1 tab DAILY PO 06/09/24 10:00 UNV Lisinopril 40 mg DAILY PO 06/09/24 10:00 06/10/24 08:37 40 MG Loperamide HCl 2 mg PRN PRN PO 06/09/24 12:15 Ceftriaxone Sodium 50 ml @ 100 mls/hr DAILY@09 IV 06/09/24 16:45 06/10/24 08:38 100 MLS/HR Laboratory Results Laboratory Tests 06/10/24 05:06 Chemistry Test 06/10/24 05:06 Albumin 4.2 g/dL (3.2-4.8) Calcium Level 9.9 mg/dL (8.7-10.4) Total Protein 6.5 g/dL (5.7-8.2) LFT Test 06/10/24 05:06 Alanine Aminotransferase (ALT) 9 U/L (7-40) Alkaline Phosphatase 77 U/L (46-116) Aspartate Amino Transferase (AST) 8 U/L (13-40) L Total Bilirubin 0.6 mg/dL (0.2-1.0) Microbiology Microbiology Date/Time Source Procedure Growth Status 06/09/24 08:00 Stool Stool Culture - Preliminary Resulted 06/09/24 08:00 Stool Shiga Toxin I & II - Final Resulted 06/09/24 08:00 Stool Clostridium difficile Toxin Assay - Final Resulted Labs and/or images reviewed: Labs reviewed by me, Image(s) reviewed by me Assessment/Plan Assessment/Plan Diarrhea Possible enteritis Plan: Discussed with Dr. Mckee Stool test negative Advance diet as tolerated Outpatient follow-up in GI clinic recommended in six weeks Plan discussed with: Patient Date of Service: Jun 10, 2024 Billing Provider: NINA WELLER Common Visit Codes: [id number] INP/OBS CARE(MOD) NINA WELLER Jun 10, 2024 12:39
[2024-06-11 01:00] VITALS: BP 126/74; PULSE 61; RESP 18; TEMP 97.9; O2SAT 96
[2024-06-11 05:00] VITALS: BP 142/82; PULSE 55; RESP 18; TEMP 97.9; O2SAT 100
[2024-06-11 09:00] VITALS: BP 146/85; PULSE 69; RESP 18; TEMP 98; O2SAT 99
[2024-06-11 13:00] VITALS: BP 149/81; PULSE 58; RESP 18; TEMP 98.1; O2SAT 100
--- NOTE | 2024-06-11 13:11 | DVHPN2 ---
Progress Note Date Seen: Jun 11, 2024 Resident Creating Document: EDITH MANNING RESIDENT Medical Necessity Reason Pt with a Central, PICC or Fol: No Subjective Review of Systems Patient is a 58-year-old female with past medical history of hypertension, chronic pain, who came in due to diarrhea with bloody stool. Patient complains of loose and watery stool for the past 2 days, brown in color with slight lead red blood. Associated with abdominal pain which is mild in nature, denies any nausea or vomiting, denies any recent antibiotic or travel. Last colonoscopy was 2 years ago which was within normal limits. Patient was seen and examined at bedside, reports improved symptoms. Plus bowel movement was yesterday, normal in consistency. Denies any nausea or vomiting. Objective vital signs Vital Sign Date Time Temp Pulse Resp B/P (MAP) Pulse Ox O2 Delivery O2 Flow Rate FiO2 06/11/24 09:23 146/85 06/11/24 09:00 98.0 69 18 99 98.0 06/11/24 08:05 Room Air* 0 21 Total Intake and Output 06/10/24 06/10/24 06/11/24 15:00 23:00 07:00 Intake Total 150 ml 350 ml 600 ml Balance 150 ml 350 ml 600 ml medications Current Medications Medications Dose Ordered Sig/Zenon Route Start Time Stop Time Status Last Admin Dose Admin Ondansetron HCl 4 mg Q4HP PRN IV 06/09/24 07:30 Acetaminophen 650 mg Q6HP PRN PO 06/09/24 07:30 Metronidazole 100 ml @ 100 mls/hr Q8HR IV 06/09/24 14:00 06/11/24 05:42 100 MLS/HR Amlodipine Besylate 10 mg DAILY PO 06/09/24 10:00 06/11/24 09:23 10 MG Acetaminophen/ Hydrocodone Bitart 1 tab TIDPRN PRN PO 06/09/24 08:00 06/10/24 08:37 1 TAB Morphine Sulfate 15 mg DAILY PO 06/09/24 10:00 06/11/24 09:22 15 MG Patient Own Medication 1 tab DAILY PO 06/09/24 10:00 UNV Lisinopril 40 mg DAILY PO 06/09/24 10:00 06/11/24 09:23 40 MG Loperamide HCl 2 mg PRN PRN PO 06/09/24 12:15 Ceftriaxone Sodium 50 ml @ 100 mls/hr DAILY@09 IV 06/09/24 16:45 06/11/24 09:20 100 MLS/HR Examination General Appearance: Alert, Oriented X3, Cooperative, No acute distress, mild distress, moderate distress, severe distress, Other HEENT: Atraumatic, PERRLA Neck: Carotid [place] Lungs: Clear to auscultation, Normal air movement, Other Cardiovascular: Regular rate, Normal S1, Normal S2, No murmurs, Gallops, Rubs, Other Abdomen: Normal bowel sounds, Soft, No tenderness, No hepatospenomegaly, No masses, Other Musculoskeletal: Normal sensory function, Normal motor function Neuro: Normal gait, Normal speech Psych/Mental Status: Mental status NL, Mood NL laboratory and microbiology Laboratory Tests 06/10/24 05:06 Test 06/10/24 05:06 Range/Units Serum Glucose 89 74-106 mg/dL Microbiology Date/Time Source Procedure Growth Status 06/09/24 08:00 Stool Stool Culture - Final Complete 06/09/24 08:00 Stool Shiga Toxin I & II - Final Complete 06/09/24 08:00 Stool Clostridium difficile Toxin Assay - Final Complete Labs and/or images reviewed: Labs reviewed by me, Image(s) reviewed by me Problem List/Assessment/Plan Problem List/Assessment/Plan Diarrhea secondary to probable viral gastroenteritis Dehydration Hypokalemia Obesity Plan: Stool occult blood negative, stool white blood cells negative [place] jej[place], E coli and C diff negative Patient on ceftriaxone and metronidazole Follow up with GI in 4-6 week for outpatient elective colonoscopy Thank you so much for the opportunity to consult on your patient. GI team will follow the patient. In case of any questions or concerns please feel free to reach out. Plan discussed with Dr. Mckee Plan discussed with: Patient, Other (RN) Dietary Evaluation Review Comments: 1) Continue Regular diet as tolerated 2) Encourage continued good PO intake >75% of meals 3) Monitor/treat GI sx, noted improvement w/ Imodium Expected Outcomes/Goals: Improved GI sx, weight maintenance, maintain adequate oral intakes. EDITH MANNING RESIDENT Jun 11, 2024 13:11
--- NOTE | 2024-06-11 14:48 | DVHDS2 ---
Discharge Summary Date of Admission Jun 09, 2024 at 07:20 Date of Discharge: Jun 11, 2024 Admitting Diagnosis Enteritis Labs/Diagnostic Data: Laboratory Results Test 06/10/24 05:06 06/09/24 08:00 06/09/24 03:50 White Blood Count 7.2 10^3/uL (4.4-10.8) Red Blood Count 4.29 10^6/uL (4.0-5.20) Hemoglobin 14.3 g/dL (12.2-16.2) Hematocrit 40.3 % (36.0-46.0) Mean Corpuscular Volume 93.9 fL (80.0-100.0) Mean Corpuscular Hemoglobin 33.3 pg (28.0-32.0) Mean Corpuscular Hemoglobin Concent 35.4 g/dL (32.0-36.0) Red Cell Distribution Width 13.2 % (11.8-14.3) Platelet Count 228 10^3/uL (140-450) Mean Platelet Volume 7.0 fL (6.9-10.8) Neutrophils (%) (Auto) 52.3 % (37.0-80.0) Lymphocytes (%) (Auto) 36.2 % (10.0-50.0) Monocytes (%) (Auto) 8.9 % (0.0-12.0) Eosinophils (%) (Auto) 1.6 % (0.0-7.0) Basophils (%) (Auto) 1.0 % (0.0-2.0) Neutrophils # (Auto) 3.7 10 ^3/uL (1.6-8.6) Lymphocytes # (Auto) 2.6 10 ^3/uL (0.4-5.4) Monocytes # (Auto) 0.6 10 ^3/uL (0-1.3) Eosinophils # (Auto) 0.1 10 ^3/uL (0-0.8) Basophils # (Auto) 0.1 10 ^3/uL (0-0.2) Nucleated Red Blood Cells 0.1 % Sodium Level 142 mmol/L (136-145) Potassium Level 4.0 mmol/L (3.5-5.1) Chloride Level 113 mmol/L (98-107) Carbon Dioxide Level 20 mmol/L (20-31) Anion Gap 9 (5-15) Blood Urea Nitrogen 7 mg/dL (9-23) Creatinine 0.83 mg/dL (0.550-1.02) Glomerular Filtration Rate Calc 81 mL/min (>90) BUN/Creatinine Ratio 8.4 (10.0-20.0) Serum Glucose 89 mg/dL (74-106) Calcium Level 9.9 mg/dL (8.7-10.4) Total Bilirubin 0.6 mg/dL (0.2-1.0) Aspartate Amino Transferase (AST) 8 U/L (13-40) Alanine Aminotransferase (ALT) 9 U/L (7-40) Alkaline Phosphatase 77 U/L (46-116) Total Protein 6.5 g/dL (5.7-8.2) Albumin 4.2 g/dL (3.2-4.8) Stool Occult Blood Negative (Negative) Stool Occult Blood Sample #3 (Negative) Stool for White Cells None seen Prothrombin Time 11.1 sec (9.3-11.8) Prothrombin Time INR 1.05 (0.9-1.15) Activated Partial Thromboplast Time 25.7 SEC (24.5-34.5) Other Laboratory Tests 06/10/24 05:06 Brief Hx & Hospital Course: History of Present Illness Cara Samaniego is a 58-year-old female with past medical history of hypertension and chronic pain, who came to the hospital due to diarrhea and bloody stool. Patient states she began having diarrhea with associated abdominal pain about 2 days ago. The diarrhea and pain worsened over the coarse of the 2 days and she began noticing what she thought was blood so she came to the hospital. Course of hospitalization: Patient was started on clear liquid diet. Antibiotics were started in the form of Flagyl and Rocephin. Patient's abdominal pain as well as diarrhea has resolved. Patient was diet has been advanced. She had her potassium replaced. Patient will be discharged home as instructed follow up with her PCP in 1-2 weeks. All questions answered. Physical examination General: Alert and Oriented x3. No acute distress. Well-nourished. Obese Eyes: EOMI. Anicteric. HENT: Moist mucous membranes. Lungs: Clear to auscultation bilaterally. No accessory muscle use. Cardiovascular: Regular rate and rhythm. No murmur. No JVD. Abdomen: Soft, non-tender and non-distended. No palpable masses. Extremities: No edema. Non-tender. Skin: No rashes or lesions. Warm. Neurologic: No focal neurological deficits. CN II-XII grossly intact, but not individually tested. Psychiatric: Cooperative. Appropriate mood and affect. Total time spent with patient discussing and formulating plan of care: 35 minutes. This medical document was created using an electronic medical record system with [employer] dictation system. Although this document has been carefully reviewed, there may still be some phonetic and typographical errors. These areas are purely typographical due to imperfections of the software programs, and do not reflect any compromise in the patient's medical care. Consults/Reason for consult GI Condition at Discharge: Fair Final Diagnosis/Problems List Acute gastroenteritis Secondary diagnosis: -obesity -primary hypertension -nicotine dependence -hypokalemia Discharge Disposition: Home Discharge Instruct/Medications Diet: Regular Activity: No Restrictions, As Tolerated Follow Up/Referral: Follow up with PCP in 1-2 weeks Medications: Continue all home medications 36 Discharge Statement: "Patient was advised to return to the ER or call 911 if any headaches, dizziness, shortness of breath, chest pain, abdominal pain, bleeding, fevers, or worsening of medical condition. Patient was counseled about treatment plan, medications, possible side effects, patientverbalized understanding. All questions were answered to the best of my ability. This discharge took greater then 30 minutes in planning, reviewing documentation, counseling the patient, and discussing with other team members." ASSESSMENT ASSESSMENT Assessment Acute gastroenteritis Date of Service: Jun 11, 2024 Billing Provider: PIA HEATH NP Common Visit Codes: [id number] DISCH DAY >30min PIA HEATH NP Jun 11, 2024 14:48
== END 2024-06-11 17:05 | disposition home or self-care (01) | DRG 392 ==
LOC: ER 03:30 → EDBD 03:30 → OVERFLOW 07:20 → EAST 17:42
PROVIDERS: ADMIT Nurse Practitioner Acute Care; ATTEND Nurse Practitioner Acute Care
DX: A08.4 Viral intestinal infection, unspecified (principal); G89.29 Other chronic pain; E87.6 Hypokalemia; E66.9 Obesity, unspecified; F17.210 Nicotine dependence, cigarettes, uncomplicated; I10 Essential (primary) hypertension; F41.9 Anxiety disorder, unspecified; E86.0 Dehydration; M54.50 Low back pain, unspecified; Z79.2 Long term (current) use of antibiotics; Z79.899 Other long term (current) drug therapy; Z68.31 Body mass index [BMI] 31.0-31.9, adult
CPT/HCPCS: 36415; 74177; 80048; 80053; 82270; 85025; 85048; 85610; 85730; 86850; 86900; 86901; 87045; 87427; 87493; 93005; 96365; 99291; G0378; J3490

== ENCOUNTER 2024-10-23 13:22 | Emergency (ER) | payer OTHER, MEDICAID ==
[~2024-10-23] VITALS: Ht 160 cm; Wt 79.1 kg
[~2024-10-23 13:22] MED LIST changes: -BUSP10TA90; -DOXY100C79 PO; +HYDR-4072 PO; +LISI40TA16 PO; +MORP1TAB12 PO
[2024-10-23] MEDS: SODIUM CHLORIDE 0.9% 1,000 ML IV ONE (15:45)
[2024-10-23 16:02] LABS: Urine Protein, UAD Negative (Negative)
[2024-10-23 16:07] LABS: Hematocrit 42.1 % (36.0-46.0); Hemoglobin 14.7 g/dL (12.2-16.2); Mean Corpuscular Hemoglobin 33.0 pg (28.0-32.0); Mean Corpuscular Volume 94.6 fL (80.0-100.0); Nucleated Red Blood Cells % 0.1 %
[2024-10-23 16:17] VITALS: BP 101/67; PULSE 81; RESP 16; TEMP 98.7; O2SAT 100
[2024-10-23 16:24] LABS: Alanine Aminotransferase 15 U/L (7-40); Albumin 4.5 g/dL (3.2-4.8); Alkaline Phosphatase 101 U/L (46-116); Anion Gap 10 (5-15); BUN/Creatinine Ratio 12.7 (10.0-20.0); Blood Urea Nitrogen 14 mg/dL (9-23); Calcium 9.9 mg/dL (8.7-10.4); Carbon Dioxide 26 mmol/L (20-31); Magnesium 2.1 mg/dL (1.6-2.6); Potassium 4.0 mmol/L (3.5-5.1); Sodium 144 mmol/L (136-145); Total Protein 6.7 g/dL (5.7-8.2)
[2024-10-23 16:25] LABS: Bilirubin, Total 0.5 mg/dL (0.2-1.0)
[2024-10-23 16:26] LABS: Chloride 108 mmol/L (98-107); Glucose 144 mg/dL (74-106)
--- NOTE | 2024-10-23 16:56 | ED.PDOC ---
History of Present Illness HPI Comments 59 y/o F presents with c/c generalized weakness, with associated dry mouth. Chief Complaint: General Weakness Time Seen by MD: 15:30 Primary Care Provider: GRAY Allergies: Coded Allergies: NO KNOWN ALLERGIES (Unverified , 11/04/12) Home Meds Active Scripts Metoprolol Tartrate (LOPRESSOR TABLET) 50 Mg Tb, 75 MG PO BID for 30 Days, #90 TAB 3 Refills Prov:PIA HEATH DECKHAND OYSTER DREDGE 01/27/24 Amlodipine Besylate (NORVASC TABLET) 5 Mg Tb, 10 MG PO DAILY for 30 Days, #60 TAB 2 Refills Prov:PIA HEATH DECKHAND OYSTER DREDGE 01/27/24 Reported Medications Lisinopril (Lisinopril) 40 Mg Tab, 1 TAB PO DAILY 06/09/24 Hydrocodone-Acetaminophen (Hydrocodone/Acetaminophen 10-325 mg) 1 Tab Tab, 1 TAB PO TIDPRN PRN 06/09/24 Morphine Sulfate (Morphine Sulfate Cr) 15 Mg Tab, 1 TAB PO DAILY 06/09/24 [Estravan] No Conflict Check 11/04/12 Mode of Arrival: Ambulatory Past Medical History PAST MEDICAL HISTORY: Anxiety, HTN Surgical History: Denies all surgeries 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: No Pertinent CRANBERRY BOG SUPERVISOR History Family History Family History: Unknown Social History Smoker: Cigarettes, Less Than 1 Pack/Day Alcohol: Occasionally Drugs: Denies Drug Use Lives In: Home All Other Systems: Reviewed and Negative (As per HPI) Physical Exam General Appearance: No Apparent Distress, Normal HEENT: Normal ENT Inspection, Pharynx Normal, TMs Normal Neck: Full Range of Motion, Non-Tender, Normal, Normal Inspection Respiratory: Chest Non-Tender, Lungs Clear, No Accessory Muscle Use, No Respiratory Distress, Normal Breath Sounds Cardiovascular: No Edema, No JVD, No Murmur, No Gallop, Normal Peripheral Pulses, Regular Rate/Rhythm Breast Exam: Deferred Gastrointestinal: No Organomegaly, Non Tender, No Pulsatile Mass, Normal Bowel Sounds, Soft Genitalia: Deferred Pelvic: Deferred Rectal: Deferred Extremities: No calf tenderness, Normal capillary refill, Normal inspection, Normal range of motion, Non-tender, No pedal edema Neurologic: Alert, manager market research II-XII nml as Tested, No Motor Deficits, Normal Affect, Normal Mood, No Sensory Deficits Cerebellar Function: Normal Reflexes: Normal Skin: Dry, Normal Color, Warm Peripheral Pulses: 1+ carotid (R), 1+ carotid (L) Lymphatic: No Adenopathy Was a procedure done? Was a procedure done?: No Differential Dx Considerations may include: dehydration, viral syndrome, electrolyte imbalance, UTI, among others X-Ray, Labs, Meds, VS Vital Signs Date Time Temp Pulse Resp B/P (MAP) Pulse Ox O2 Delivery O2 Flow Rate FiO2 10/23/24 16:17 98.7 81 16 101/67 (78) 100 98.7 10/23/24 16:17 81 16 100 Room Air 10/23/24 13:24 97.3 61 18 159/96 98 97.3 Lab Test 10/23/24 15:52 10/23/24 13:28 Range/Units White Blood Count 6.5 4.4-10.8 10^3/uL Red Blood Count 4.45 4.0-5.20 10^6/uL Hemoglobin 14.7 12.2-16.2 g/dL Hematocrit 42.1 36.0-46.0 % Mean Corpuscular Volume 94.6 80.0-100.0 fL Mean Corpuscular Hemoglobin 33.0 H 28.0-32.0 pg Mean Corpuscular Hemoglobin Concent 34.9 32.0-36.0 g/dL Red Cell Distribution Width 13.8 11.8-14.3 % Platelet Count 260 140-450 10^3/uL Mean Platelet Volume 7.6 6.9-10.8 fL Neutrophils (%) (Auto) 61.0 37.0-80.0 % Lymphocytes (%) (Auto) 27.0 10.0-50.0 % Monocytes (%) (Auto) 9.4 0.0-12.0 % Eosinophils (%) (Auto) 1.7 0.0-7.0 % Basophils (%) (Auto) 0.9 0.0-2.0 % Neutrophils # (Auto) 3.9 1.6-8.6 10 ^3/uL Lymphocytes # (Auto) 1.7 0.4-5.4 10 ^3/uL Monocytes # (Auto) 0.6 0-1.3 10 ^3/uL Eosinophils # (Auto) 0.1 0-0.8 10 ^3/uL Basophils # (Auto) 0.1 0-0.2 10 ^3/uL Nucleated Red Blood Cells 0.1 % Erythrocyte Sedimentation Rate 14 0-20 mm/hr Sodium Level 144 136-145 mmol/L Potassium Level 4.0 3.5-5.1 mmol/L Chloride Level 108 H 98-107 mmol/L Carbon Dioxide Level 26 20-31 mmol/L Anion Gap 10 5-15 Blood Urea Nitrogen 14 9-23 mg/dL Creatinine 1.10 H 0.550-1.02 mg/dL Glomerular Filtration Rate Calc 57 >90 mL/min BUN/Creatinine Ratio 12.7 10.0-20.0 Serum Glucose 144 H 74-106 mg/dL Calcium Level 9.9 8.7-10.4 mg/dL Magnesium Level 2.1 1.6-2.6 mg/dL Total Bilirubin 0.5 0.2-1.0 mg/dL Aspartate Amino Transferase (AST) 14 13-40 U/L Alanine Aminotransferase (ALT) 15 7-40 U/L Alkaline Phosphatase 101 46-116 U/L Troponin I High Sensitivity 4 </=34 ng/L Total Protein 6.7 5.7-8.2 g/dL Albumin 4.5 3.2-4.8 g/dL Urine Color Yellow Yellow Urine Clarity Clear Clear Urine pH 6.0 5.0-9.0 Urine Specific Millen 1.021 1.001-1.035 Urine Protein Negative Negative Urine Ketones Negative Negative Urine Blood Negative Negative /uL Urine Nitrite Negative Negative Urine Bilirubin Negative Negative Urine Urobilinogen Normal Negative mg/dL Urine Leukocyte Esterase Negative Negative /uL Urine RBC 5 0 - 4 /hpf Urine Microscopic WBC 1 0-5 /HPF Urine Squamous Epithelial Cells Few <5 /hpf Urine Bacteria None seen None Seen /hpf Urine Mucus Few None Seen Urine Glucose Normal Normal mg/dL Current Medications Medications (Trade) Dose Ordered Sig/Zenon Route Start Time Stop Time Status Last Admin Sodium Chloride 1,000 ml @ 1,000 mls/hr Q1H ONCE IV 10/23/24 15:45 10/23/24 16:44 DC 10/23/24 15:45 X-Ray, Labs, Meds, VS Comment This patient came to the emergency department complaining of generalized weakness dry skin and not feel good Laboratory data patient has hypertension and goes to pain management Urine is negative Troponin for CBC negative CMP all nor negative Magnesium 2.1 Sedimentation rate 14 Patient will be discharged home to follow up with your PCP Time of 1ST Reevaluation: 16:00 Reevaluation 1ST: Unchanged Time of 2ND Reevaluation: 16:58 Reevaluation 2ND: Unchanged Consultation: PCP Patient Education/Counseling: Diagnosis, Treatment, Prognosis, Need For Follow Up Family Education/Counseling: Diagnosis, Treatment, Prognosis, Need For Follow Up, No Family Present SEPSIS Sepsis Screen Date sepsis recognized/suspect: Oct 23, 2024 Time Sepsis recognized/suspect: 1327 Recent Procedure: No On Antibiotic Therapy: No Respiratory Rate >20: No Heart Rate >90: No Temp<36 C (96.8 F) or >38.3 C: No SBP <90 or MAP <65 mmHG: No New Acute Mental Status Change: No Is the patient on CPAP, BIPAP,: No Physician Orders Heplock Iv (10/23/24 15:37) Veneer Layer (10/23/24 15:37) Blood Pressure (10/23/24 15:37) Vital Signs Date Time Temp Pulse Resp B/P (MAP) Pulse Ox O2 Delivery O2 Flow Rate FiO2 10/23/24 16:17 98.7 81 16 101/67 (78) 100 98.7 10/23/24 16:17 81 16 100 Room Air 10/23/24 13:24 97.3 61 18 159/96 98 97.3 Laboratory Tests Test 10/23/24 15:52 White Blood Count 6.5 10^3/uL (4.4-10.8) Medications Medications Dose Ordered Sig/Zenon Route Start Time Stop Time Status Last Admin Dose Admin Sodium Chloride 1,000 ml @ 1,000 mls/hr Q1H ONCE IV 10/23/24 15:45 10/23/24 16:44 DC 10/23/24 15:45 Departure 1 Departure Time of Disposition: 16:59 Impression: Primary Impression: HTN (hypertension) Additional Impressions: Generalized weakness Dry skin Disposition: 01 HOME / SELF CARE / HOMELESS Condition: Stable Additional Instructions: Drink lots of fluids and you need to follow up with your PCP for further care Discharged With: Self Critical Care Note Critical Care Time?: No Stability Stability form required: No Heart Score Heart Score: Heart Score Response (Comments) Value History N/A 0 EKG N/A 0 Age 45-64 1 Risk Factors 1 or 2 risk factors 1 Troponin Normal limit 0 Total 2 I personally scribed for NAOMY MONTGOMERY MD ([email or web address]) on 10/23/24 at 16:56. Electronically submitted by Valentino Valenzuela ([email or web address]). NAOMY MONTGOMERY MD Oct 23, 2024 16:56
== END 2024-10-23 17:36 | disposition home or self-care (01) ==
LOC: ER 13:26
DX: L85.3 Xerosis cutis (principal); R53.1 Weakness; I10 Essential (primary) hypertension; F41.9 Anxiety disorder, unspecified; F17.210 Nicotine dependence, cigarettes, uncomplicated; F10.90 Alcohol use, unspecified, uncomplicated; Z79.899 Other long term (current) drug therapy; Y90.9 Presence of alcohol in blood, level not specified
CPT/HCPCS: 36415; 80053; 81001; 83735; 84484; 85025; 85652; 96360; 96361; 99283; J7030

== ENCOUNTER 2025-01-02 16:52 | Emergency (ER) | payer OTHER, MEDICAID ==
[~2025-01-02] VITALS: Ht 157.5 cm; Wt 74.6 kg
[2025-01-02 16:54] VITALS: BP 152/105; PULSE 70; RESP 15; TEMP 98.1; O2SAT 98
[2025-01-02 18:34] LABS: Hematocrit 43.5 % (36.0-46.0); Hemoglobin 14.9 g/dL (12.2-16.2); Mean Corpuscular Hemoglobin 33.0 pg (28.0-32.0); Mean Corpuscular Volume 96.4 fL (80.0-100.0); Nucleated Red Blood Cells % 0.1 %
--- NOTE | 2025-01-02 18:36 | DVH ---
Date: 01/02/2025 06:05 PM Examination: XY KUB ABDOMEN SINGLE VIEW History: constipation Comparison: None TECHNIQUE: Frontal views of the abdomen was obtained. FINDINGS: Bowel gas pattern is unremarkable. The lung bases are unremarkable. No acute osseous abnormality identified. IMPRESSION: 1. Nonobstructive bowel gas pattern. 2. Prominent stool throughout the colon may represent constipation.
[2025-01-02 18:50] LABS: Alanine Aminotransferase 14 U/L (7-40); Albumin 4.6 g/dL (3.2-4.8); Alkaline Phosphatase 83 U/L (46-116); Anion Gap 9 (5-15); BUN/Creatinine Ratio 10.8 (10.0-20.0); Blood Urea Nitrogen 10 mg/dL (9-23); Calcium 9.9 mg/dL (8.7-10.4); Carbon Dioxide 28 mmol/L (20-31); Glucose 93 mg/dL (74-106); Lipase 36 U/L (12-53); Potassium 3.6 mmol/L (3.5-5.1); Sodium 145 mmol/L (136-145); Total Protein 7.4 g/dL (5.7-8.2)
[2025-01-02 18:51] LABS: Bilirubin, Total 0.6 mg/dL (0.2-1.0)
[2025-01-02 18:53] LABS: Chloride 108 mmol/L (98-107)
[2025-01-02] MEDS ORDERED: POLY335015 PO (19:02)
--- NOTE | 2025-01-02 19:24 | ED.PDOC ---
History of Present Illness HPI Comments 59 y/o F presents with c/c of constipation, unintended weight loss, dehydration, and generalized weakness and itchiness. Denies any rectal or abdominal pain. Patient expresses concerns of possible GI blockage. Chief Complaint: Body Pain Time Seen by MD: 16:10 Primary Care Provider: GRAY Reviewed Notes: Nurses Notes, Medications, Allergies Allergies: Coded Allergies: NO KNOWN ALLERGIES (Unverified , 11/04/12) Home Meds Active Scripts Polyethylene Glycol 3350 (Miralax) 17 Gm Pow, 17 GM PO BID, #120 POW Prov:INO MATOS MD 01/02/25 Metoprolol Tartrate (LOPRESSOR TABLET) 50 Mg Tb, 75 MG PO BID for 30 Days, #90 TAB 3 Refills Prov:PIA HEATH NP 01/27/24 Amlodipine Besylate (NORVASC TABLET) 5 Mg Tb, 10 MG PO DAILY for 30 Days, #60 TAB 2 Refills Prov:PIA HEATH NP 01/27/24 Reported Medications Lisinopril (Lisinopril) 40 Mg Tab, 1 TAB PO DAILY 06/09/24 Hydrocodone-Acetaminophen (Hydrocodone/Acetaminophen 10-325 mg) 1 Tab Tab, 1 TAB PO TIDPRN PRN 06/09/24 Morphine Sulfate (Morphine Sulfate Cr) 15 Mg Tab, 1 TAB PO DAILY 06/09/24 [Estravan] No Conflict Check 11/04/12 Information Source: Patient Mode of Arrival: Ambulatory Severity: Moderate Duration: Since onset Prehospital treatment: None Past Medical History PAST MEDICAL HISTORY: Anxiety, HTN Surgical History: Denies all surgeries ACCOUNTING SYSTEMS MANAGER History: No Pertinent ACCOUNTING SYSTEMS MANAGER History Family History Family History: Unknown Social History Smoker: Cigarettes, Less Than 1 Pack/Day Alcohol: Occasionally Drugs: Denies Drug Use Lives In: Home All Other Systems: Reviewed and Negative (Comprehensive review of systems are negative unless stated in HPI) Physical Exam General Appearance: No Apparent Distress, Obese HEENT: Normal ENT Inspection, Pharynx Normal, TMs Normal Neck: Full Range of Motion, Non-Tender, Normal, Normal Inspection Respiratory: Chest Non-Tender, Lungs Clear, No Accessory Muscle Use, No Respiratory Distress, Normal Breath Sounds Cardiovascular: No Edema, No JVD, No Murmur, No Gallop, Normal Peripheral Pulses, Regular Rate/Rhythm Breast Exam: Deferred Gastrointestinal: No Organomegaly, Non Tender, No Pulsatile Mass, Normal Bowel Sounds, Soft Genitalia: Deferred Pelvic: Deferred Rectal: Deferred Extremities: No calf tenderness, Normal capillary refill, Normal inspection, Normal range of motion, Non-tender, No pedal edema Musculoskeletal : Apperance: Normal Neurologic: Alert, talent advisor II-XII nml as Tested, No Motor Deficits, Normal Affect, Normal Mood, No Sensory Deficits Cerebellar Function: Normal Reflexes: Normal Skin: Dry, Normal Color, Warm Lymphatic: No Adenopathy Was a procedure done? Was a procedure done?: No Differential Dx Considerations may include: constipation, bowel obstruction, viral syndrome, electrolyte imbalance, dehydration, among others X-Ray, Labs, Meds, VS Vital Signs Date Time Temp Pulse Resp B/P (MAP) Pulse Ox O2 Delivery O2 Flow Rate FiO2 01/02/25 16:54 98.1 70 15 152/105 98 98.1 Lab Test 01/02/25 18:08 Range/Units White Blood Count 7.8 4.4-10.8 10^3/uL Red Blood Count 4.51 4.0-5.20 10^6/uL Hemoglobin 14.9 12.2-16.2 g/dL Hematocrit 43.5 36.0-46.0 % Mean Corpuscular Volume 96.4 80.0-100.0 fL Mean Corpuscular Hemoglobin 33.0 H 28.0-32.0 pg Mean Corpuscular Hemoglobin Concent 34.2 32.0-36.0 g/dL Red Cell Distribution Width 14.6 H 11.8-14.3 % Platelet Count 243 140-450 10^3/uL Mean Platelet Volume 7.8 6.9-10.8 fL Neutrophils (%) (Auto) 47.5 37.0-80.0 % Lymphocytes (%) (Auto) 40.3 10.0-50.0 % Monocytes (%) (Auto) 8.5 0.0-12.0 % Eosinophils (%) (Auto) 2.9 0.0-7.0 % Basophils (%) (Auto) 0.8 0.0-2.0 % Neutrophils # (Auto) 3.7 1.6-8.6 10 ^3/uL Lymphocytes # (Auto) 3.1 0.4-5.4 10 ^3/uL Monocytes # (Auto) 0.7 0-1.3 10 ^3/uL Eosinophils # (Auto) 0.2 0-0.8 10 ^3/uL Basophils # (Auto) 0.1 0-0.2 10 ^3/uL Nucleated Red Blood Cells 0.1 % Sodium Level 145 136-145 mmol/L Potassium Level 3.6 3.5-5.1 mmol/L Chloride Level 108 H 98-107 mmol/L Carbon Dioxide Level 28 20-31 mmol/L Anion Gap 9 5-15 Blood Urea Nitrogen 10 9-23 mg/dL Creatinine 0.93 0.550-1.02 mg/dL Glomerular Filtration Rate Calc 70 >90 mL/min BUN/Creatinine Ratio 10.8 10.0-20.0 Serum Glucose 93 74-106 mg/dL Calcium Level 9.9 8.7-10.4 mg/dL Total Bilirubin 0.6 0.2-1.0 mg/dL Aspartate Amino Transferase (AST) 14 13-40 U/L Alanine Aminotransferase (ALT) 14 7-40 U/L Alkaline Phosphatase 83 46-116 U/L Total Protein 7.4 5.7-8.2 g/dL Albumin 4.6 3.2-4.8 g/dL Lipase 36 12-53 U/L [place] [id number] Ph: [phone] DIAGNOSTIC IMAGING Diagnostic Imaging Report : [id number] Signed PATIENT: ZENON MCGUIRE ACCT: [id number] UNIT: [id number] : 1965 LOC: ER ROOM / BED: / AGE / SEX: 59 / F ADM STATUS: REG ER SERVICE [id number] ORDERING PHYSICIAN: INO MATOS MD PROCEDURE(s): KUB - KUB ABDOMEN SINGLE VIEW REASON: constipation ORDER NUMBER(s): [id number], ACCESSION NUMBER(s): [id number] Date: 01/02/2025 06:05 PM Examination: XY KUB ABDOMEN SINGLE VIEW History: constipation Comparison: None TECHNIQUE: Frontal views of the abdomen was obtained. FINDINGS: Bowel gas pattern is unremarkable. The lung bases are unremarkable. No acute osseous abnormality identified. IMPRESSION: 1. Nonobstructive bowel gas pattern. 2. Prominent stool throughout the colon may represent constipation. ATED BY: EVA NIX Jr., DO DICTATED DATE/TIME: 01/02/251832 SIGNED BY: EVA NIX Jr., SIGNED DATE/TIME: 01/02/251832 CC: Time of 1ST Reevaluation: 16:40 Reevaluation 1ST: Unchanged Patient Education/Counseling: Treatment, Need For Follow Up Family Education/Counseling: No Family Present SEPSIS Sepsis Screen Date sepsis recognized/suspect: Jan 02, 2025 Time Sepsis recognized/suspect: 1657 Recent Procedure: No On Antibiotic Therapy: No Respiratory Rate >20: No Heart Rate >90: No Temp<36 C (96.8 F) or >38.3 C: No SBP <90 or MAP <65 mmHG: No New Acute Mental Status Change: No Is the patient on CPAP, BIPAP,: No Physician Orders Kub Abdomen Single View (01/02/25 17:58) Vital Signs Date Time Temp Pulse Resp B/P (MAP) Pulse Ox O2 Delivery O2 Flow Rate FiO2 01/02/25 16:54 98.1 70 15 152/105 98 98.1 Laboratory Tests Test 01/02/25 18:08 White Blood Count 7.8 10^3/uL (4.4-10.8) Departure 1 Departure Time of Disposition: 18:40 Impression: Primary Impression: Weight loss Additional Impressions: Malaise Constipation Disposition: 01 HOME / SELF CARE / HOMELESS Condition: Stable Additional Instructions: Follow up with your primary physician Return to the Emergency Department for any worsening symptoms or concerns e-Prescriptions Polyethylene Glycol 3350 (Miralax) 17 Gm Pow 17 GM PO BID, #120 POW Prov: INO MATOS MD 01/02/25 Discharged With: Self Critical Care Note Critical Care Time?: No Stability Stability form required: No Heart Score Heart Score: Heart Score Response (Comments) Value History N/A 0 EKG N/A 0 Age N/A 0 Risk Factors N/A 0 Troponin N/A 0 Total 0 I personally scribed for INO MATOS MD ([email or web address]) on 01/02/25 at 19:24. Electronically submitted by Valentino Valenzuela ([email or web address]). INO MATOS MD Jan 02, 2025 19:24
== END 2025-01-02 19:48 | disposition home or self-care (01) ==
LOC: ER 16:52
DX: K59.00 Constipation, unspecified (principal); R53.81 Other malaise; R63.4 Abnormal weight loss; I10 Essential (primary) hypertension; E86.0 Dehydration; F41.9 Anxiety disorder, unspecified; F17.210 Nicotine dependence, cigarettes, uncomplicated; Z79.899 Other long term (current) drug therapy
CPT/HCPCS: 36415; 74018; 80053; 83690; 85025

== ENCOUNTER 2025-01-18 08:31 | Emergency (ER) | payer OTHER, MEDICAID ==
[~2025-01-18] VITALS: Ht 160 cm; Wt 72.9 kg
[~2025-01-18 08:31] MED LIST changes: +POLY335015 PO
[2025-01-18 08:33] VITALS: TEMP 98.3; O2SAT 97
[2025-01-18] MEDS ORDERED: MORPHINE SULFATE 4 MG/ML SYR/VIAL IM ONE (09:15)
--- NOTE | 2025-01-18 09:20 | ED.PDOC ---
GI ASSESSMENT HPI Comments 59 year old female with PMHx anxiety, HTN, brain aneurysm presents to the ED with a chief compliant of abdominal pain 2 weeks ago. Daughter states patient has been experiencing abdominal pain for the past 2 weeks. She was seen in this ED on 01/02/25 for similar symptoms, was discharged with diagnosis of constipation. Patient describes abdominal pain as a burning sensation, rates pain 10/10, has not taken any medication. She is also experiencing poor appetite, unintentional weight loss, constipation, last bowel movement was 2 weeks ago, urine retention, states last urination was about 1 week ago. PCP is Dr. Piper at [facility], has gastrologist appointment in January. Denies fevers chills night sweats Denies nausea vomiting diarrhea Denies blood in the stool Denies sick contact with similar symptoms Denies new foods/medications Denies family history of GI cancer Denies urgency, frequency, hematuria Denies vaginal discharge Chief Complaint: Abdominal Pain Time Seen by MD: 09:05 Primary Care Provider: GRYA Cole Notes: Nurses Notes, Medications, Allergies Allergies: Coded Allergies: NO KNOWN ALLERGIES (Unverified , 11/04/12) Home Meds Active Scripts Polyethylene Glycol 3350 (Miralax) 17 Gm Pow, 17 GM PO BID, #120 POW Prov:INO MATOS MD 01/02/25 Metoprolol Tartrate (LOPRESSOR TABLET) 50 Mg Tb, 75 MG PO BID for 30 Days, #90 TAB 3 Refills Prov:PIA HEATH VOLTAGE INSPECTOR 01/27/24 Amlodipine Besylate (NORVASC TABLET) 5 Mg Tb, 10 MG PO DAILY for 30 Days, #60 TAB 2 Refills Prov:PIA HEATH NP 01/27/24 Reported Medications Lisinopril (Lisinopril) 40 Mg Tab, 1 TAB PO DAILY 06/09/24 Hydrocodone-Acetaminophen (Hydrocodone/Acetaminophen 10-325 mg) 1 Tab Tab, 1 TAB PO TIDPRN PRN 06/09/24 Morphine Sulfate (Morphine Sulfate Cr) 15 Mg Tab, 1 TAB PO DAILY 06/09/24 [Estravan] No Conflict Check 11/04/12 Information Source: Patient, Relative (Child) Mode of Arrival: Ambulatory Timing: Weeks Duration: Since onset Prehospital treatment: None Quality: Burning Vomitus: None Severity: Moderate Recent: None Recent Hx of: None Pain Location: Diffuse Modifying Factors: Nothing Associated sign and symptoms: Constipation, Abdominal Pain Past Medical History PAST MEDICAL HISTORY: Anxiety, HTN Past Medical History (Other): brain aneurysm Surgical History: Denies all surgeries 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: No Pertinent COVER MAKING MACHINE 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 Family History Family History: Unknown Social History Smoker: Cigarettes, Less Than 1 Pack/Day Alcohol: Occasionally Drugs: Denies Drug Use Lives In: Home All Other Systems: Reviewed and Negative (as per HPI) Physical Exam General Appearance: Normal HEENT: Normal ENT Inspection, Pharynx Normal, TMs Normal Neck: Full Range of Motion, Non-Tender, Normal, Normal Inspection Respiratory: Chest Non-Tender, Lungs Clear, No Accessory Muscle Use, No Respiratory Distress, Normal Breath Sounds Cardiovascular: No Edema, No JVD, No Murmur, No Gallop, Normal Peripheral Pulses, Regular Rate/Rhythm Breast Exam: Deferred Gastrointestinal: Tenderness (generalized TTP with palpation ) Genitalia: Deferred Pelvic: Deferred Rectal: Deferred Extremities: No calf tenderness, Normal capillary refill, Normal inspection, Normal range of motion, Non-tender, No pedal edema Musculoskeletal : Apperance: Normal Neurologic: Alert, activity manager II-XII nml as Tested, No Motor Deficits, Normal Affect, Normal Mood, No Sensory Deficits Cerebellar Function: Normal Reflexes: Normal Skin: Dry, Normal Color, Warm Lymphatic: No Adenopathy Was a procedure done? Was a procedure done?: No X-Ray, Labs, Meds, VS Vital Signs Date Time Temp Pulse Resp B/P (MAP) Pulse Ox O2 Delivery O2 Flow Rate FiO2 01/18/25 10:57 78 16 117/65 (82) 01/18/25 10:56 78 16 117/65 01/18/25 10:56 78 16 117/65 01/18/25 09:40 59 19 114/73 01/18/25 09:33 59 19 114/73 01/18/25 08:33 98.3 71 20 134/90 97 98.3 Lab Test 01/18/25 10:56 01/18/25 09:28 Range/Units Urine Color Yellow Yellow Urine Clarity Turbid H Clear Urine pH 6.0 5.0-9.0 Urine Specific [place] 1.028 1.001-1.035 Urine Protein Trace H Negative Urine Ketones Trace Negative Urine Blood Negative Negative /uL Urine Nitrite Negative Negative Urine Bilirubin Negative Negative Urine Urobilinogen 2 H Negative mg/dL Urine Leukocyte Esterase Negative Negative /uL Urine RBC 3 0 - 4 /hpf Urine Microscopic WBC < 1 0-5 /HPF Urine Squamous Epithelial Cells Few <5 /hpf Urine Bacteria None seen None Seen /hpf Urine Mucus Few None Seen Urine Glucose Normal Normal mg/dL White Blood Count 5.6 4.4-10.8 10^3/uL Red Blood Count 4.79 4.0-5.20 10^6/uL Hemoglobin 15.6 12.2-16.2 g/dL Hematocrit 45.9 36.0-46.0 % Mean Corpuscular Volume 95.9 80.0-100.0 fL Mean Corpuscular Hemoglobin 32.5 H 28.0-32.0 pg Mean Corpuscular Hemoglobin Concent 33.9 32.0-36.0 g/dL Red Cell Distribution Width 14.2 11.8-14.3 % Platelet Count 256 140-450 10^3/uL Mean Platelet Volume 7.9 6.9-10.8 fL Neutrophils (%) (Auto) 56.3 37.0-80.0 % Lymphocytes (%) (Auto) 33.0 10.0-50.0 % Monocytes (%) (Auto) 7.6 0.0-12.0 % Eosinophils (%) (Auto) 2.0 0.0-7.0 % Basophils (%) (Auto) 1.1 0.0-2.0 % Neutrophils # (Auto) 3.1 1.6-8.6 10 ^3/uL Lymphocytes # (Auto) 1.8 0.4-5.4 10 ^3/uL Monocytes # (Auto) 0.4 0-1.3 10 ^3/uL Eosinophils # (Auto) 0.1 0-0.8 10 ^3/uL Basophils # (Auto) 0.1 0-0.2 10 ^3/uL Nucleated Red Blood Cells 0.1 % Sodium Level 142 136-145 mmol/L Potassium Level 3.3 L 3.5-5.1 mmol/L Chloride Level 106 98-107 mmol/L Carbon Dioxide Level 28 20-31 mmol/L Anion Gap 8 5-15 Blood Urea Nitrogen 6 L 9-23 mg/dL Creatinine 0.86 0.550-1.02 mg/dL Glomerular Filtration Rate Calc 77 >90 mL/min BUN/Creatinine Ratio 7.0 L 10.0-20.0 Serum Glucose 98 74-106 mg/dL Calcium Level 9.8 8.7-10.4 mg/dL Total Bilirubin 0.7 0.2-1.0 mg/dL Aspartate Amino Transferase (AST) 10 L 13-40 U/L Alanine Aminotransferase (ALT) 13 7-40 U/L Alkaline Phosphatase 86 46-116 U/L Total Protein 7.2 5.7-8.2 g/dL Albumin 4.4 3.2-4.8 g/dL Lipase 44 12-53 U/L Current Medications Medications (Trade) Dose Ordered Sig/Zenon Route Start Time Stop Time Status Last Admin Morphine Sulfate 2 mg ONCE ONCE IM 01/18/25 09:30 01/18/25 09:31 DC 01/18/25 09:33 Morphine Sulfate 2 mg ONCE ONCE IM 01/18/25 09:30 01/18/25 09:31 DC 01/18/25 09:40 [place] [id number] Ph: [phone] DIAGNOSTIC IMAGING Diagnostic Imaging Report : [id number] Signed PATIENT: ZENON MCGUIRECCT: [id number] UNIT: [id number] : 1965 LOC: ER ROOM / BED: / AGE / SEX: 59 / F ADM STATUS: REG ER SERVICE 2 ORDERING PHYSICIAN: DENISSE GRAJEDA NP PROCEDURE(s): ABPL - CT AB PEL WO CON-NO ORAL OR IV REASON: Ab pain ORDER NUMBER(s): [id number], ACCESSION NUMBER(s): [id number] Exam: CT CT AB PEL WO CON-NO ORAL OR IV History: Ab pain Comparison Study: CT CT AB PEL WITH IV CON ONLY on DOS: 06/09/24, CT CT CHEST/AB/PL W CON- IV ONLY on DOS: 01/19/24 Technique: Multidetector spiral CT of the abdomen was performed from lung bases to pubic symphysis. Imaging was performed without IV contrast. Axial, coronal and sagittal multiplanar reformats were obtained from the axial data set by the technologist. Radiation Dose : 1. Abdomen/Pelvis: CTDIvol 11.96 mGy, DLP 570.51 mGy*cm. Findings: Evaluation of solid organs is limited due to lack of intravenous contrast use. Lung Bases: No acute or significant lung base finding. Normal heart size. No pleural or pericardial effusion. Liver: The liver is normal in size. No focal lesions. Gallbladder and Biliary Tree: Unremarkable Spleen: Unremarkable Pancreas: The pancreas is grossly normal in appearance. Adrenal Glands: Unremarkable Kidneys: Kidneys are grossly normal without calculi or hydronephrosis. Bladder: Grossly unremarkable for degree of distention. Bowel: The stomach is grossly normal in appearance. Small bowel and colon are normal in caliber and distribution. Normal appendix is visualized in the right lower quadrant without findings of appendicitis. Ascites: Absent Lymphadenopathy: No mesenteric, retroperitoneal or periportal lymphadenopathy. Abdominal Wall and Mesentery: Unremarkable. Vasculature: The visualized abdominal aorta is normal in size and caliber. Evaluation of abdominal and pelvic vessels is limited due to lack of intravenous contrast. Pelvic Organs: Unremarkable Musculoskeletal: No aggressive focal bony lesions, acute fractures or dislocation. IMPRESSION: No acute abdominal or pelvic findings. Radiation optimization: All CT scans at this facility use at least one of these dose optimization techniques: automated exposure control mA and/or kV adjustment per patient size (includes targeted exams where dose is matched to clinical indication) or iterative reconstruction. ATED BY: JALEESA KING MD DICTATED DATE/TIME: 01/18/25939 SIGNED BY: JALEESA KING MD SIGNED DATE/TIME: 01/18/25939 CC: X-Ray, Labs, Meds, VS Comment 59 year old female with PMHx anxiety, HTN, brain aneurysm presents to the ED with a chief compliant of abdominal pain 2 weeks ago. Patient arrives alert and oriented, ABC's intact, afebrile, vital signs stable, saturating well in room air labs were ordered. CBC was ordered to exclude anemia, blood loss, or infection. CMP was ordered to exclude electrolyte abnormalities, renal failure, dehydration, hyperglycemia and/or liver enzyme abnormalities. Urinalysis was ordered to rule out UTI or hematuria. Lipase was ordered. Diagnostic imaging ordered by me and results interpreted by radiology : CT ABD PEL WO CON: IMPRESSION: No acute abdominal or pelvic findings. Radiation optimization: All CT scans at this facility use at least one of these dose optimization techniques: automated exposure control mA and/or kV adjustment per patient size (includes targeted exams where dose is matched to clinical indication) or iterative reconstruction. Labs in the ED showed (pertinent+ and then pertinent-) Patient was given: Morphine 2mg IM, Morphine 2 mg IM. Tolerated medications with no adverse reaction. Additional MDM Review of External, Non-ED records: External records reviewed. Discussion with independent historian (EMS, family) history obtained from the patient/parents (if applicable) at bedside Chronic conditions affecting care: anxiety, HTN, brain aneurysm Social determinants of health affecting care: None Consideration of admission (observation or admission): I considered escalation of care to admission for this patient, however given the reassuring workup, the patient is safe for outpatient management. Time of 1ST Reevaluation: 10:35 Reevaluation 1ST: Improved Patient Education/Counseling: Diagnosis, Treatment Family Education/Counseling: Diagnosis, Treatment SEPSIS Sepsis Screen Date sepsis recognized/suspect: Jan 18, 2025 Time Sepsis recognized/suspect: 831 Recent Procedure: No On Antibiotic Therapy: No Respiratory Rate >20: No Heart Rate >90: No Temp<36 C (96.8 F) or >38.3 C: No SBP <90 or MAP <65 mmHG: No New Acute Mental Status Change: No Is the patient on CPAP, BIPAP,: No Physician Orders Ct Ab Pel Wo Con-No Oral Or Iv (01/18/25 09:03) Vital Signs Date Time Temp Pulse Resp B/P (MAP) Pulse Ox O2 Delivery O2 Flow Rate FiO2 01/18/25 10:57 78 16 117/65 (82) 01/18/25 10:56 78 16 117/65 01/18/25 10:56 78 16 117/65 01/18/25 09:40 59 19 114/73 01/18/25 09:33 59 19 114/73 01/18/25 08:33 98.3 71 20 134/90 97 98.3 Laboratory Tests Test 01/18/25 09:28 White Blood Count 5.6 10^3/uL (4.4-10.8) Medications Medications Dose Ordered Sig/Zenon Route Start Time Stop Time Status Last Admin Dose Admin Morphine Sulfate 2 mg ONCE ONCE IM 01/18/25 09:30 01/18/25 09:31 DC 01/18/25 09:33 Morphine Sulfate 2 mg ONCE ONCE IM 01/18/25 09:30 01/18/25 09:31 DC 01/18/25 09:40 Departure 1 Departure Time of Disposition: 11:47 Impression: Primary Impression: Abdominal pain Qualified Codes: R10.9 - Unspecified abdominal pain Disposition: 01 HOME / SELF CARE / HOMELESS Condition: Fair Discharged With: Relative Critical Care Note Critical Care Time?: No Stability Stability form required: No Heart Score Heart Score: Heart Score Response (Comments) Value History N/A 0 EKG N/A 0 Age N/A 0 Risk Factors N/A 0 Troponin N/A 0 Total 0 I personally scribed for DENISSE GRAJEDA NP ([email or web address]) on 01/18/25 at 09:20. Electronically submitted by Landy Santa ([email or web address]). I personally scribed for DENISSE GRAJEDA NP ([email or web address]) on 01/18/25 at 09:44. Electronically submitted by Landy Santa ([email or web address]). DENISSE GRAJEDA NP Jan 18, 2025 09:20
[2025-01-18] MEDS: MORPHINE SULFATE INJ 2 MG/ml SYRG IM ONE ×2 (09:33→09:40)
--- NOTE | 2025-01-18 09:42 | DVH ---
Exam: CT CT AB PEL WO CON-NO ORAL OR IV History: Ab pain Comparison Study: CT CT AB PEL WITH IV CON ONLY on DOS: 06/09/24, CT CT CHEST/AB/PL W CON- IV ONLY on DOS: 01/19/24 Technique: Multidetector spiral CT of the abdomen was performed from lung bases to pubic symphysis. I maging was performed without IV contrast. Axial, coronal and sagittal multiplanar reformats were obta ined from the axial data set by the technologist. Radiation Dose : 1. Abdomen/Pelvis: CTDIvol 11.96 mGy, DLP 570.51 mGy*cm. Findings: Evaluation of solid organs is limited due to lack of intravenous contrast use. Lung Bases: No acute or significant lung base finding. Normal heart size. No pleural or pericardial effusion. Liver: The liver is normal in size. No focal lesions. Gallbladder and Biliary Tree: Unremarkable Spleen: Unremarkable Pancreas: The pancreas is grossly normal in appearance. Adrenal Glands: Unremarkable Kidneys: Kidneys are grossly normal without calculi or hydronephrosis. Bladder: Grossly unremarkable for degree of distention. Bowel: The stomach is grossly normal in appearance. Small bowel and colon are normal in caliber and d istribution. Normal appendix is visualized in the right lower quadrant without findings of appendicit is. Ascites: Absent Lymphadenopathy: No mesenteric, retroperitoneal or periportal lymphadenopathy. Abdominal Wall and Mesentery: Unremarkable. Vasculature: The visualized abdominal aorta is normal in size and caliber. Evaluation of abdominal a nd pelvic vessels is limited due to lack of intravenous contrast. Pelvic Organs: Unremarkable Musculoskeletal: No aggressive focal bony lesions, acute fractures or dislocation. IMPRESSION: No acute abdominal or pelvic findings. Radiation optimization: All CT scans at this facility use at least one of these dose optimization [place] hniques: automated exposure control mA and/or kV adjustment per patient size (includes targeted exam s where dose is matched to clinical indication) or iterative reconstruction.
[2025-01-18 09:53] LABS: Hematocrit 45.9 % (36.0-46.0); Hemoglobin 15.6 g/dL (12.2-16.2); Mean Corpuscular Hemoglobin 32.5 pg (28.0-32.0); Mean Corpuscular Volume 95.9 fL (80.0-100.0); Nucleated Red Blood Cells % 0.1 %
[2025-01-18 10:08] LABS: Alanine Aminotransferase 13 U/L (7-40); Albumin 4.4 g/dL (3.2-4.8); Alkaline Phosphatase 86 U/L (46-116); Anion Gap 8 (5-15); BUN/Creatinine Ratio 7.0 (10.0-20.0); Bilirubin, Total 0.7 mg/dL (0.2-1.0); Calcium 9.8 mg/dL (8.7-10.4); Carbon Dioxide 28 mmol/L (20-31); Chloride 106 mmol/L (98-107); Glucose 98 mg/dL (74-106); Lipase 44 U/L (12-53); Sodium 142 mmol/L (136-145); Total Protein 7.2 g/dL (5.7-8.2)
[2025-01-18 10:20] LABS: Blood Urea Nitrogen 6 mg/dL (9-23); Potassium 3.3 mmol/L (3.5-5.1)
[2025-01-18 10:57] VITALS: BP 117/65; PULSE 78; RESP 16
[2025-01-18 11:25] LABS: Urine Protein, UAD TRACE (Negative)
== END 2025-01-18 11:55 | disposition home or self-care (01) ==
LOC: ER 08:31
DX: R10.9 Unspecified abdominal pain (principal); I10 Essential (primary) hypertension; F17.210 Nicotine dependence, cigarettes, uncomplicated; Z79.899 Other long term (current) drug therapy
CPT/HCPCS: 36415; 74176; 80053; 81001; 83690; 85025; 96372; 99285; J2270